=== PATIENT | male | born 1970 | race African-American/Black ===

== ENCOUNTER 2017-05-26 07:50 | Inpatient (IN) ==
[2017-05-26] MEDS ORDERED: FUROSEMIDE 40 MG/4 ML VIAL IV STA (08:20)
--- NOTE | 2017-05-26 08:24 | Emergency Department Note ---
Arrival - Arrival Chief Complaint: Extremity Problem Stated Complaint: both legs aching/sores ED Nursing Triage Note: pt c/o pain and swelling to BLE x4 days. pt reports weeping to parts of lower legs x2 days. Mode of Arrival: Ambulatory Limitations: No Limitations Source: Patient, RN Notes Reviewed Time Seen by Provider: 05/26/17 08:19 - History of Present Illness HPI Narrative: Patient is a 46-year-old white male with a known history of hypertension who is been out of his medications for 2 weeks. The patient complains of lower extremity edema for 2 weeks. For the last week he has had a draining wound from his left pretibial area. He does have some exertional shortness of breath and also has some orthopnea. Has a known history of congestive heart failure. He has been followed in the past by Dr. Alex. Patient denies any chest pain. There is no history of chills or fever. Onset (ago): week(s) (2) Consistency: constant Severity: moderate Quality: other Allergies/Adverse Reactions: Allergies Allergy/AdvReac Type Severity Reaction Status Date / Time No Known Allergies Allergy Verified 05/26/17 08:06 Home Medications: Home Medications Medication Instructions Recorded Confirmed Type Lisinopril [Prinivil] 20 mg PO QAM 03/07/17 03/07/17 History Potassium Chloride Cap/Tab [K Dur] 10 meq PO DAILY #14 tablet 03/07/17 Rx amLODIPine [Norvasc] 10 mg PO QAM 03/07/17 03/07/17 History Glimepiride [Amaryl] 2 mg PO DAILY W/BREAKFAST #30 03/28/17 Rx tablet Spironolactone 12.5 mg PO QAM #30 tablet 03/28/17 Rx Furosemide Tab [Lasix Tab] 40 mg PO BID DIURETIC #60 tablet 05/20/17 Rx Review of System - Review of System 12 point system: reviewed and no additional remarkable complaints except as stated - Review of System Constitutional: Absent: chills, fever Respiratory: Absent: cough, respiratory distress, wheezing Cardiovascular: Present: dyspnea on exertion, orthopnea, edema. Absent: chest pain, palpitations, syncope Gastrointestinal: Absent: abdominal pain, nausea, vomiting Skin: Present: rash Medical,Surgical,& Family Hx - Medical History Cardio: History of: CHF, CAD, Hypertension Endocrine: History of: Diabetes Mellitus (IDDM), Diabetes Mellitus (NIDDM) Rheumatology: History of;: Rheumatoid Arthritis Respiratory: History of: Obstructive Sleep Apnea No history of: Asthma, Bronchitis, COPD, Intubation, Pulmonary Embolism, Pulmonary Hypertension, Pneumonia, Lung Cancer Gastrointestinal: History of: GERD No history of: Bowel Obstruction, Clostridium Difficile, Crohn's Disease, Diverticulitis/ Diverticulosis, Esophageal Varices, Gastrointestinal Bleed, Hemorrhoids, Hematochezia, Hepatitis, Liver Problems, Pancreatitis, Polyps, Ulcerative Colitis, Gastrointestinal Cancer Musculoskeletal: History of: Musculoskeletal Problems (osteoarthritis) Hematology: No history of: Blood Transfusion Reaction Other: History of: Miscellaneous Medical Problems (morbid obesity) No history of: Anesthesia Reactions, Anaphylaxis, Cancer, Eczema, HIV - Surgical History Cardiac Surgeries: Patient Denies: Cardiac Catheterization, Cardiac Surgery, Vascular Access Devices HEENT Surgeries: Patient denies: Tonsilectomy & Adenoidectomy Abdominal Surgeries: Surgical HX of: Abdominal Surgery, Appendectomy, Cholecystectomy, Hernia Repair Patient denies: Colonoscopy, Gastric Bypass Surgery, EGD, Splenectomy - Family History Family History: Reports;: Family Diabetes (MOTHER), Family Hypertension (MOTHER) - Social History Smoking Status: Never smoker Frequency of Alcohol Use: None Type of Drug Use: None Exam Vital Signs: Vital Signs Temperature 98.9 F 05/26/17 08:10 Pulse Rate 88 05/26/17 09:14 Respiratory Rate 20 05/26/17 09:14 Blood Pressure 218/133 05/26/17 09:14 O2 Sat by Pulse Oximetry 99 05/26/17 09:14 GENERAL: This is a well-nourished well-developed morbidly obese black male in no apparent distress. VITAL SIGNS: Reviewed HEENT: Head is atraumatic and normocephalic. Pupils are equal round react to light. Extraocular movements are intact. Oropharynx is benign with moist mucous membranes. NECK: Neck is soft and supple without tenderness. There are no masses. There is no lymphadenopathy. LUNGS: Lungs are clear to auscultation. Chest rises symmetrically. There is no chest wall tenderness. CV: Heart is regular rate and rhythm without murmurs rubs or gallops. ABDOMEN: Abdomen is soft, nontender to palpation. There are no abdominal abnormal masses palpated. There is no organomegaly. Bowel sounds are present and active. SKIN: Skin is warm and dry. No rash. EXTREMITIES: Patient has full range of motion without tenderness. There is 3+ pitting pedal edema with hyperpigmentation of the pretibial areas bilaterally. Patient has serous drainage from the pretibial area on the left. Patient has an absent fourth toe of the left foot. NEUROLOGIC: Awake alert and oriented 4. Cranial nerves II through XII are grossly intact. Motor is 5 over 5 in all extremities bilaterally. Course - Consultations Consultation #1: Discussed with Dr. Nino. Time: 10:12 Consultation #2: Discussed with hospitalist. Patient will be admitted to their service. Results - Labs CBC & BMP: 05/26/17 08:24 05/26/17 08:24 Lab Results: I have reviewed the patients labs Labs: Laboratory Tests 02/21/15 05/26/17 09:43 08:24 Troponin I 0.186 H Urine Opiates Screen Negative Ur Barbiturates Screen Negative Ur Phencyclidine Scrn Negative U Amphetamine/Methamph Negative U Benzodiazepines Scrn Negative U Cocaine Metab Screen Positive H U Cannabinoids Screen Negative - EKG EKG results: interpreted by ERMD - Impressions EKG: Normal sinus rhythm with rate of 80, left axis deviation, nonspecific ST-T wave changes. - Diagnostic Findings Procedure: Chest x-ray: image reviewed by me (Increased pulmonary markings bilaterally, cardiomegaly) Disposition Clinical Impression: Congestive heart failure, Lower extremity edema with skin breakdow, Diabetes mellitus, Essential hypertension, Noncompliance with medication regimen, Renal failure, Venous stasis disease, Cocaine abuse, Cardiomyopathy Case discussed with: patient Disposition: Still a Patient Condition: Stable
[2017-05-26] MEDS ORDERED: FUROSEMIDE 100 MG/10 ML VIAL ONE (08:36)
--- NOTE | 2017-05-26 08:44 | XRay Report ---
History: Dyspnea Date: 05/26/2017 Study: Chest x-ray PA and lateral Comparison exam: May 20, 2017 portable chest x-ray There is mild cardiomegaly. The pulmonary vasculature is slightly prominent. There is some minor hazy edema in the lower lungs. There is trace bilateral pleural effusion. Osseous structures are unchanged. Impression: CHF with some mild bilateral pulmonary edema and trace bilateral pleural effusion PROCEDURE INTERPRETED AT [facility] DEPARTMENT OF RADIOLOGY Final Report Signed by: Dr. Kiah Ramirez
[2017-05-26 08:56] LABS: Basophils % 0.3 % (0.0-0.8); Eosinophils # 0.1 10*3/uL (0.0-0.87); Eosinophils % 0.9 % (0.00-10.9); Hemoglobin 14.8 GM/DL (14.0-18.0); Immature Granulocytes % 0.5 %; Immature Granulocytes Absolute 0.04 #; Lymphocytes # 1.4 10*3/uL (1.4-4.0); Lymphocytes % 18.8 % (21.2-54.2); Mean Corpuscular HGB Conc 31.5 GM/DL (32-36); Mean Corpuscular Hemoglobin 22 PG (27-34); Mean Corpuscular Volume 68.7 FL (87-102); Monocytes # 0.5 10*3/uL (0.11-0.8); Monocytes % 6.3 % (1.7-12.7); Neutrophils # 5.6 10*3/uL (1.4-7.4); Neutrophils % 73.2 % (38.7-73.9); Platelet Count 192 T/CUMM (130-400); Red Blood Count 6.84 MC/CUMM (3.8-5.5); Red Cell Distribution Width 18.7 % (9.3-17.3); White Blood Count 7.7 T/CUMM (4-12)
[2017-05-26 09:08] LABS: Apearance,Urine CLEAR (Clear); Bilirubin,Urine Negative (Negative); Blood, Urine Small mg/dL (Negative); Glucose,Urine (UA) >=500 mg/dL (Negative); Ketones,Urine Negative (Negative); Mucus,Urine Occasional /LPF (Occasional); Nitrite,Urine Negative (Negative); Protein,Urine >=500 MG/DL; RBC,Urine 1 /HPF (0-4); Urine Color Straw (Yellow); Urine Specific Gravity 1.017 (1.001-1.035); Urine Urobilinogen < 2.0 EU/DL (0.2-1.0)
[2017-05-26 09:19] LABS: Barbiturates Screen,Urine Negative (Negative); Benzodiazepines Screen,Urine Negative (Negative); Cannabinoid Screen,Urine Negative (Negative); Opiate Screen,Urine Negative (Negative); Phencyclidine Screen,Urine Negative (Negative)
[2017-05-26 09:26] LABS: Alanine Aminotransferase 29 U/L (16-61); Albumin 2.9 G/DL (3.4-5.0); Alkaline Phosphatase 109 U/L (45-117); Aspartate Amino Transferase 26 U/L (0-37); Bilirubin,Total < 0.39 MG/DL (0.2-1.0); Blood Urea Nitrogen 25 MG/DL (7-18); Calcium 8.9 MG/DL (8.5-10.1); Glucose 407 MG/DL (74-106); Osmolality,Calculated 293.8 MOS/KG (273-304); Potassium 4.8 MMOL/L (3.5-5.1); Sodium 137 MMOL/L (136-145); Total Protein 6.9 G/DL (6.4-8.3)
--- NOTE | 2017-05-26 09:36 | EKG Report ---
Stationary ECG Study [facility] ER Test Date: 05/26/2017 9:32:18 AM Pat Name: NELSON MONTANO Department: Room: Gender: M Physician Office Secretary: : 1970 Requested by: Bakari Cadet Order Number: [id number] Reading MD: PATEL CALDWELL Intervals [place] Rate: 80 P: 50 CO: 161 QRS: -36 QRSD: 103 T: 103 QT: 398 QTc: 434 Interpretive Statements SINUS RHYTHM at 80 bpm LEFT AXIS DEVIATION PATTERN CONSISTENT WITH PULMONARY DISEASE NONSPECIFIC T-WAVE ABNORMALITY Electronically Signed On 05-29-17 08:50:47 CDT by PATEL CALDWELL [email or web address]
[2017-05-26] MEDS: hydrALAZINE 20 MG/1 ML VIAL IV STA ×2 (10:12→10:55)
[2017-05-26 10:40] LABS: Hypochromasia 2+; Target Cells Slight
[2017-05-26] MEDS ORDERED: hydrALAZINE 20 MG/1 ML VIAL ONE (10:56)
--- NOTE | 2017-05-26 11:11 | Cardiology Consult Note ---
Assessment and Plan (1) Acute on chronic systolic heart failure Status: Chronic Assessment and plan: 1. 46-year-old morbidly obese black male with uncontrolled diabetes as well as long history of uncontrolled hypertension it was probable hypertensive cardiomyopathy since at least early 2014 admitted several times the hospital service was to Dr. Alex with heart failure and hypertension. He has been positive for cocaine on numerous occasions. He has been out of his medications for over a week and comes in with severe hypertension and 2 weeks of left and right heart failure symptoms (orthopnea and significant increased lower extremity edema) 2. He appears to be on good medications he simply needs to take them. Aggressive IV diuresis for a short time will be helpful 3. Would add low-dose Coreg 3.125 minutes twice daily for blood pressure control and for hypertensive cardiomyopathy treatment 4. I discussed that he is unlikely to live to be 48 if he does not discontinue all cocaine use. He denies using any for the last month although he is positive today. 5. We discussed his absolute need to take medicines daily without missing. We also discussed his need for primary care follow-up. He says he plans to [facility] when he [facility] a chance. 6. We discussed his need for significant weight loss. He drinks fair amount of soda, will needs 2 meals a day. We discussed need to avoid simple carbohydrates at least 3 times per day. 7. Severely reduced ejection fraction early 2014 was noted. Heart catheterization was not considered previously due to his severe noncompliance. Current Visit: No (2) Cocaine abuse Status: Chronic Current Visit: No (3) Cardiomyopathy Problem details: Etiology unknown, patient has not had cardiac catheterization. This is suspected to be related to uncontrolled hypertension, drug use and medication noncompliance. Status: Chronic Current Visit: No (4) Edema Status: Acute Current Visit: No (5) Morbid obesity Status: Acute Current Visit: No (6) Renal failure Status: Acute Current Visit: Yes History of Present Illness - Consult Narrative History of present illness: Mr. Padgett is a 46 year old male with history of hypertensive cardiac myopathy since at least early 2014. He has been admitted several times the hospital service and once Dr. Alex for heart failure and hypertension. Heart cath was not considered due to his noncompliance which has been severe. He has been reported to be on cocaine since at least early 2014 and reports she has been off now for a month although he is positive on test today. He ran out of medication at least a week ago and has 2 weeks of significant increased lower extreme edema and orthopnea. Is not having chest discomfort palpitations presyncope or syncope. CC: - Home Medications and Allergies Home Medications: Home Medications Medication Instructions Recorded Confirmed Type Lisinopril [Prinivil] 20 mg PO QAM 03/07/17 03/07/17 History Potassium Chloride Cap/Tab [K Dur] 10 meq PO DAILY #14 tablet 03/07/17 Rx amLODIPine [Norvasc] 10 mg PO QAM 03/07/17 03/07/17 History Glimepiride [Amaryl] 2 mg PO DAILY W/BREAKFAST #30 03/28/17 Rx tablet Spironolactone 12.5 mg PO QAM #30 tablet 03/28/17 Rx Furosemide Tab [Lasix Tab] 40 mg PO BID DIURETIC #60 tablet 05/20/17 Rx Allergies/Adverse Reactions: Allergies Allergy/AdvReac Type Severity Reaction Status Date / Time No Known Allergies Allergy Verified 05/26/17 08:06 Medical,Surgical,& Family Hx - Medical History Cardio: History of: CHF, CAD, Hypertension Endocrine: History of: Diabetes Mellitus (IDDM), Diabetes Mellitus (NIDDM) Rheumatology: History of;: Rheumatoid Arthritis Respiratory: History of: Obstructive Sleep Apnea No history of: Asthma, Bronchitis, COPD, Intubation, Pulmonary Embolism, Pulmonary Hypertension, Pneumonia, Lung Cancer Gastrointestinal: History of: GERD No history of: Bowel Obstruction, Clostridium Difficile, Crohn's Disease, Diverticulitis/ Diverticulosis, Esophageal Varices, Gastrointestinal Bleed, Hemorrhoids, Hematochezia, Hepatitis, Liver Problems, Pancreatitis, Polyps, Ulcerative Colitis, Gastrointestinal Cancer Musculoskeletal: History of: Musculoskeletal Problems (osteoarthritis) Hematology: No history of: Blood Transfusion Reaction Other: History of: Miscellaneous Medical Problems (morbid obesity) No history of: Anesthesia Reactions, Anaphylaxis, Cancer, Eczema, HIV - Surgical History Cardiac Surgeries: Patient Denies: Cardiac Catheterization, Cardiac Surgery, Vascular Access Devices HEENT Surgeries: Patient denies: Tonsilectomy & Adenoidectomy Abdominal Surgeries: Surgical HX of: Abdominal Surgery, Appendectomy, Cholecystectomy, Hernia Repair Patient denies: Colonoscopy, Gastric Bypass Surgery, EGD, Splenectomy - Family History Family History: Reports;: Family Diabetes (MOTHER), Family Hypertension (MOTHER) - Social History Smoking Status: Never smoker Frequency of Alcohol Use: None Type of Drug Use: None Physical Examination Vital Signs Temp Pulse Resp BP Pulse Ox 98.9 F 91 H 20 194/110 97 05/26/17 08:03 05/26/17 08:03 05/26/17 08:03 05/26/17 08:03 05/26/17 08:03 General: Present: Appears Well, No Apparent Distress Cardiac: Present: Reg Rate and Rhythm. Absent: Systolic Murmur, Diastolic Murmur Lungs: Present: No Wheeze, Rales, Rhonchi, Other (Distant heart sounds probably due to body habitus) Abdomen: Present: Soft, Non-Tender Extremities: Present: +3 Edema, Other (1 missing small toe.) Result/EKG - Labs CBC & BMP: 05/26/17 08:24 05/26/17 08:24 Labs: Laboratory Results - last 24 hr 05/26/17 05/26/17 05/26/17 08:24 08:24 08:24 WBC 7.7 RBC 6.84 H Hgb 14.8 Hct 47.0 MCV 68.7 L MCH 22 L MCHC 31.5 L RDW 18.7 H Plt Count 192 Neut % (Auto) 73.2 Lymph % (Auto) 18.8 L [place] % (Auto) 6.3 Eos % (Auto) 0.9 Baso % (Auto) 0.3 Neut # (Auto) 5.6 Lymph # (Auto) 1.4 [place] # (Auto) 0.5 Eos # (Auto) 0.1 Baso # (Auto) 0.0 Immature Gran % 0.5 Nucleated RBC % 0.0 Immature Gran # 0.04 Nucleated RBCs # 0.00 Sodium 137 Potassium 4.8 Chloride 105 Carbon Dioxide 26 Anion Gap 10.8 BUN 25 H Creatinine 1.60 H GFR Calculation 96 BUN/Creatinine Ratio 15.00 Glucose 407 H Calculated Osmolality 293.8 Calcium 8.9 Total Bilirubin < 0.39 AST 26 ALT 29 Alkaline Phosphatase 109 Total Protein 6.9 Albumin 2.9 L Globulin 4.0 H Albumin/Globulin Ratio 0.7 L Urine Color Straw Urine Appearance Clear Urine pH 6.0 Ur Specific [place] 1.017 Urine Protein >=500 Urine Glucose (UA) >=500 Urine Ketones Negative Urine Blood Small Urine Nitrate Negative Urine Bilirubin Negative Urine Urobilinogen < 2.0 H Urine Leukocytes Negative Urine RBC 1 Urine Mucus Occasional Ur Culture Indicated? Not indicated Urine Opiates Screen Ur Barbiturates Screen Ur Phencyclidine Scrn U Amphetamine/Methamph U Benzodiazepines Scrn U Cocaine Metab Screen U Cannabinoids Screen 05/26/17 08:24 WBC RBC Hgb Hct MCV MCH MCHC RDW Plt Count Neut % (Auto) Lymph % (Auto) [place] % (Auto) Eos % (Auto) Baso % (Auto) Neut # (Auto) Lymph # (Auto) [place] # (Auto) Eos # (Auto) Baso # (Auto) Immature Gran % Nucleated RBC % Immature Gran # Nucleated RBCs # Sodium Potassium Chloride Carbon Dioxide Anion Gap BUN Creatinine GFR Calculation BUN/Creatinine Ratio Glucose Calculated Osmolality Calcium Total Bilirubin AST ALT Alkaline Phosphatase Total Protein Albumin Globulin Albumin/Globulin Ratio Urine Color Urine Appearance Urine pH Ur Specific [place] Urine Protein Urine Glucose (UA) Urine Ketones Urine Blood Urine Nitrate Urine Bilirubin Urine Urobilinogen Urine Leukocytes Urine RBC Urine Mucus Ur Culture Indicated? Urine Opiates Screen Negative Ur Barbiturates Screen Negative Ur Phencyclidine Scrn Negative U Amphetamine/Methamph Negative U Benzodiazepines Scrn Negative U Cocaine Metab Screen Positive H U Cannabinoids Screen Negative
--- NOTE | 2017-05-26 11:17 | Hospitalist History & Physical ---
Assessment and Plan - Time spent with patient Time spent with patient: Less than 30 minutes (1) CHF (congestive heart failure) Status: Acute Assessment and plan: Chest x-ray shows evidence of CHF with some mild bilateral pulmonary edema and trace bilateral pleural effusion. BNP is 134. Will continue IV Lasix. Obtain troponins q8 3, CBC and BMP in the morning. CIERRA sandiejuan Current Visit: No (2) Lower extremity edema Status: Acute Assessment and plan: IV Lasix. CIERRA hosjuan. Current Visit: No (3) Diabetes mellitus Status: Acute Assessment and plan: Serum glucose 406. Sliding scale insulin per protocol. Accu-Cheks ACHS. Diabetic consistent diet. Current Visit: Yes (4) Essential hypertension Status: Acute Assessment and plan: Patient was given IV hydralazine in the ED and responded appropriately. Will restart home medications. Current Visit: Yes (5) Noncompliance with medication regimen Status: Acute Assessment and plan: Patient admits to medical noncompliance stating that he primarily uses the ED as his PCP. We will consult social work/case management to assist with prescription assistance planning Current Visit: Yes (6) Renal failure Status: Acute Current Visit: Yes (7) Cocaine abuse Status: Acute Current Visit: Yes History of Present Illness Chief complaint: CHF exacerbation History of present illness: Mr. Padgett is a 46 year old -[place] male with a past medical history significant for medical noncompliance, congestive heart failure, hypertension, diabetes mellitus, obstructive sleep apnea and cocaine abuse who presents to the ED today with complaints of shortness of breath and lower extremity edema 2 weeks. The patient was recently seen here in the emergency room 2 weeks ago and approximately 1 month ago where he was treated for similar problems and discharge from the ED with prescriptions for antihypertensives. Patient states that he has not been able to refill his medications due to transportation issues. He also states that he does not have a primary care doctor and no medical insurance. On admission, the patient is sitting on the side of the bed and in no acute distress. He complains only of not having any of his medications. He notes that this SOB has progressively worsened with exertion, however he is satting 100% on 2L per NC. He does confirm pitting edema in his lower extremities bilaterally with a draining wound from his left leg, abdominal distention, headache and blurry vision. He denies cough, chest pain, palpitations, pain with inspiration, N/V, change in appetite. Lab work on admission is significant for: WBC 7.7, Hgb 14.8, Hct 47.0, MCV 68.7, sodium 135 , potassium 4.8, chloride 105, BUN 25, creatinine 1.60, glucose 407, BNP 134. Urinalysis is unremarkable. Toxicology is positive for cocaine. After discussion with Dr. Figueredo, ER physician, and Dr. Tony, admitting physician, patient will be admitted to the hospital medicine service for further evaluation and treatment. He is a full code. Home meds have been reviewed and reconciled. Home Medications Medication Instructions Recorded Confirmed Type amLODIPine [Norvasc] 10 mg PO QAM 03/07/17 05/26/17 History Glimepiride [Amaryl] 2 mg PO DAILY W/BREAKFAST #30 03/28/17 05/26/17 Rx tablet Spironolactone 12.5 mg PO QAM #30 tablet 03/28/17 05/26/17 Rx Furosemide Tab [Lasix Tab] 40 mg PO BID DIURETIC #60 tablet 05/20/17 05/26/17 Rx Allergies Allergy/AdvReac Type Severity Reaction Status Date / Time No Known Allergies Allergy Verified 05/26/17 08:06 Medical,Surgical,& Family Hx - Medical History Cardio: History of: CHF, CAD, Hypertension Endocrine: History of: Diabetes Mellitus (IDDM), Diabetes Mellitus (NIDDM) Rheumatology: History of;: Rheumatoid Arthritis Respiratory: History of: Obstructive Sleep Apnea No history of: Asthma, Bronchitis, COPD, Intubation, Pulmonary Embolism, Pulmonary Hypertension, Pneumonia, Lung Cancer Gastrointestinal: History of: GERD No history of: Bowel Obstruction, Clostridium Difficile, Crohn's Disease, Diverticulitis/ Diverticulosis, Esophageal Varices, Gastrointestinal Bleed, Hemorrhoids, Hematochezia, Hepatitis, Liver Problems, Pancreatitis, Polyps, Ulcerative Colitis, Gastrointestinal Cancer Musculoskeletal: History of: Musculoskeletal Problems (osteoarthritis) Hematology: No history of: Blood Transfusion Reaction Other: History of: Miscellaneous Medical Problems (morbid obesity) No history of: Anesthesia Reactions, Anaphylaxis, Cancer, Eczema, HIV - Surgical History Cardiac Surgeries: Patient Denies: Cardiac Catheterization, Cardiac Surgery, Vascular Access Devices HEENT Surgeries: Patient denies: Tonsilectomy & Adenoidectomy Abdominal Surgeries: Surgical HX of: Abdominal Surgery, Appendectomy, Cholecystectomy, Hernia Repair Patient denies: Colonoscopy, Gastric Bypass Surgery, EGD, Splenectomy - Family History Family History: Reports;: Family Diabetes (MOTHER), Family Hypertension (MOTHER) - Social History Smoking Status: Never smoker Frequency of Alcohol Use: None Type of Drug Use: None Marital Status: Single Lives With:: Parent Functional capacity: independent ambulation 12 point system: reviewed and no additional remarkable complaints except as stated Exam - Constitutional Vitals: Period Temp Pulse Resp BP Sys/Snyder Pulse Ox Last 24 Hr 98.9 F-98.9 F 82-110 20-20 167-218/90-133 97-99 Exam: General appearance: Morbidly obese, no acute distress - Head Head exam: Present: normocephalic, atraumatic - Eye Eye exam: Present: EOMI. Absent: conjunctival injection, nystagmus Pupils: Present: ESTELA, normal accommodation - ENT ENT exam: Present: normal exam, normal external ear exam - Neck Neck exam: Present: normal inspection. Absent: lymphadenopathy, tenderness, thyromegaly - Respiratory Respiratory exam: Present: decreased breath sounds bilaterally. - Cardiovascular Cardiovascular exam: Present: regular rate and rhythm. Absent: carotid bruit, gallop, rubs - GI/Abdominal GI/Abdominal exam: Present: normal bowel sounds. Absent: ascites, distended, mass - Extremities Exam Extremities exam: Present: 2+ pitting edema bilaterally, left pretibial draining wound - Back Exam Back exam: Absent: CVA tenderness (L), CVA tenderness (R) - Neurological Exam Neurological exam: Present: alert, oriented X3, CN II-XII intact - Psychiatric Psychiatric exam: Present: normal affect, normal mood - Skin Skin exam: Present: normal color, warm, dry Results - Labs CBC & BMP: 05/26/17 08:24 05/26/17 08:24 Lab Results: I have reviewed the past 24 hour labs - Diagnostic Findings Procedure: Chest x-ray: image reviewed by me, report reviewed by me
[2017-05-26] MEDS ORDERED: DEXTROSE 50% 25 GM/50 ML VIAL IV PRN (14:21)
[2017-05-26] MEDS ORDERED: MAGNESIUM SULF RIDER 4 GM in PREMIX 1 EACH IV PRN (14:21)
[2017-05-26] MEDS ORDERED: POTASSIUM CHLORIDE 20 MEQ TABLET PO PRN (14:21)
[2017-05-26] MEDS ORDERED: MAGNESIUM SULF RIDER 2 GM in PREMIX 1 EACH IV PRN (14:21)
[2017-05-26] MEDS ORDERED: GLUCAGON 1 MG VIAL IM PRN (14:21)
[2017-05-26] MEDS: PANTOPRAZOLE 40 MG TABLET PO SCH (15:56)
[2017-05-26] MEDS: FUROSEMIDE 40 MG/4 ML VIAL IV SCH (16:36)
[2017-05-26] MEDS: INSULIN LISPRO 100 UNIT/ML SUBCUT SCH ×2 (16:37→20:34)
[2017-05-26] MEDS: CYCLOBENZAPRINE 10 MG TABLET PO PRN (20:00)
--- NOTE | 2017-05-27 07:39 | XRay Report ---
History short of breath Comparison 05/26/2017 The heart and vessels are mildly enlarged There remain mild diffuse bilateral pulmonary opacities minimally improved in the interval. No more focal consolidation seen. Impression: Minimal improvement with continued mild diffuse pulmonary edema PROCEDURE INTERPRETED AT [facility] DEPARTMENT OF RADIOLOGY Final Report Signed by: Dr. Ignacia Can
[2017-05-27 07:46] LABS: Basophils % 0.2 % (0.0-0.8); Eosinophils # 0.1 10*3/uL (0.0-0.87); Hematocrit 46.1 VOL% (42.0-52.0); Hemoglobin 14.2 GM/DL (14.0-18.0); Immature Granulocytes % 0.2 %; Immature Granulocytes Absolute 0.02 #; Lymphocytes # 1.4 10*3/uL (1.4-4.0); Lymphocytes % 16.9 % (21.2-54.2); Mean Corpuscular HGB Conc 30.8 GM/DL (32-36); Mean Corpuscular Hemoglobin 21 PG (27-34); Monocytes # 0.8 10*3/uL (0.11-0.8); Monocytes % 9.5 % (1.7-12.7); Neutrophils % 72.2 % (38.7-73.9); Platelet Count 185 T/CUMM (130-400); Red Blood Count 6.78 MC/CUMM (3.8-5.5); Red Cell Distribution Width 18.6 % (9.3-17.3); White Blood Count 8.4 T/CUMM (4-12)
[2017-05-27 08:04] LABS: Hypochromasia 2+; Microcytosis 1+; Ovalocytes Slight
[2017-05-27 08:05] LABS: Platelet Estimate Adequate
[2017-05-27 08:21] LABS: Calcium 9.3 MG/DL (8.5-10.1); Osmolality,Calculated 286.7 MOS/KG (273-304); Potassium 4.2 MMOL/L (3.5-5.1)
--- NOTE | 2017-05-27 08:29 | Hospitalist Progress Note ---
Assessment and Plan (1) Acute on chronic systolic heart failure Status: Chronic Assessment and plan: Status: Acute Assessment and plan: Chest x-ray shows evidence of CHF with some mild bilateral pulmonary edema and trace bilateral pleural effusion. BNP is 134. Will continue IV Lasix. card consulted will follow their recs , also will get ECHO Current Visit: No (2) Lower extremity edema Status: Acute Assessment and plan: IV Lasix. CIERRA hoses. Current Visit: No (3) Diabetes mellitus Status: Acute Assessment and plan: Sliding scale insulin per protocol. Accu-Cheks ACHS. Diabetic consistent diet. Current Visit: Yes (4) Essential hypertension Status: Acute Assessment and plan: Will restart home medications. add coreg as per CARD Current Visit: Yes (5) Noncompliance with medication regimen Status: Acute Assessment and plan: Patient admits to medical noncompliance stating that he primarily uses the ED as his PCP. We will consult social work/case management to assist with prescription assistance planning Current Visit: Yes (6) Renal failure Status: Acute Current Visit: Yes (7) Cocaine abuse Status: Acute Current Visit: Yes Current Visit: No Hospitalist: Subjective Interval history: feeling better than yesterday . still mild sob Exam - Constitutional Vitals: Period Temp Pulse Resp BP Sys/Snyder Pulse Ox Last 24 Hr 96.8 F-98.3 F 81-98 18-20 121-218/59-133 92-100 heent, pearle neck, supple. chest bibasilar rales [facility], s1 s2. abd, soft, bs+ measurement psychologist, alert orientedx3 afocal lower extrmity, 2+ pedal edema with some skin tears Results - Labs CBC & BMP: 05/27/17 07:13 05/27/17 07:13
[2017-05-27] MEDS: GLIMEPIRIDE 2 MG TABLET PO SCH (08:45)
[2017-05-27] MEDS: INSULIN LISPRO 100 UNIT/ML SUBCUT SCH ×4 (08:46→20:33)
[2017-05-27] MEDS: PANTOPRAZOLE 40 MG TABLET PO SCH (08:46)
[2017-05-27] MEDS: FUROSEMIDE 40 MG/4 ML VIAL IV SCH ×2 (08:46→16:50)
[2017-05-27] MEDS: MUPIROCIN 2% OINT 22 GM TUBE TOP SCH ×2 (08:46→20:33)
[2017-05-27] MEDS ORDERED: LOSARTAN 50 MG TABLET PO SCH (09:00)
[2017-05-27] MEDS ORDERED: amLODIPine 10 MG TABLET PO SCH (09:00)
[2017-05-27] MEDS ORDERED: SKIN HEALING OINT (AQUAPHOR) 50 GM TUBE TOP PRN (10:37)
--- NOTE | 2017-05-27 13:09 | ECHO Report ---
Walter Padgett Exam Date: 05/27/2017 07:18 Referring Physician: Technologist: Annie Hartman RDCS Age: 46 Ht (in): 71 Wt (lb): 409 Gender: M Exam Location: [facility] Echo Indications: Acute on chronic systolic (congestive) heart failure, Edema, unspecified, IDDM, Essential (primary) hypertension, Cocaine abuse, BETY, Shortness of breath, Cardiomyopathy, unspecified, Morbid (severe) obesity due to excess calories BP: 121 / 76 HR: 90 Rhythm: Sinus Technical Quality: Very technically difficult study IMPRESSIONS Very technically difficult study due to body habitus as the patient weighs greater than 400 pounds. Endocardial definition is poor so it is difficult to assess left ventricular function but it is estimated at approximately 40%. Moderate concentric left ventricular hypertrophy with moderate diastolic dysfunction. Bilateral atrial enlargement. Trace to mild tricuspid valve regurgitation. Trace to mild mitral valve regurgitation. MEASUREMENTS (Male / Female) Normal Values 2D ECHO LV Diastolic Diameter PLAX 4.9 cm 4.2 - 5.9 / 3.9 - 5.3 cm LV Systolic Diameter PLAX 4.0 cm LV Fractional Shortening PLAX 18.1 % IVS Diastolic Thickness 1.8 cm 0.6 - 1.0 / 0.6 - 0.9 cm LVPW Diastolic Thickness 1.8 cm 0.6 - 1.0 / 0.6 - 0.9 cm RV Internal Dim ED PLAX 4.2 cm Aortic Root Diameter 3.3 cm LA Systolic Diameter LX 4.8 cm 3.0 - 4.0 / 2.7 - 3.8 cm DOPPLER TR Peak Velocity 307.0 cm/s TR Peak Gradient 37.7 mmHg FINDINGS Left Ventricle Normal left ventricular cavity size. Moderate concentric left ventricular hypertrophy with moderate diastolic dysfunction. Endocardial definition is poor so it is difficult to assess left ventricular function but it estimated is at 40%. Right Ventricle The right ventricle is normal in size and function. Right Atrium Moderately increased right atrial size. Left Atrium Moderately increased left atrial size. Mitral Valve Grossly normal mitral valve. Trace to mild mitral valve regurgitation. Aortic Valve Grossly normal aortic valve without significant sclerosis or stenosis. There is no aortic regurgitation. Tricuspid Valve Grossly normal tricuspid valve. Trace to mild tricuspid valve regurgitation. Tricuspid regurgitation velocities suggest a PAP of 48 mmHg. Pulmonic Valve Grossly normal pulmonic valve. Trace pulmonary valve regurgitation. Pericardium Normal pericardium without effusion. Aorta Normal ascending aorta dimension. Dontrell Tobin (Electronically Signed) Final Date: 27 May 2017 13:08
--- NOTE | 2017-05-27 15:32 | Cardiology Progress Note ---
I, Sola Melgar RN, am scribing for, and in the presence of, Dontrell Tobin MD 15:32. Assessment and Plan - Time spent with patient Time spent with patient: Greater than 30 minutes (Due to assessment, planning, documentation, medication review) (1) Acute on chronic systolic heart failure Status: Chronic Assessment and plan: Continue diuresis and optimization of medical management. Current Visit: No (2) Cardiomyopathy Status: Chronic Assessment and plan: On his most recent echocardiogram, his ejection fraction is estimated to be around 40%. However, given the patient's morbid obesity, the images are limited. At this time I would continue to try to optimize medical management. I am going to make some adjustments in his medications. Current Visit: Yes (3) Cocaine abuse Status: Chronic Assessment and plan: Numerous urine drug screens positive for cocaine in the past, and he is positive for cocaine this admission. Current Visit: Yes (4) Diabetes mellitus Status: Chronic Assessment and plan: History of uncontrolled diabetes. Glucose levels ranging 200-300. Defer to hospital medicine. Current Visit: Yes (5) Essential hypertension Status: Chronic Assessment and plan: History of uncontrolled hypertension, but he has also been medically noncompliant. Significant hypertension in the ED yesterday, BP 218/133. I am going to make some more adjustments in his medical therapy. Current Visit: Yes (6) Noncompliance with medication regimen Status: Chronic Assessment and plan: Reinforce absolute necessity of compliance with medications. In the past, he has been referred to [facility] for medication refills, but upon current admission, he reports he experienced transportation issues and was unable to refill meds. Current Visit: Yes (7) Morbid obesity Status: Chronic Assessment and plan: Caloric intake restriction and dietary counseling. Current Visit: No Cardiology - PN: Subj Interval history: PRIMARY BAKERY ASSISTANT: SUMMARY: Mr. Padgett is a 46-year-old black with past medical history of uncontrolled diabetes hypertension, obstructive sleep apnea, and GERD. He has a known cardiomyopathy, felt to be hypertensive, and he has required numerous hospital admissions for acute on chronic systolic congestive heart failure. Most recent echocardiogram in January 2017 with severely reduced EF 15-20%. Numerous urine drug screens positive for cocaine in the past, and he has received counseling for this. Patient has also been medically noncompliant in the past, and he has missed several follow-up appointments at [facility]. Patient presented to [facility] ED on the morning of May 26 complaining of shortness of breath and an increase in lower extremity edema. He was also orthopneic. Reported that he had run out of his medications a little over 1 week prior to presentation, and reported he has not been able to refill them due to transportation issues. Extremely hypertensive and emergency room with BP 218/133. Admitted to [facility] floor per hospital medicine, and cardiology was asked to see for evaluation of heart failure. Since admission to hospital, he has been started on aggressive diuresis, antihypertensives resumed. May: Mr. Padgett is resting quietly in bed this afternoon. He is in no acute distress. He rested well overnight, and he reports his shortness of breath is much better today. He has not been ambulating much, and increasing activity has been discussed. Patient reports frequent urinary output since initiation of Lasix yesterday. Bilateral lower extremity edema has shown some improvement today, but extremities distillery worker general to touch. Denies chest pain. Systolic BP 150-175 mmHg range. Pulse is 80s and regular by exam. Labs reviewed. Cell counts unremarkable. Electrolytes are within acceptable range. Renal function stable creatinine 1.5. Current Medications Amlodipine Besylate (Norvasc) 10 mg PO QAM [facility] Last Admin: 05/27/17 08:45 Dose: 10 mg Cyclobenzaprine HCl (Flexeril) 10 mg PO TID PRN PRN Reason: Muscle Spasm Last Admin: 05/26/17 20:00 Dose: 10 mg Dextrose/Water (D50) 25 gm IV PRN PRN PRN Reason: Hypoglycemia with IV access Furosemide (Lasix Inj) 80 mg IV BID DIURETIC [facility] Last Admin: 05/27/17 08:46 Dose: 80 mg Glimepiride (Amaryl) 2 mg PO DAILY W/BREAKFAST [facility] Last Admin: 05/27/17 08:45 Dose: 2 mg Glucagon () 1 mg IM PRN PRN PRN Reason: Hypoglycemia w/o IV access Magnesium Sulfate 2 gm/ Premix 50 mls @ 25 mls/hr IV .PER PROTOCOL PRN; Protocol PRN Reason: Per Protocol Magnesium Sulfate 4 gm/ Premix 100 mls @ 25 mls/hr IV .PER PROTOCOL PRN; Protocol PRN Reason: Per Protocol Insulin Human Lispro (Humalog) 0 unit SUBCUT ACHS [facility] PRN Reason: Protocol Last Admin: 05/27/17 11:19 Dose: 10 unit Losartan Potassium (Cozaar) 50 mg PO DAILY [facility] Last Admin: 05/27/17 08:46 Dose: 50 mg Mupirocin (Bactroban Oint) 1 applic TOP BID [facility] Last Admin: 05/27/17 08:46 Dose: 1 applic Pantoprazole Sodium (Protonix Tab) 40 mg PO DAILY [facility] Last Admin: 05/27/17 08:46 Dose: 40 mg Petrolatum (Aquaphor) 1 applic TOP PRN PRN PRN Reason: Dry Skin Potassium Chloride (K Dur) 20 meq PO .PER PROTOCOL PRN; Protocol PRN Reason: Per Protocol Exam (Progress Note) - Constitutional Vitals: Period Temp Pulse Resp BP Sys/Snyder Pulse Ox Last 24 Hr 96.8 F-98.3 F 81-98 16-20 121-178/59-99 92-100 General appearance: no acute distress, morbidly obese - Head Head exam: Present: normal inspection. Absent: abrasion, hematoma, laceration - Eye Eye exam: Absent: nystagmus, periorbital swelling Pupils: Present: ESTELA. Absent: dilated, fixed - ENT ENT exam: Present: normal external ear exam - Neck Neck exam: Present: normal inspection. Absent: tenderness - Respiratory Respiratory exam: Present: rales (Bibasilarly). Absent: accessory muscle use, wheezes - Cardiovascular Cardiovascular exam: Present: regular rate and rhythm. Absent: bradycardia, diastolic murmur, irregular rhythm, systolic murmur - GI/Abdominal GI/Abdominal exam: Present: other (Hypoactive bowel sounds; obese abdomen). Absent: firm, tenderness - Extremities Exam Extremities exam: Present: edema (2+ pitting edema bilateral lower extremities) . Absent: calf tenderness - Neurological Exam Neurological exam: Present: alert, oriented X3 - Psychiatric Psychiatric exam: Present: normal affect, normal mood. Absent: agitated, anxious, depressed - Skin Skin exam: Present: warm, dry, other (Left garcia with skin tear and drainage). Absent: cyanosis, diaphoretic, rash Result/EKG - Labs CBC & BMP: 05/27/17 07:13 05/27/17 07:13 Lab Results: I have reviewed the past 24 hour labs Labs: Laboratory Results - last 24 hr 05/26/17 05/26/17 05/26/17 11:09 11:09 15:17 WBC RBC Hgb Hct MCV MCH MCHC RDW Plt Count Neut % (Auto) Lymph % (Auto) Bonner % (Auto) Eos % (Auto) Baso % (Auto) Neut # (Auto) Lymph # (Auto) Bonner # (Auto) Eos # (Auto) Baso # (Auto) Immature Gran % Nucleated RBC % Immature Gran # Nucleated RBCs # Platelet Estimate Hypochromasia Microcytosis Ovalocytes Morphology Comment Sodium Potassium Chloride Carbon Dioxide Anion Gap BUN Creatinine GFR Calculation BUN/Creatinine Ratio Glucose POC Glucose Hemoglobin A1c 11.6 H Calculated Osmolality Calcium Troponin I 0.043 B-Natriuretic Peptide 134 H 05/26/17 05/26/17 05/26/17 19:16 19:47 22:05 WBC RBC Hgb Hct MCV MCH MCHC RDW Plt Count Neut % (Auto) Lymph % (Auto) Bonner % (Auto) Eos % (Auto) Baso % (Auto) Neut # (Auto) Lymph # (Auto) Bonner # (Auto) Eos # (Auto) Baso # (Auto) Immature Gran % Nucleated RBC % Immature Gran # Nucleated RBCs # Platelet Estimate Hypochromasia Microcytosis Ovalocytes Morphology Comment Sodium Potassium Chloride Carbon Dioxide Anion Gap BUN Creatinine GFR Calculation BUN/Creatinine Ratio Glucose POC Glucose 194 H Hemoglobin A1c Calculated Osmolality Calcium Troponin I 0.043 0.056 H D B-Natriuretic Peptide 05/27/17 05/27/17 05/27/17 07:13 07:13 07:35 WBC 8.4 RBC 6.78 H Hgb 14.2 Hct 46.1 MCV 68.0 L MCH 21 L MCHC 30.8 L RDW 18.6 H Plt Count 185 Neut % (Auto) 72.2 Lymph % (Auto) 16.9 L Bonner % (Auto) 9.5 Eos % (Auto) 1.0 Baso % (Auto) 0.2 Neut # (Auto) 6.0 Lymph # (Auto) 1.4 Bonner # (Auto) 0.8 Eos # (Auto) 0.1 Baso # (Auto) 0.0 Immature Gran % 0.2 Nucleated RBC % 0.0 Immature Gran # 0.02 Nucleated RBCs # 0.00 Platelet Estimate Adequate Hypochromasia 2+ Microcytosis 1+ Ovalocytes Slight Morphology Comment Sodium 138 Potassium 4.2 Chloride 102 Carbon Dioxide 29 Anion Gap 11.2 BUN 22 H Creatinine 1.50 H GFR Calculation 103 BUN/Creatinine Ratio 14.00 Glucose 258 H POC Glucose 278 H Hemoglobin A1c Calculated Osmolality 286.7 Calcium 9.3 Troponin I B-Natriuretic Peptide 05/27/17 11:14 WBC RBC Hgb Hct MCV MCH MCHC RDW Plt Count Neut % (Auto) Lymph % (Auto) Bonner % (Auto) Eos % (Auto) Baso % (Auto) Neut # (Auto) Lymph # (Auto) Bonner # (Auto) Eos # (Auto) Baso # (Auto) Immature Gran % Nucleated RBC % Immature Gran # Nucleated RBCs # Platelet Estimate Hypochromasia Microcytosis Ovalocytes Morphology Comment Sodium Potassium Chloride Carbon Dioxide Anion Gap BUN Creatinine GFR Calculation BUN/Creatinine Ratio Glucose POC Glucose 285 H Hemoglobin A1c Calculated Osmolality Calcium Troponin I B-Natriuretic Peptide - Diagnostic Findings Procedure: Chest x-ray: image reviewed by me, report reviewed by me - EKG EKG results: interpreted by me, no acute changes EKG shows: sinus rhythm IMahad Michael, MD, personally performed the services described in this documentation, ascribed by Soal Melgar RN in my presence, and it is both accurate and complete 532 .
[2017-05-27] MEDS: CARVEDILOL 12.5 MG TABLET PO SCH (20:32)
[2017-05-28 05:24] LABS: Basophils % 0.2 % (0.0-0.8); Eosinophils # 0.1 10*3/uL (0.0-0.87); Eosinophils % 1.2 % (0.00-10.9); Hematocrit 44.7 VOL% (42.0-52.0); Immature Granulocytes % 0.4 %; Immature Granulocytes Absolute 0.03 #; Mean Corpuscular HGB Conc 31.3 GM/DL (32-36); Mean Corpuscular Hemoglobin 21 PG (27-34); Mean Corpuscular Volume 67.8 FL (87-102); Monocytes # 0.8 10*3/uL (0.11-0.8); Monocytes % 9.3 % (1.7-12.7); Neutrophils # 5.3 10*3/uL (1.4-7.4); Neutrophils % 64.9 % (38.7-73.9); Platelet Count 181 T/CUMM (130-400); Red Blood Count 6.59 MC/CUMM (3.8-5.5); Red Cell Distribution Width 18.3 % (9.3-17.3); White Blood Count 8.1 T/CUMM (4-12)
[2017-05-28 05:44] LABS: Hypochromasia Slight; Microcytosis Slight; Platelet Estimate Normal
[2017-05-28 05:49] LABS: Calcium 8.7 MG/DL (8.5-10.1); Potassium 4.1 MMOL/L (3.5-5.1)
[2017-05-28] MEDS: PANTOPRAZOLE 40 MG TABLET PO SCH (09:09)
[2017-05-28] MEDS: LOSARTAN 50 MG TABLET PO SCH (09:10)
[2017-05-28] MEDS: GLIMEPIRIDE 2 MG TABLET PO SCH (09:10)
[2017-05-28] MEDS: FUROSEMIDE 40 MG/4 ML VIAL IV SCH (09:12)
[2017-05-28] MEDS: INSULIN LISPRO 100 UNIT/ML SUBCUT SCH ×4 (09:14→22:08)
[2017-05-28] MEDS: MUPIROCIN 2% OINT 22 GM TUBE TOP SCH ×2 (09:15→20:57)
[2017-05-28] MEDS: CARVEDILOL 12.5 MG TABLET PO SCH ×2 (09:19→20:56)
[2017-05-28] MEDS: CYCLOBENZAPRINE 10 MG TABLET PO PRN (09:48)
--- NOTE | 2017-05-28 13:46 | Cardiology Progress Note ---
I, Sola Melgar RN, am scribing for, and in the presence of, Dontrell Tobin MD 13:42. Assessment and Plan - Time spent with patient Time spent with patient: Greater than 30 minutes (1) Acute on chronic systolic heart failure Status: Chronic Assessment and plan: Continue current management. Status is much improved since admission. I discussed compliance with the patient again today. I am going to drop off of his case at this time. I would continue his current medications as an outpatient, but convert him to oral diuretic. He can follow-up with his primary provider and Dr. Alex, his primary architect in training on a routine basis after discharge. Please call if I can be of further assistance. Current Visit: No (2) Cardiomyopathy Status: Chronic Assessment and plan: Echocardiogram yesterday with EF estimated around 40%. This was a technically difficult study as patient has severe morbid obesity. At this time, I feel the best approach is to continue to medical management and improve his lifestyle. Current Visit: Yes (3) Cocaine abuse Status: Chronic Assessment and plan: Numerous urine drug screens positive for cocaine in the past, and he is positive for cocaine this admission. Current Visit: Yes (4) Diabetes mellitus Status: Chronic Assessment and plan: History of uncontrolled diabetes. Glucose levels greater than 300 today. Defer to hospital medicine. Current Visit: Yes (5) Essential hypertension Status: Chronic Assessment and plan: This is dramatically better after medication adjustments. Current Visit: Yes (6) Noncompliance with medication regimen Status: Chronic Assessment and plan: Reinforce absolute necessity of compliance with medications. In the past, he has been referred to [facility] for medication refills, but upon current admission, he reports he experienced transportation issues and was unable to refill meds. Current Visit: Yes (7) Morbid obesity Status: Chronic Assessment and plan: Caloric intake restriction and dietary counseling. Current Visit: No Cardiology - PN: Subj Interval history: PRIMARY CERTIFIED PUBLIC ACCOUNTANT: DR. ALEX SUMMARY: Mr. Padgett is a 46-year-old black with past medical history of uncontrolled diabetes hypertension, obstructive sleep apnea, and GERD. He has a known cardiomyopathy, felt to be hypertensive, and he has required numerous hospital admissions for acute on chronic systolic congestive heart failure. Most recent echocardiogram this admission shows ejection fraction estimated at around 40%. Numerous urine drug screens positive for cocaine in the past, and he has received counseling for this. Patient has also been medically noncompliant in the past, and he has missed several follow-up appointments at [facility] clinic. Patient presented to [facility] ED on the morning of May 26 complaining of shortness of breath and an increase in lower extremity edema. He was also orthopneic. Reported that he had run out of his medications a little over 1 week prior to presentation, and reported he has not been able to refill them due to transportation issues. Extremely hypertensive and emergency room with BP 218/133. Admitted to [facility] floor per hospital medicine, and cardiology was asked to see for evaluation of heart failure. Since admission to hospital, he has been started on aggressive diuresis, antihypertensives resumed. May: Patient is awake and alert, and he is in no acute respiratory distress. Excellent appetite this morning. No chest pain shortness of breath. Reports he is not having dyspnea on exertion with ambulation. No orthopnea, and he is basically lying flat in bed upon arrival to room this morning. Bilateral lower extremity edema continues to improve. Blood pressure is improved today with systolic ranging 130-150. Creatinine with slight increased to 1.8 (1.5 previously). Electrolytes within acceptable range. Glucose level greater than 300. Overall, he appears to be much improved. Current Medications Carvedilol (Coreg) 12.5 mg PO BID [facility] Last Admin: 05/27/17 20:32 Dose: 12.5 mg Cyclobenzaprine HCl (Flexeril) 10 mg PO TID PRN PRN Reason: Muscle Spasm Last Admin: 05/26/17 20:00 Dose: 10 mg Dextrose/Water (D50) 25 gm IV PRN PRN PRN Reason: Hypoglycemia with IV access Furosemide (Lasix Inj) 80 mg IV BID DIURETIC [facility] Last Admin: 05/27/17 16:50 Dose: 80 mg Glimepiride (Amaryl) 2 mg PO DAILY W/BREAKFAST [facility] Last Admin: 05/27/17 08:45 Dose: 2 mg Glucagon () 1 mg IM PRN PRN PRN Reason: Hypoglycemia w/o IV access Magnesium Sulfate 2 gm/ Premix 50 mls @ 25 mls/hr IV .PER PROTOCOL PRN; Protocol PRN Reason: Per Protocol Magnesium Sulfate 4 gm/ Premix 100 mls @ 25 mls/hr IV .PER PROTOCOL PRN; Protocol PRN Reason: Per Protocol Insulin Human Lispro (Humalog) 0 unit SUBCUT ACHS [facility] PRN Reason: Protocol Last Admin: 05/27/17 20:33 Dose: 14 unit Losartan Potassium (Cozaar) 100 mg PO DAILY [facility] Mupirocin (Bactroban Oint) 1 applic TOP BID [facility] Last Admin: 05/27/17 20:33 Dose: 1 applic Nifedipine (Procardia Xl) 30 mg PO BEDTIME [facility] Last Admin: 05/27/17 20:32 Dose: 30 mg Pantoprazole Sodium (Protonix Tab) 40 mg PO DAILY [facility] Last Admin: 05/27/17 08:46 Dose: 40 mg Petrolatum (Aquaphor) 1 applic TOP PRN PRN PRN Reason: Dry Skin Potassium Chloride (K Dur) 20 meq PO .PER PROTOCOL PRN; Protocol PRN Reason: Per Protocol Exam (Progress Note) - Constitutional Vitals: Period Temp Pulse Resp BP Sys/Snyder Pulse Ox Last 24 Hr 97.6 F-98.3 F 79-88 18-20 132-190/68-93 96-98 Exam: General appearance: no acute distress, morbidly obese - Head Head exam: Present: normal inspection. Absent: abrasion, hematoma, laceration - Eye Eye exam: Absent: nystagmus, periorbital swelling Pupils: Present: ESTELA. Absent: dilated, fixed - ENT ENT exam: Present: normal external ear exam - Neck Neck exam: Present: normal inspection. Absent: tenderness - Respiratory Respiratory exam: Present: rales -bibasilarly (improved today). Absent: accessory muscle use, wheezes, rhonchi - Cardiovascular Cardiovascular exam: Present: regular rate and rhythm. Absent: bradycardia, diastolic murmur, irregular rhythm, systolic murmur - GI/Abdominal GI/Abdominal exam: Present: other (Hypoactive bowel sounds; obese abdomen). Absent: firm, tenderness - Extremities Exam Extremities exam: Present: edema (1-2+ pitting edema bilateral lower extremities ). Absent: calf tenderness - Neurological Exam Neurological exam: Present: alert, oriented X3 - Psychiatric Psychiatric exam: Present: normal affect, normal mood. Absent: agitated, anxious, depressed - Skin Skin exam: Present: warm, dry, other (Left garcia with skin tear and drainage). Absent: cyanosis, diaphoretic, rash Result/EKG - Labs CBC & BMP: 05/28/17 04:17 07/19/17 04:17 Lab Results: I have reviewed the past 24 hour labs Labs: Laboratory Results - last 24 hr 05/27/17 05/27/17 05/27/17 11:14 15:19 19:19 WBC RBC Hgb Hct MCV MCH MCHC RDW Plt Count Neut % (Auto) Lymph % (Auto) Sharp % (Auto) Eos % (Auto) Baso % (Auto) Neut # (Auto) Lymph # (Auto) Sharp # (Auto) Eos # (Auto) Baso # (Auto) Immature Gran % Nucleated RBC % Immature Gran # Nucleated RBCs # Platelet Estimate Hypochromasia Microcytosis Morphology Comment Sodium Potassium Chloride Carbon Dioxide Anion Gap BUN Creatinine GFR Calculation BUN/Creatinine Ratio Glucose POC Glucose 285 H 187 H 322 H Calculated Osmolality Calcium 05/27/17 05/28/17 05/28/17 22:59 04:17 04:17 WBC 8.1 RBC 6.59 H Hgb 14.0 Hct 44.7 MCV 67.8 L MCH 21 L MCHC 31.3 L RDW 18.3 H Plt Count 181 Neut % (Auto) 64.9 Lymph % (Auto) 24.0 Sharp % (Auto) 9.3 Eos % (Auto) 1.2 Baso % (Auto) 0.2 Neut # (Auto) 5.3 Lymph # (Auto) 2.0 Sharp # (Auto) 0.8 Eos # (Auto) 0.1 Baso # (Auto) 0.0 Immature Gran % 0.4 Nucleated RBC % 0.0 Immature Gran # 0.03 Nucleated RBCs # 0.00 Platelet Estimate Normal Hypochromasia Slight Microcytosis Slight Morphology Comment Sodium 136 Potassium 4.1 Chloride 99 Carbon Dioxide 28 Anion Gap 13.1 BUN 28 H Creatinine 1.80 H GFR Calculation 83 BUN/Creatinine Ratio 15.00 Glucose 299 H POC Glucose 242 H Calculated Osmolality 288.0 Calcium 8.7 05/28/17 06:57 WBC RBC Hgb Hct MCV MCH MCHC RDW Plt Count Neut % (Auto) Lymph % (Auto) Sharp % (Auto) Eos % (Auto) Baso % (Auto) Neut # (Auto) Lymph # (Auto) Sharp # (Auto) Eos # (Auto) Baso # (Auto) Immature Gran % Nucleated RBC % Immature Gran # Nucleated RBCs # Platelet Estimate Hypochromasia Microcytosis Morphology Comment Sodium Potassium Chloride Carbon Dioxide Anion Gap BUN Creatinine GFR Calculation BUN/Creatinine Ratio Glucose POC Glucose 331 H Calculated Osmolality Calcium - EKG EKG results: interpreted by me, no acute changes I, Dontrell Tobin MD, personally performed the services described in this documentation, ascribed by Sola Melgar RN in my presence, and it is both accurate and complete .
--- NOTE | 2017-05-28 16:03 | Hospitalist Progress Note ---
Assessment and Plan (1) Acute on chronic systolic heart failure Status: Chronic Assessment and plan: Change lasix to po Cardiology assisting Current Visit: No (2) Essential hypertension Status: Acute Current Visit: No (3) Diabetes mellitus Status: Acute Current Visit: No (4) Noncompliance with medication regimen Status: Chronic Current Visit: Yes (5) Renal failure Status: Acute Current Visit: Yes (6) Cocaine abuse Status: Chronic Current Visit: Yes Hospitalist: Subjective Interval history: No acute events overnight. Patient reports that he feels better, his edema is improved. Creatinine is up a little today, will change lasix to po. Start basal insulin. Hope for discharge soon. Exam - Constitutional Vitals: Period Temp Pulse Resp BP Sys/Snyder Pulse Ox Last 24 Hr 97.6 F-98.3 F 79-88 18-20 127-154/68-89 96-98 General appearance: normal weight - Head Head exam: Present: normocephalic, atraumatic - Eye Eye exam: Present: EOMI Pupils: Present: ESTELA - ENT ENT exam: Present: normal exam - Neck Neck exam: Present: normal inspection - Respiratory Respiratory exam: Present: clear to auscultation bilaterally. Absent: rhonchi, wheezes - Cardiovascular Cardiovascular exam: Present: regular rate and rhythm - GI/Abdominal GI/Abdominal exam: Present: normal bowel sounds, soft. Absent: tenderness, rebound - Extremities Exam Extremities exam: Present: normal inspection - Back Exam Back exam: Present: normal inspection - Neurological Exam Neurological exam: Present: alert, oriented X3 - Psychiatric Psychiatric exam: Present: normal affect, normal mood - Skin Skin exam: Present: warm, intact Results - Labs CBC & BMP: 05/28/17 04:17 05/28/17 04:17
[2017-05-28] MEDS: FUROSEMIDE 20 MG TABLET PO SCH (17:24)
[2017-05-28] MEDS: INSULIN GLARGINE 100 UNIT/ML SUBCUT SCH (22:07)
[2017-05-29] MEDS: CYCLOBENZAPRINE 10 MG TABLET PO PRN ×2 (05:33→20:43)
[2017-05-29 06:13] LABS: Calcium 8.6 MG/DL (8.5-10.1); Magnesium 2.4 MG/DL (1.8-2.4); Osmolality,Calculated 287.7 MOS/KG (273-304); Potassium 4.3 MMOL/L (3.5-5.1)
[2017-05-29] MEDS: INSULIN LISPRO 100 UNIT/ML SUBCUT SCH ×4 (09:31→20:45)
[2017-05-29] MEDS: GLIMEPIRIDE 2 MG TABLET PO SCH (09:32)
[2017-05-29] MEDS: FUROSEMIDE 20 MG TABLET PO SCH ×2 (09:33→16:57)
[2017-05-29] MEDS: PANTOPRAZOLE 40 MG TABLET PO SCH (09:33)
[2017-05-29] MEDS: CARVEDILOL 12.5 MG TABLET PO SCH ×2 (09:33→20:43)
[2017-05-29] MEDS: LOSARTAN 50 MG TABLET PO SCH (09:33)
--- NOTE | 2017-05-29 16:24 | Hospitalist Progress Note ---
Assessment and Plan (1) Acute systolic CHF (congestive heart failure) Status: Acute Current Visit: Yes (2) Morbid obesity Status: Acute Assessment and plan: Encouraged the patient to be active as much as she can. However it appears activity as inside shortness of breath and that this waves almost sedentary. Current Visit: Yes (3) Diabetes mellitus type 2, uncontrolled Status: Acute Assessment and plan: Needs to attend to medication and wants carbohydrate loading. His blood sugars is high. I do not have an A1c on this admission that will be checked tomorrow alongside a BMP and magnesium. Current Visit: Yes (4) Hypertension Status: Acute Assessment and plan: Be compliant with anti-hypertensive med Current Visit: Yes Hospitalist: Subjective Interval history: Patient is seen interviewed and examined chart has been reviewed. I reviewed all the notes from the consult regarding his left ventricular dysfunction on the EF is explained estimated at 40% however the transthoracic pictures were not very good given to his body habitus. Gentleman who has abused himself. He is noncompliant with medication never follows up with physician's advice and appointments and he uses cocaine in the community. Is morbidly obese hypertensive uncontrolled diabetes mellitus. I will talk with the patient at length regarding substance use disorder i.e. use of cocaine and possibly other products he seems to be agreeing with the my advice. Commitment to step from here on is lacking however. I expect him to be recidivistic. He has no primary care attachment at this point. I will see if social service can direct him to an office. Exam - Constitutional Vitals: Period Temp Pulse Resp BP Sys/Snyder Pulse Ox Last 24 Hr 97.7 F-98.8 F 80-87 19-20 118-165/64-85 94-97 General appearance: no acute distress, morbidly obese - Head Head exam: Present: normocephalic, atraumatic - Eye Eye exam: Present: EOMI Pupils: Present: ESTELA - ENT ENT exam: Present: other - Respiratory Respiratory exam: Present: clear to auscultation bilaterally - Cardiovascular Cardiovascular exam: Present: regular rate and rhythm, other (However he gets short winded from the cerumen from chair to bed) - GI/Abdominal GI/Abdominal exam: Present: normal bowel sounds, soft - Extremities Exam Extremities exam: Present: full ROM - Back Exam Back exam: Present: normal inspection - Neurological Exam Neurological exam: Present: alert, oriented X3, CN II-XII intact - Skin Skin exam: Present: warm, other (Stasis dermatitis) Results - Labs CBC & BMP: 05/28/17 04:17 05/29/17 05:04 Lab Results: I have reviewed the past 24 hour labs
[2017-05-29] MEDS: MUPIROCIN 2% OINT 22 GM TUBE TOP SCH ×2 (16:43→20:44)
[2017-05-29] MEDS: INSULIN GLARGINE 100 UNIT/ML SUBCUT SCH (20:44)
[2017-05-30] MEDS: CARVEDILOL 12.5 MG TABLET PO SCH (09:01)
[2017-05-30] MEDS: LOSARTAN 50 MG TABLET PO SCH (09:01)
[2017-05-30] MEDS: FUROSEMIDE 20 MG TABLET PO SCH (09:01)
[2017-05-30] MEDS: GLIMEPIRIDE 2 MG TABLET PO SCH (09:01)
[2017-05-30] MEDS: PANTOPRAZOLE 40 MG TABLET PO SCH (09:01)
[2017-05-30] MEDS: MUPIROCIN 2% OINT 22 GM TUBE TOP SCH (09:02)
[2017-05-30] MEDS: INSULIN LISPRO 100 UNIT/ML SUBCUT SCH ×2 (09:02→11:57)
[2017-05-30 11:39] VITALS: BP 150/85
--- NOTE | 2017-05-30 13:21 | Discharge Summary ---
<Holli Mcconnell - Last Filed: 05/30/17 16:05> Hospital Course - Hospital Course Hospital Course: Mr. Padgett is a 46-year-old [place] morbidly obese male with a past medical history of known medical noncompliance, congestive heart failure, hypertension, diabetes, BETY, and cocaine abuse who presented to the ED on 05/26 with complaints of shortness of breath and lower extremity edema persisted for 2 weeks. It was noted that the patient had been recently seen in the ED twice in the last month when he was treated for similar problems and discharged from the ED with prescription for antihypertensive agents. Pt. was noted to have bilateral pitting edema in lower extremities as well as a draining wound. Chest x-ray showed evidence of CHF with some mild bilateral pulmonary edema and trace bilateral pleural effusion. Patient was admitted to the hospital medicine service for further evaluation and treatment. Pt. was diuresed with IV lasix. Echo was obtained and left ventricular function was estimated at 40%. Cardiology was consulted to assist in care. Diuresis continued. Chest pain and shortness of breath resolved. Electrolytes remained within an acceptable range. Patient's overall condition improved. He has reached maximal benefit of inpatient stay and will be discharged. Specialty Discharge - Follow Up or Referrals Discharge Plan - Discharge Data Disposition: Disch To Home/Self Care - Discharge Medications New Carvedilol [Coreg] 12.5 mg PO BID #60 tablet Losartan [Cozaar] 100 mg PO DAILY #30 tablet Continue Glimepiride [Amaryl] 2 mg PO DAILY W/BREAKFAST #30 tablet Furosemide Tab [Lasix Tab] 40 mg PO BID DIURETIC #60 tablet Glimepiride [Amaryl] 2 mg PO DAILY W/BREAKFAST #30 tablet amLODIPine [Norvasc] 10 mg PO QAM #30 tablet Furosemide Tab [Lasix Tab] 40 mg PO BID DIURETIC #60 tablet No Action Spironolactone 12.5 mg PO QAM #30 tablet - Follow Up or Referral - Forms/Instructions Instructions: Furosemide (By mouth), Amlodipine (By mouth), Losartan (By mouth) , Glimepiride (By mouth), Carvedilol (By mouth), Heart Failure (DC), Hypertension (DC) Exam - Constitutional Vitals: Period Temp Pulse Resp BP Sys/Snyder Pulse Ox Last 24 Hr 97.6 F-99.1 F 79-86 18-20 130-150/52-93 95-99 Discharge Results Labs on day of discharge: Labs from last 24 hours 05/30/17 05/30/17 05/29/17 10:31 07:26 19:05 POC Glucose 304 H 260 H 216 H 05/29/17 15:24 POC Glucose 380 H DS: Provider Date of admission: 05/26/17 11:22 Primary care physician: Artemio Pak MD Attending physician on admission: Canelo Tony MD Consults: 05/26/17 16:14 Consult to Pastoral Services [CONS] Routine Comment: Pastoral Screen: Request Punch Out Crew Member Visit Pastoral Screen Source of Request: Patient 05/27/17 09:16 Consult to Wound Care - [place] [CONS] Routine Reason for Wound Care: Wound Care Management 05/30/17 09:42 Consult to Physical Therapy [CONS] Routine Reason for Physical Therapy: Other Consult Comment: pt needs cane, his is slipping when ambulating Discharging clinician: Holli Mcconnell NP <Karla Jean Baptiste - Last Filed: 05/30/17 16:36> Hospital Course - Time spent with patient Time with patient DS: Greater than 30 minutes (35) Diagnosis - Discharge Diagnosis (1) Acute on chronic systolic heart failure Status: Chronic (2) Essential hypertension Status: Chronic (3) Diabetes mellitus Status: Chronic (4) Noncompliance with medication regimen Status: Chronic (5) Renal failure Status: Chronic (6) Cocaine abuse Status: Chronic Discharge Plan - Discharge Data Condition at Discharge: Stable Discharge Diet: diabetic diet, heart healthy Activity: increase activity as tolerated Hygiene: no restrictions Weight Bearing at Discharge: weight bear as tolerated Contact your physician if you experience:: fever over 101, Shortness of breath Exam - Constitutional General appearance: over weight - Head Head exam: Present: normocephalic, atraumatic - Eye Eye exam: Present: EOMI Pupils: Present: ESTELA - ENT ENT exam: Present: normal exam - Neck Neck exam: Present: normal inspection - Respiratory Respiratory exam: Present: clear to auscultation bilaterally. Absent: rhonchi, wheezes - Cardiovascular Cardiovascular exam: Present: regular rate and rhythm - GI/Abdominal GI/Abdominal exam: Present: normal bowel sounds, soft. Absent: tenderness, rebound - Extremities Exam Extremities exam: Present: normal inspection - Back Exam Back exam: Present: normal inspection - Neurological Exam Neurological exam: Present: alert, oriented X3 - Psychiatric Psychiatric exam: Present: normal affect, normal mood - Skin Skin exam: Present: warm, intact
== END 2017-05-30 14:41 | disposition home or self-care (01) | DRG 292 ==
LOC: N.ED 07:50 → SUATTDRO 11:22 → N.EDINP 11:22 → N.5E 14:47
PROVIDERS: ADMIT Internal Medicine Infectious Disease; ATTEND Internal Medicine

== ENCOUNTER 2017-07-28 12:04 | Inpatient (IN) ==
--- NOTE | 2017-07-28 13:22 | EKG Report ---
Stationary ECG Study [facility] Test Date: 07/28/2017 1:19:31 PM Pat Name: NELSON MONTANO Department: Room: Gender: M [employer] Designer: MIKAYLA : 1970 Requested by: Eriberto Hardwick Order Number: [id number] Reading MD: JUVENAL FERREIRA Intervals [place] Rate: 78 P: 51 NC: 162 QRS: 42 QRSD: 104 T: 227 QT: 404 QTc: 437 Interpretive Statements SINUS RHYTHM NONSPECIFIC T-WAVE ABNORMALITY Electronically Signed On 07-31-17 18:46:34 CDT by JUVENAL FERREIRA [email or web address]
[2017-07-28 13:42] LABS: Basophils % 0.3 % (0.0-0.8); Eosinophils # 0.1 10*3/uL (0.0-0.87); Eosinophils % 0.8 % (0.00-10.9); Hematocrit 42.8 VOL% (42.0-52.0); Hemoglobin 13.2 GM/DL (14.0-18.0); Immature Granulocytes % 0.3 %; Immature Granulocytes Absolute 0.02 #; Lymphocytes # 1.6 10*3/uL (1.4-4.0); Lymphocytes % 21.6 % (21.2-54.2); Mean Corpuscular HGB Conc 30.8 GM/DL (32-36); Mean Corpuscular Hemoglobin 21 PG (27-34); Mean Corpuscular Volume 69.5 FL (87-102); Mean Platelet Volume 10.7 FL (9.6-12.0); Monocytes # 0.6 10*3/uL (0.11-0.8); Monocytes % 7.5 % (1.7-12.7); Neutrophils # 5.3 10*3/uL (1.4-7.4); Neutrophils % 69.5 % (38.7-73.9); Platelet Count 209 T/CUMM (130-400); Red Blood Count 6.16 MC/CUMM (3.8-5.5); Red Cell Distribution Width 19.1 % (9.3-17.3); White Blood Count 7.6 T/CUMM (4-12)
[2017-07-28 14:14] LABS: Alanine Aminotransferase 30 U/L (16-61); Albumin 2.6 G/DL (3.4-5.0); Alkaline Phosphatase 91 U/L (45-117); Aspartate Amino Transferase 31 U/L (0-37); Bilirubin,Total < 0.39 MG/DL (0.2-1.0); Blood Urea Nitrogen 11 MG/DL (7-18); Calcium 8.8 MG/DL (8.5-10.1); Glucose 225 MG/DL (74-106); Osmolality,Calculated 286.3 MOS/KG (273-304); Sodium 141 MMOL/L (136-145); Total Protein 6.4 G/DL (6.4-8.3); Troponin I Only 0.036 NG/ML (0.00-0.045)
--- NOTE | 2017-07-28 14:26 | XRay Report ---
XR chest 1V portable Indication: Epigastric pain, dyspnea Comparison: Chest x-ray July 08, 2017 Technique: Frontal views of the chest Findings: Mild cardiomegaly. There is a nonspecific reticular pattern throughout the bilateral lungs suspicious for interstitial pulmonary edema, interstitial pneumonia, or other interstitial lung disease. Visualized osseous and surrounding soft tissue structures appear grossly unchanged. IMPRESSION: As above. PROCEDURE INTERPRETED AT [facility] DEPARTMENT OF RADIOLOGY Final Report Signed by: Dr Sammy Mckeon
[2017-07-28 14:45] LABS: Apearance,Urine CLEAR (Clear); Bilirubin,Urine Negative (Negative); Blood, Urine Small mg/dL (Negative); Glucose,Urine (UA) 150 mg/dL (Negative); Ketones,Urine Negative (Negative); Mucus,Urine Occasional /LPF (Occasional); Nitrite,Urine Negative (Negative); Protein,Urine >=500 MG/DL; RBC,Urine 2 /HPF (0-4); Squamous Epithelial Cell,Urine Occasional /HPF (0-10); Urine Color Straw (Yellow); Urine Specific Gravity 1.025 (1.001-1.035); Urine Urobilinogen < 2.0 EU/DL (0.2-1.0); WBC,Urine 1 /HPF (0-6)
--- NOTE | 2017-07-28 15:23 | CT Report ---
CT aortogram of the chest. Indication: CT angiogram of the chest. Indication: Chest pain, back pain, and shortness of breath. Axial images were obtained with sagittal and coronal 2-D reconstructions. 3-D reconstructions were also performed of the entire lung osman and aorta. 100 cc Omni 350. The thoracic aorta is of normal caliber. There is a small amount of calcific plaque present within the aortic knob. There is no evidence of aortic dissection. There is no mediastinal hematoma. There is coronary artery calcification. The heart is mildly enlarged. There is no evidence of pulmonary thromboembolism. There is no pleural effusion. There is no adenopathy. The thyroid gland is normal in size. Within the lung osman there are groundglass infiltrates bilaterally, which are nonspecific. These are more prominent in the lower lobes. Degenerative changes of the spinal column. Impression: 1. No evidence of pulmonary thromboembolism. No evidence of aortic aneurysm or dissection. 2. Groundglass infiltrates within the lung osman, worse in the bases, not specific. The CT exam was performed using one or more of the following dose reduction techniques: Automated exposure control, adjustment of the mA and/or kV according to patient size, or use of iterative reconstruction technique. PROCEDURE INTERPRETED AT [facility] DEPARTMENT OF RADIOLOGY Final Report Signed by: Dr. Heavenly Can
--- NOTE | 2017-07-28 15:27 | Emergency Department Note ---
Arrival - Arrival Chief Complaint: Abdominal / Flank Pain Stated Complaint: sob ED Nursing Triage Note: pt ambulatory to triage with c/o having abd pain with n/ v/d. pt states onset last night. Mode of Arrival: Wheelchair Source: Patient Time Seen by Provider: 07/28/17 12:59 - History of Present Illness HPI Narrative: 46 y/o obese male presents to the ER complaining of dyspnea, epigastric pain, and chest pain that radiates to his back. Symptoms started last night and have been constant. Also, complaining of orthopnea, nausea, vomiting, and lower ext swelling. Denies diaphoresis. States he has a history of CHF but has not seen Dr. Alex in a year or two. He is also currently out of his blood pressure medication. Past medical history significant for CHF, CAD, HTN, IDDM, Sleep apnea, GERD, appendectomy, cholecystectomy and RA. Onset (ago): day(s) (1) Consistency: constant Severity: mild Quality: aching Allergies/Adverse Reactions: Allergies Allergy/AdvReac Type Severity Reaction Status Date / Time No Known Allergies Allergy Verified 07/28/17 12:09 Home Medications: Home Medications Medication Instructions Recorded Confirmed Type Carvedilol [Coreg] 12.5 mg PO BID #60 tablet 05/30/17 07/28/17 Rx Furosemide Tab [Lasix Tab] 40 mg PO BID DIURETIC #60 tablet 05/30/17 07/28/17 Rx Glimepiride [Amaryl] 2 mg PO DAILY W/BREAKFAST #30 05/30/17 07/28/17 Rx tablet Losartan [Cozaar] 100 mg PO DAILY #30 tablet 05/30/17 07/28/17 Rx amLODIPine [Norvasc] 10 mg PO QAM #30 tablet 05/30/17 07/28/17 Rx Review of System - Review of System 12 point system: reviewed and no additional remarkable complaints except as stated - Review of System Cardiovascular: Present: chest pain, dyspnea on exertion, orthopnea, edema Gastrointestinal: Present: abdominal pain (epigastric ), nausea, vomiting Musculoskeletal: Present: back pain Medical,Surgical,& Family Hx - Medical History Cardio: History of: CHF, CAD, Hypertension Endocrine: History of: Diabetes Mellitus (IDDM), Diabetes Mellitus (NIDDM) Rheumatology: History of;: Rheumatoid Arthritis Respiratory: History of: Obstructive Sleep Apnea No history of: Asthma, Bronchitis, COPD, Intubation, Pulmonary Embolism, Pulmonary Hypertension, Pneumonia, Lung Cancer Gastrointestinal: History of: GERD No history of: Bowel Obstruction, Clostridium Difficile, Crohn's Disease, Diverticulitis/ Diverticulosis, Esophageal Varices, Gastrointestinal Bleed, Hemorrhoids, Hematochezia, Hepatitis, Liver Problems, Pancreatitis, Polyps, Ulcerative Colitis, Gastrointestinal Cancer Musculoskeletal: History of: Amputation (toe on left foot), Musculoskeletal Problems (osteoarthritis) Hematology: No history of: Blood Transfusion Reaction Other: History of: Miscellaneous Medical Problems (morbid obesity) No history of: Anesthesia Reactions, Anaphylaxis, Cancer, Eczema, HIV - Surgical History Cardiac Surgeries: Patient Denies: Cardiac Catheterization, Cardiac Surgery, Vascular Access Devices HEENT Surgeries: Patient denies: Tonsilectomy & Adenoidectomy Abdominal Surgeries: Surgical HX of: Abdominal Surgery, Appendectomy, Cholecystectomy, Hernia Repair Patient denies: Colonoscopy, Gastric Bypass Surgery, EGD, Splenectomy - Family History Family History: Reports;: Family Diabetes (MOTHER), Family Hypertension (MOTHER) - Social History Smoking Status: Never smoker Frequency of Alcohol Use: None Type of Drug Use: None Exam Vital Signs: Vital Signs Temperature 97.6 F 07/29/17 08:00 Pulse Rate 71 07/29/17 08:00 Respiratory Rate 20 07/29/17 08:00 Blood Pressure 185/94 07/29/17 08:00 O2 Sat by Pulse Oximetry 99 07/29/17 08:00 - General General appearance: alert, in no apparent distress, obese - ENT ENT exam: Present: normal exam, normal oropharynx, mucous membranes moist - Chest Chest inspection: Present: normal inspection - Respiratory Respiratory exam: Present: normal lung sounds bilaterally - Cardiovascular Cardiovascular exam: Present: regular rate, normal rhythm, normal heart sounds - Abdominal Exam Abdominal exam: Present: soft, tenderness (epigastric ), normal bowel sounds - Extremities Exam Extremities exam: Present: normal inspection, full ROM, pedal edema (1+; pedal pulse strong and equal bilaterally ) - Back Exam Back exam: Present: normal inspection - Neurological Exam Neurological exam: Present: alert, oriented X3, normal gait - Psychiatric Psychiatric exam: Present: normal affect, normal mood - Skin Skin exam: Present: warm, dry Course - Consultations Consultation #1: Hospitalist Time: 16:15 (will admit patient to the Hospitalist group ) Results - Labs CBC & BMP: 07/29/17 04:25 07/29/17 04:25 Lab Results: I have reviewed the patients labs Labs: BNP: 351 CKMB: 4.1 - EKG EKG results: interpreted by BRYAN, sinus rhythm - Diagnostic Findings Procedure: Chest x-ray: image reviewed by me, report reviewed by me (Mild cardiomegaly. There is a nonspecific reticular pattern), CT - chest: image reviewed by me, report reviewed by me (1. No evidence of pulmonary thromboembolism. No evidence of aortic dissection. 2. Groundglass opacities in lung bases ) Disposition Clinical Impression: Chest pain, Hypertension, Nausea & vomiting, Elevated serum creatinine Case discussed with: patient Disposition: Still a Patient Condition: Stable
[2017-07-28] MEDS ORDERED: ASPIRIN CHEW 81 MG TABLET PO STA (15:55)
[2017-07-28] MEDS ORDERED: NITROGLYCERIN SL 0.4 MG TABLET SL PRN (15:58)
[2017-07-28] MEDS ORDERED: ASPIRIN 325 MG TABLET ONE (16:01)
[2017-07-28] MEDS ORDERED: NITROGLYCERIN SL 0.4 MG TABLET SL ONE (16:04)
[2017-07-28] MEDS ORDERED: ASPIRIN CHEW 81 MG TABLET PO ONE (16:08)
[2017-07-28] MEDS ORDERED: diphenhydrAMINE CAP 25 MG CAPSULE PO PRN (16:20)
[2017-07-28] MEDS ORDERED: ONDANSETRON 4 MG/2 ML VIAL IV PRN (16:20)
[2017-07-28] MEDS ORDERED: PROMETHAZINE 25 MG/1 ML VIAL IM PRN (16:20)
[2017-07-28] MEDS ORDERED: ACETAMINOPHEN 325 MG TABLET PO PRN ×2 (16:20)
[2017-07-28] MEDS ORDERED: NICOTINE 21 MG/24 HR PATCH TRANSDERM PRN (16:20)
[2017-07-28] MEDS ORDERED: guaiFENesin/DM ER 600-30 MG TABLET PO PRN (16:20)
[2017-07-28] MEDS ORDERED: DOCUSATE SODIUM 100 MG CAPSULE PO PRN (16:20)
[2017-07-28] MEDS ORDERED: MORPHINE 2 MG/1 ML SYRINGE IV PRN (16:20)
[2017-07-28] MEDS ORDERED: ENOXAPARIN 30 MG/0.3 ML SYRINGE SUBCUT SCH (16:30)
[2017-07-28] MEDS ORDERED: hydrALAZINE 20 MG/1 ML VIAL IV PRN (16:30)
--- NOTE | 2017-07-28 16:43 | Hospitalist History & Physical ---
Assessment and Plan - Time spent with patient Time spent with patient: Greater than 30 minutes (1) Chest pain Status: Acute Assessment and plan: 46-year-old -Citizen Of [place] male with history of diabetes, hypertension, CHF, cocaine and alcohol abuse, and history of noncompliance admitted by the hospitalist service with shortness of breath and epigastric abdominal pain. Patient has been out of his medications reportedly for over a week and he does have hypertensive urgency. Will restart his medications of carvedilol and amlodipine and order some hydralazine as needed. We will continue to monitor this. Patient's blood sugars are over 200 so we will start sliding scale insulin on him and restart his home medications once verified. Will also check hemoglobin A1c. During exam patient was unsure if he still had a gallbladder and he was tender in his right upper quadrant and epigastric region. Went ahead and ordered a gallbladder ultrasound and the shampoo technician called and stated he does not have a gallbladder so this is not the source of his abdominal pain. His liver and pancreatic enzymes were both normal. Patient does have mildly elevated CPK and troponins but these are around his normal baseline for his last few admissions. Will do serial EKG and troponins to rule out [place]. His creatinine is 1.4 which is his baseline as well. Patient does have an expiratory wheeze at the left lung base so we will start some duo nebs and add Lasix. Dr. Pak will see and examine patient and further recommendations to follow. Current Visit: Yes (2) Congestive heart failure Status: Acute Current Visit: No (3) Diabetes mellitus type 2, uncontrolled Status: Acute Current Visit: No (4) Hypertensive urgency Status: Acute Current Visit: No (5) Morbid obesity Status: Acute Current Visit: No (6) Cardiomyopathy Problem details: Etiology unknown, patient has not had cardiac catheterization. This is suspected to be related to uncontrolled hypertension, drug use and medication noncompliance. Status: Chronic Current Visit: No (7) Cocaine abuse Status: Chronic Current Visit: No (8) Noncompliance Status: Chronic Current Visit: No History of Present Illness Chief complaint: Abdominal pain and shortness of breath History of present illness: Mr. Padgett is a 46 year old obese -Citizen Of [place] male with history of noncompliance, diabetes, hypertension, cocaine and alcohol abuse, and CHF presenting to the ED with a 3 day history of worsening epigastric abdominal pain and shortness of breath. Patient states he went out to the [place] with some friends yesterday and he got extremely fatigued and short of breath. He states he has had epigastric abdominal pain that radiates around to the back that is worsened over the last few days. Patient thinks he still has his gallbladder. Patient stated at first that he has been taking his medications but then stated that he has been out for over a week. Patient does have a history of noncompliance with his medications and he does not see a regular doctor. Patient denies any cocaine abuse at this time and his urine drug screen is pending. Patient's blood pressure is elevated at 185/103, creatinine is 1.4 but this is his baseline, blood sugars in the low 200s, CK is elevated at 4.1 and troponins 0.036 but this is actually lower than his baseline. BNP is mildly elevated at 351, liver and pancreatic enzymes are normal. CTA is negative for pulmonary embolism, chest x-ray shows interstitial pulmonary edema , interstitial pneumonia or other interstitial lung disease. Patient has an echocardiogram done in May that shows an EF of 40%. Upon exam patient does not have conversational dyspnea and he is obese. He has 3+ pitting edema bilateral lower extremities with some mild skin irritation. He is noted to have poor hygiene. After discussion with Alexis Hardwick NP and Dr. Pak the admitting hospitalist, it was agreed patient be admitted for further evaluation and treatment. Patient's medicines will be reconciled once they have been verified in the system and he is a full code. Home Medications Medication Instructions Recorded Confirmed Type Spironolactone 12.5 mg PO QAM #30 tablet 03/28/17 05/26/17 Rx Carvedilol [Coreg] 12.5 mg PO BID #60 tablet 05/30/17 Rx Furosemide Tab [Lasix Tab] 40 mg PO BID DIURETIC #60 tablet 05/30/17 Rx Glimepiride [Amaryl] 2 mg PO DAILY W/BREAKFAST #30 05/30/17 Rx tablet Losartan [Cozaar] 100 mg PO DAILY #30 tablet 05/30/17 Rx amLODIPine [Norvasc] 10 mg PO QAM #30 tablet 05/30/17 Rx Azithromycin Tab [Zithromax Tab] 250 mg PO DAILY #6 tablet 07/08/17 Rx Allergies Allergy/AdvReac Type Severity Reaction Status Date / Time No Known Allergies Allergy Verified 07/28/17 12:09 Medical,Surgical,& Family Hx - Medical History Cardio: History of: CHF, CAD, Hypertension Endocrine: History of: Diabetes Mellitus (IDDM), Diabetes Mellitus (NIDDM) Rheumatology: History of;: Rheumatoid Arthritis Respiratory: History of: Obstructive Sleep Apnea No history of: Asthma, Bronchitis, COPD, Intubation, Pulmonary Embolism, Pulmonary Hypertension, Pneumonia, Lung Cancer Gastrointestinal: History of: GERD No history of: Bowel Obstruction, Clostridium Difficile, Crohn's Disease, Diverticulitis/ Diverticulosis, Esophageal Varices, Gastrointestinal Bleed, Hemorrhoids, Hematochezia, Hepatitis, Liver Problems, Pancreatitis, Polyps, Ulcerative Colitis, Gastrointestinal Cancer Musculoskeletal: History of: Amputation (toe on left foot), Musculoskeletal Problems (osteoarthritis) Hematology: No history of: Blood Transfusion Reaction Other: History of: Miscellaneous Medical Problems (morbid obesity) No history of: Anesthesia Reactions, Anaphylaxis, Cancer, Eczema, HIV - Surgical History Cardiac Surgeries: Patient Denies: Cardiac Catheterization, Cardiac Surgery, Vascular Access Devices HEENT Surgeries: Patient denies: Tonsilectomy & Adenoidectomy Abdominal Surgeries: Surgical HX of: Abdominal Surgery, Appendectomy, Cholecystectomy, Hernia Repair Patient denies: Colonoscopy, Gastric Bypass Surgery, EGD, Splenectomy - Family History Family History: Reports;: Family Diabetes (MOTHER), Family Hypertension (MOTHER) - Social History Smoking Status: Never smoker Frequency of Alcohol Use: Frequently Type of Drug Use: Cocaine Marital Status: Single Lives With:: Alone 12 point system: reviewed and no additional remarkable complaints except as stated Exam - Constitutional Vitals: Period Temp Pulse Resp BP Sys/Snyder Pulse Ox Last 24 Hr 98.4 F-98.4 F 79-89 17-18 171-188/101-108 97 Exam: Constitutional System: No distress. No tremulousness. Head: Normocephalic, atraumatic. Ears, Nose and Throat System: No evidence of Otitis or Mastoiditis. No epistaxis or discharge, poor dentition Eyes System: Pupils equal, round, and reactive. Extraocular muscles intact. Neck: Supple, without adenopathy, No jugular venous distention. No thyromegaly, neck mass, or prior surgery apparent. Respiratory System: Chest mild expiratory wheeze in the left lung base to auscultation. Cardiovascular System: Heart with regular rate and rhythm. 1/6 murmur. GI System: Abdomen soft, mildly tender in right upper quadrant and epigastric region. Normo active bowel sounds present. Musculoskeletal System: limbs with 3+ pitting pedal edema to the shins. Diminished distal pulses with Doppler. There caked on bottom of feet and ankles , poor toenail hygiene, some open wounds circumferentially on left lower leg Neurological System: No discernable sensory deficit. No aphasia Psychiatric System: Conversation is rational Results - Labs CBC & BMP: 07/28/17 13:28 07/28/17 13:28 Lab Results: I have reviewed the past 24 hour labs - EKG EKG results: sinus rhythm EKG shows: sinus rhythm - Diagnostic Findings Procedure: Chest x-ray: report reviewed by me (Nonspecific reticular pattern throughout the bilateral lungs suspicious for interstitial pulmonary edema, interstitial pneumonia or other interstitial lung disease), CT - chest: report reviewed by me (No evidence of pulmonary thromboembolism, aortic aneurysm or dissection, groundglass infiltrates within the lung osman worse in the base) Quality Measures - VTE Contraindication to Mechanical VTE Prophylaxis: Ischemic Vascular Disease
[2017-07-28] MEDS ORDERED: GLUCAGON 1 MG VIAL IM PRN (16:50)
[2017-07-28] MEDS ORDERED: DEXTROSE 50% 25 GM/50 ML SYRINGE IV PRN (16:50)
[2017-07-28 16:57] LABS: Risk Ratio 3.54; Thyroid Stimulating Hormone 2.47 uIU/ml (0.358-3.74); VLDL CHOLESTEROL 19.2 MG/DL
--- NOTE | 2017-07-28 17:05 | Ultrasound Report ---
Bilateral lower extremity venous Doppler with bee scale, Spectral Doppler and color-flow analysis performed and interpreted. Indication: Shortness of breath Scanning over both common femoral veins, superficial femoral veins, greater saphenous veins and popliteal veins demonstrates normal compressibility, color flow, and augmentation. Impression: No evidence of DVT seen in either lower extremity. The Ultrasound images were captured and stored. PROCEDURE INTERPRETED AT [facility] OF [facility] Final Report Signed by: Dr. Heavenly Can
[2017-07-28 17:16] LABS: Barbiturates Screen,Urine Negative (Negative); Benzodiazepines Screen,Urine Negative (Negative); Cannabinoid Screen,Urine Negative (Negative); Opiate Screen,Urine Negative (Negative); Phencyclidine Screen,Urine Negative (Negative)
--- NOTE | 2017-07-28 17:29 | Ultrasound Report ---
Abdomen ultrasound complete. Indication: Right upper quadrant abdominal pain. The liver is enlarged with a length of 22 cm. No focal liver lesions can be identified. The gallbladder has been removed. The common duct measures 6 mm. The pancreas is obscured by bowel gas. The IVC and aorta are obscured by bowel gas. The spleen is normal in size. The kidneys are normal in size, parenchymal echogenicity and contour without focal lesion or hydronephrosis. Impression: Enlarged liver. The Ultrasound images were captured and stored. PROCEDURE INTERPRETED AT [facility] DEPARTMENT OF RADIOLOGY Final Report Signed by: Dr. Heavenly Can
[2017-07-28] MEDS: ALBUTEROL/IPRATROPIUM 3 ML NEB RESP TX SCH ×2 (19:34→23:57)
[2017-07-28] MEDS: PANTOPRAZOLE 40 MG TABLET PO SCH (21:30)
[2017-07-28] MEDS: FUROSEMIDE 40 MG/4 ML VIAL IV SCH (21:30)
[2017-07-28] MEDS: CARVEDILOL 12.5 MG TABLET PO SCH (21:31)
[2017-07-29] LABS: Troponin I Only 0.045 NG/ML (0.00-0.045)
[2017-07-29] MEDS: INSULIN LISPRO 100 UNIT/ML SUBCUT SCH ×4 (02:52→18:35)
[2017-07-29] MEDS: ALBUTEROL/IPRATROPIUM 3 ML NEB RESP TX SCH ×6 (04:00→23:59)
[2017-07-29 05:22] LABS: Basophils % 0.2 % (0.0-0.8); Eosinophils # 0.1 10*3/uL (0.0-0.87); Eosinophils % 0.8 % (0.00-10.9); Hemoglobin 12.4 GM/DL (14.0-18.0); Immature Granulocytes % 0.4 %; Immature Granulocytes Absolute 0.04 #; Lymphocytes # 1.5 10*3/uL (1.4-4.0); Lymphocytes % 16.4 % (21.2-54.2); Mean Corpuscular HGB Conc 31.8 GM/DL (32-36); Mean Corpuscular Hemoglobin 22 PG (27-34); Mean Corpuscular Volume 68.7 FL (87-102); Monocytes # 0.7 10*3/uL (0.11-0.8); Monocytes % 7.2 % (1.7-12.7); Neutrophils # 6.8 10*3/uL (1.4-7.4); Platelet Count 186 T/CUMM (130-400); Red Blood Count 5.68 MC/CUMM (3.8-5.5); Red Cell Distribution Width 18.9 % (9.3-17.3); White Blood Count 9.1 T/CUMM (4-12)
[2017-07-29 05:45] LABS: Hypochromasia 1+; Microcytosis 1+; Ovalocytes Slight
[2017-07-29 05:46] LABS: Platelet Estimate Adequate
[2017-07-29 06:04] LABS: Alanine Aminotransferase 22 U/L (16-61); Albumin 2.3 G/DL (3.4-5.0); Alkaline Phosphatase 82 U/L (45-117); Aspartate Amino Transferase 17 U/L (0-37); Bilirubin,Total < 0.39 MG/DL (0.2-1.0); Blood Urea Nitrogen 12 MG/DL (7-18); Calcium 8.8 MG/DL (8.5-10.1); Glucose 264 MG/DL (74-106); Magnesium 2.1 MG/DL (1.8-2.4); Osmolality,Calculated 285.5 MOS/KG (273-304); Potassium 4.3 MMOL/L (3.5-5.1); Sodium 139 MMOL/L (136-145); Total Protein 5.6 G/DL (6.4-8.3)
--- NOTE | 2017-07-29 09:02 | XRay Report ---
Exam: XR chest 2V Indication: Shortness of breath Comparison study: 07/28/2017 Findings: Similar cardiomegaly. There is been slight decrease in diffuse interstitial opacities throughout the lungs suggesting resolving pulmonary edema or infiltrates. There is no focal consolidation. There is no pneumothorax or pleural effusion. Osseous structures are stable. Impression: Similar cardiomegaly with suggestion of resolving interstitial edema. PROCEDURE INTERPRETED AT [facility] DEPARTMENT OF RADIOLOGY Final Report Signed by: Curtis Vogt
[2017-07-29] MEDS: FUROSEMIDE 40 MG/4 ML VIAL IV SCH ×3 (10:38→16:36)
--- NOTE | 2017-07-29 12:25 | Cardiology Consult Note ---
Assessment and Plan - Time spent with patient Time spent with patient: Greater than 30 minutes (1) Obstructive sleep apnea Status: Chronic Assessment and plan: SEE PLAN OF CARE LISTED BELOW Current Visit: Yes (2) Chest pain Status: Acute Assessment and plan: SEE PLAN OF CARE LISTED BELOW Current Visit: No Qualifiers: Qualified Code(s): R07.9 - Chest pain, unspecified (3) Morbid obesity Status: Chronic Assessment and plan: SEE PLAN OF CARE LISTED BELOW Current Visit: No (4) Noncompliance Status: Chronic Assessment and plan: SEE PLAN OF CARE LISTED BELOW Current Visit: No (5) Cocaine abuse Status: Chronic Assessment and plan: SEE PLAN OF CARE LISTED BELOW Current Visit: No (6) Cardiomyopathy Problem details: Etiology unknown, patient has not had cardiac catheterization. This is suspected to be related to uncontrolled hypertension, drug use and medication noncompliance. Status: Chronic Assessment and plan: SEE PLAN OF CARE LISTED BELOW Current Visit: No Qualifiers: Cardiomyopathy type: unspecified Qualified Code(s): I42.9 - Cardiomyopathy , unspecified (7) Hypertensive urgency Status: Acute Assessment and plan: SEE PLAN OF CARE LISTED BELOW Current Visit: No (8) Diabetes mellitus Status: Chronic Assessment and plan: SEE PLAN OF CARE LISTED BELOW Current Visit: No (9) Acute congestive heart failure Status: Acute Assessment and plan: SEE PLAN OF CARE LISTED BELOW Current Visit: No Qualifiers: Congestive heart failure type: combined Qualified Code(s): I50.41 - Acute combined systolic (congestive) and diastolic (congestive) heart failure History of Present Illness - Data of Consult Patient: known to practice within the last 3 years Consult date: 07/29/17 Requesting Physician: Artemio Pak - Consult Narrative Reason for consult: Chest pain History of present illness: [employer]: DR. LANCE (has never followed up in clinic) Mr. Padgett, 46BM, has risk factors significant for hypertension, cocaine use, diabetes, noncompliance, morbid obesity, and sedentary lifestyle. History of cardiomyopathy, obstructive sleep apnea and GERD. Patient has never undergone cardiac catheterization due to continued noncompliance and illicit drug abuse therefore it is difficult to classify his cardiomyopathy. Last echocardiogram May 26, 2017 revealed EF 40%, moderate concentric LVH, moderate diastolic dysfunction, PAP of 48 mmHg. Approximately 1 week ago, patient began to experience worsening swelling of his lower extremities and shortness of breath. Because the breathing became intense , he was orthopneic he felt as if he should be evaluated in the emergency department. Blood pressure was noted to be 218/133 on admission. He had been out of his medications for approximately 1-2 weeks. Reported complaints of chest pain located in the epigastric area and is reproducible to light palpation. Walking does not re-create the chest discomfort. Cardiac biomarkers negative, EKG does not reveal acute TX. CT chest negative for pulmonary embolism. Chest x-ray reveals interstitial pulmonary edema, interstitial pneumonia or other interstitial lung disease. Blood pressure remains suboptimally controlled. At this time going to increase his Coreg with a "now" dose. Increasing Lasix from 40 mg IV twice daily to 80 mg IV twice daily. Encourage daily weights and strict I&O. Patient is not on MICH inhibitor at this time as in the past MICH inhibitor has worsened his renal insufficiency therefore will avoid at this time. Add PPI to home medication regimen. He does not take at home. No need to repeat echocardiogram at this time as we have a recent report on file. Again, reiterated the importance of the cessation of illicit drug abuse. Patient reports he is trying to get disability at this time and will be more compliant with follow-up in the future. Should the patient become more compliant in the future, consider cardiac catheterization. Will further discuss with Dr. Nino and await additional recommendations. IMPRESSION/PLAN: 1. ACUTE ON CHRONIC CHF -secondary to systolic dysfunction (EF 40%) and diastolic dysfunction. NYHA Class III. Restart diuretics, strict I&O and daily weights. Beta-blockade continues. Unable to incorporate MICH inhibitor at this time for fear possibly worsening renal insufficiency which occurred during last admission when we use an MICH inhibitor. Due to the patient's history of noncompliance certainly would not be a candidate for Hydralazine TID 2. CHEST PAIN -chest pain seems to be epigastric in nature and reproducible to light palpation. Will start PPI. This was not part of his home medications and will encourage him to take this at discharge as well. Certainly, chest discomfort may be related to his uncontrolled hypertension, cocaine use. Cardiac biomarkers remain negative, EKG is stable. This is not acute TX. 3. CARDIOMYOPATHY - unable to determine if this is ischemic versus nonischemic cardiomyopathy. Patient has never undergone cardiac catheterization due to his history of noncompliance. Last EF 40%. No need to repeat echocardiogram during this hospitalization. 4. HYPERTENSIVE URGENCY - better controlled yet still suboptimal. Adjusting medications for better control today 5. MORBID OBESITY - reinforced importance of weight loss 6. DIABETES - continue sliding scale insulin to ensure good control of blood glucose levels. 7. NONCOMPLIANCE - patient is continued to demonstrate noncompliance with medication use, illicit drug cessation and outpatient follow-up. Again, reinforced the importance of compliance 8. METHAMPHETAMINE USE - greater than 5 minutes was spent today discussing the merits of cessation of illicit drug use. 9. OBSTRUCTIVE SLEEP APNEA - patient has been noncompliant with follow-up regarding his obstructive sleep apnea. Patient tells me he wants to secure his disability or Medicaid benefits he will consider being retested. Will not consult sleep medicine at this time. CC: Artemio Pak MD - Home Medications and Allergies Home Medications: Home Medications Medication Instructions Recorded Confirmed Type Carvedilol [Coreg] 12.5 mg PO BID #60 tablet 05/30/17 07/28/17 Rx Furosemide Tab [Lasix Tab] 40 mg PO BID DIURETIC #60 tablet 05/30/17 07/28/17 Rx Glimepiride [Amaryl] 2 mg PO DAILY W/BREAKFAST #30 05/30/17 07/28/17 Rx tablet Losartan [Cozaar] 100 mg PO DAILY #30 tablet 05/30/17 07/28/17 Rx amLODIPine [Norvasc] 10 mg PO QAM #30 tablet 05/30/17 07/28/17 Rx Allergies/Adverse Reactions: Allergies Allergy/AdvReac Type Severity Reaction Status Date / Time No Known Allergies Allergy Verified 07/28/17 12:09 Review of systems: REVIEW OF SYSTEMS: - Constitutional Constitutional: Present: Fatigue. Absent: syncope, anorexia, night sweats - EENT Eyes: Absent: blurry vision, loss of vision, diplopia Ears: Absent: decreased hearing, ear pain, ear discharge - Cardiovascular Cardiovascular: Denies: chest pain with exertion. Acknowledges dyspnea at rest , orthopnea and dyspnea on exertion, edema. Denies palpitations. Absent: chest pain with deep breath, claudication - Respiratory Respiratory: Present: JONES, cough. Absent: wheezing, hemoptysis, change in phlegm color - Gastrointestinal Gastrointestinal: Denies: constipation. Absent: abdominal pain, hematemesis, hematochezia, melena, change in bowel habits, nausea - Genitourinary Genitourinary: Absent: difficulty urinating, dysuria, urinary hesitancy, flank pain - Musculoskeletal Musculoskeletal: Present: back pain Absent: joint swelling, muscle cramps, muscle weakness - Neurological Neurological: Present: normal gait without frequent falls. Absent: dizziness, hemiparesis - Psychiatric Psychiatric: Absent: anxiety, depression, difficulty concentrating - Endocrine Endocrine: Absent: cold intolerance, heat intolerance, polyuria, polyphagia, polydipsia - Hematologic/Lymphatic Hematologic/Lymphatic: Present: easy bruising. Absent: easy bleeding -Integumentary Integumentary: Absent: lesions, rashes, skin breakdown other than the pea-size lesions located on the left garcia Medical,Surgical,& Family Hx - Medical History Cardio: History of: CHF, Hypertension No history of: Cardiac Dysrhythmia Endocrine: History of: Diabetes Mellitus (IDDM), Diabetes Mellitus (NIDDM) Rheumatology: History of;: Rheumatoid Arthritis Respiratory: History of: Obstructive Sleep Apnea No history of: Asthma, Bronchitis, COPD, Intubation, Pulmonary Embolism, Pulmonary Hypertension, Pneumonia, Lung Cancer Gastrointestinal: History of: GERD No history of: Bowel Obstruction, Clostridium Difficile, Crohn's Disease, Diverticulitis/ Diverticulosis, Esophageal Varices, Gastrointestinal Bleed, Hemorrhoids, Hematochezia, Hepatitis, Liver Problems, Pancreatitis, Polyps, Ulcerative Colitis, Gastrointestinal Cancer Musculoskeletal: History of: Amputation (toe on left foot), Musculoskeletal Problems (osteoarthritis) Hematology: No history of: Blood Transfusion Reaction Other: History of: Miscellaneous Medical Problems (morbid obesity) No history of: Anesthesia Reactions, Anaphylaxis, Cancer, Eczema, HIV - Surgical History Cardiac Surgeries: Patient Denies: Cardiac Catheterization, Cardiac Surgery, Vascular Access Devices HEENT Surgeries: Patient denies: Tonsilectomy & Adenoidectomy Abdominal Surgeries: Surgical HX of: Abdominal Surgery, Appendectomy, Cholecystectomy, Hernia Repair Patient denies: Colonoscopy, Gastric Bypass Surgery, EGD, Splenectomy - Family History Family History: Reports;: Family Diabetes (MOTHER), Family Hypertension (MOTHER) , Family Stroke (MOTHER) - Social History Smoking Status: Never smoker Frequency of Alcohol Use: Occasionally Type of Drug Use: Methamphetamine Functional capacity: independent ambulation Physical Examination Vital Signs Temp Pulse Resp BP Pulse Ox 98.4 F 89 17 188/101 97 07/28/17 12:06 07/28/17 12:06 07/28/17 12:06 07/28/17 12:06 07/28/17 12:06 Result/EKG - Labs CBC & BMP: 07/29/17 04:25 07/29/17 04:25 Labs: Laboratory Results - last 24 hr 07/28/17 07/28/17 07/28/17 13:18 13:18 13:28 WBC 7.6 RBC 6.16 H Hgb 13.2 L Hct 42.8 MCV 69.5 L MCH 21 L MCHC 30.8 L RDW 19.1 H Plt Count 209 MPV 10.7 Neut % (Auto) 69.5 Lymph % (Auto) 21.6 Cataño % (Auto) 7.5 Eos % (Auto) 0.8 Baso % (Auto) 0.3 Neut # (Auto) 5.3 Lymph # (Auto) 1.6 Cataño # (Auto) 0.6 Eos # (Auto) 0.1 Baso # (Auto) 0.0 Immature Gran % 0.3 Nucleated RBC % 0.0 Immature Gran # 0.02 Nucleated RBCs # 0.00 Platelet Estimate Immature Plt Fraction 0.0 Hypochromasia Microcytosis Ovalocytes Morphology Comment Sodium Potassium Chloride Carbon Dioxide Anion Gap BUN Creatinine GFR Calculation BUN/Creatinine Ratio Glucose POC Glucose Hemoglobin A1c 10.3 H Calculated Osmolality Calcium Magnesium Total Bilirubin AST ALT Alkaline Phosphatase Total Creatine Kinase CK-MB (CK-2) Troponin I B-Natriuretic Peptide Total Protein Albumin Globulin Albumin/Globulin Ratio Triglycerides 96 Cholesterol 177 LDL Cholesterol 113.0 VLDL Cholesterol 19.2 HDL Cholesterol 50 Heart Disease Risk Ratio 3.54 Lipase TSH 3rd Generation 2.470 Urine Color Urine Appearance Urine pH Ur Specific Jackson Urine Protein Urine Glucose (UA) Urine Ketones Urine Blood Urine Nitrate Urine Bilirubin Urine Urobilinogen Urine Leukocytes Urine RBC Urine WBC Ur Squamous Epith Cells Urine Mucus Ur Culture Indicated? Urine Opiates Screen Ur Barbiturates Screen Ur Phencyclidine Scrn U Amphetamine/Methamph U Benzodiazepines Scrn U Cocaine Metab Screen U Cannabinoids Screen 07/28/17 07/28/17 07/28/17 13:28 13:28 13:28 WBC RBC Hgb Hct MCV MCH MCHC RDW Plt Count MPV Neut % (Auto) Lymph % (Auto) Cata[place] % (Auto) Eos % (Auto) Baso % (Auto) Neut # (Auto) Lymph # (Auto) Cata[place] # (Auto) Eos # (Auto) Baso # (Auto) Immature Gran % Nucleated RBC % Immature Gran # Nucleated RBCs # Platelet Estimate Immature Plt Fraction Hypochromasia Microcytosis Ovalocytes Morphology Comment Sodium 141 Potassium 4.0 Chloride 108 H Carbon Dioxide 26 Anion Gap 11.0 BUN 11 Creatinine 1.40 H GFR Calculation 115 BUN/Creatinine Ratio 7.00 Glucose 225 H POC Glucose Hemoglobin A1c Calculated Osmolality 286.3 Calcium 8.8 Magnesium Total Bilirubin < 0.39 AST 31 ALT 30 Alkaline Phosphatase 91 Total Creatine Kinase 290 CK-MB (CK-2) 4.1 H Troponin I 0.036 B-Natriuretic Peptide 351 H Total Protein 6.4 Albumin 2.6 L Globulin 3.8 H Albumin/Globulin Ratio 0.6 L Triglycerides Cholesterol LDL Cholesterol VLDL Cholesterol HDL Cholesterol Heart Disease Risk Ratio Lipase 156.0 TSH 3rd Generation Urine Color Urine Appearance Urine pH Ur Specific Jackson Urine Protein Urine Glucose (UA) Urine Ketones Urine Blood Urine Nitrate Urine Bilirubin Urine Urobilinogen Urine Leukocytes Urine RBC Urine WBC Ur Squamous Epith Cells Urine Mucus Ur Culture Indicated? Urine Opiates Screen Ur Barbiturates Screen Ur Phencyclidine Scrn U Amphetamine/Methamph U Benzodiazepines Scrn U Cocaine Metab Screen U Cannabinoids Screen 07/28/17 07/28/17 07/28/17 13:28 13:28 19:03 WBC RBC Hgb Hct MCV MCH MCHC RDW Plt Count MPV Neut % (Auto) Lymph % (Auto) Cata[place] % (Auto) Eos % (Auto) Baso % (Auto) Neut # (Auto) Lymph # (Auto) Cata[place] # (Auto) Eos # (Auto) Baso # (Auto) Immature Gran % Nucleated RBC % Immature Gran # Nucleated RBCs # Platelet Estimate Immature Plt Fraction Hypochromasia Microcytosis Ovalocytes Morphology Comment Sodium Potassium Chloride Carbon Dioxide Anion Gap BUN Creatinine GFR Calculation BUN/Creatinine Ratio Glucose POC Glucose 168 H Hemoglobin A1c Calculated Osmolality Calcium Magnesium Total Bilirubin AST ALT Alkaline Phosphatase Total Creatine Kinase CK-MB (CK-2) Troponin I B-Natriuretic Peptide Total Protein Albumin Globulin Albumin/Globulin Ratio Triglycerides Cholesterol LDL Cholesterol VLDL Cholesterol HDL Cholesterol Heart Disease Risk Ratio Lipase TSH 3rd Generation Urine Color Straw Urine Appearance Clear Urine pH 6.0 Ur Specific Jackson 1.025 Urine Protein >=500 Urine Glucose (UA) 150 Urine Ketones Negative Urine Blood Small Urine Nitrate Negative Urine Bilirubin Negative Urine Urobilinogen < 2.0 H Urine Leukocytes Negative Urine RBC 2 Urine WBC 1 Ur Squamous Epith Cells Occasional Urine Mucus Occasional Ur Culture Indicated? Not indicated Urine Opiates Screen Negative Ur Barbiturates Screen Negative Ur Phencyclidine Scrn Negative U Amphetamine/Methamph Negative U Benzodiazepines Scrn Negative U Cocaine Metab Screen Positive H U Cannabinoids Screen Negative 07/28/17 07/28/17 07/29/17 21:34 23:11 04:25 WBC 9.1 RBC 5.68 H Hgb 12.4 L Hct 39.0 L MCV 68.7 L MCH 22 L MCHC 31.8 L RDW 18.9 H Plt Count 186 MPV Neut % (Auto) 75.0 H Lymph % (Auto) 16.4 L Cataño % (Auto) 7.2 Eos % (Auto) 0.8 Baso % (Auto) 0.2 Neut # (Auto) 6.8 Lymph # (Auto) 1.5 Cataño # (Auto) 0.7 Eos # (Auto) 0.1 Baso # (Auto) 0.0 Immature Gran % 0.4 Nucleated RBC % 0.0 Immature Gran # 0.04 Nucleated RBCs # 0.00 Platelet Estimate Adequate Immature Plt Fraction 0.0 Hypochromasia 1+ Microcytosis 1+ Ovalocytes Slight Morphology Comment Sodium Potassium Chloride Carbon Dioxide Anion Gap BUN Creatinine GFR Calculation BUN/Creatinine Ratio Glucose POC Glucose Hemoglobin A1c Calculated Osmolality Calcium Magnesium Total Bilirubin AST ALT Alkaline Phosphatase Total Creatine Kinase 232 268 CK-MB (CK-2) 3.4 3.8 H Troponin I 0.040 0.045 B-Natriuretic Peptide Total Protein Albumin Globulin Albumin/Globulin Ratio Triglycerides Cholesterol LDL Cholesterol VLDL Cholesterol HDL Cholesterol Heart Disease Risk Ratio Lipase TSH 3rd Generation Urine Color Urine Appearance Urine pH Ur Specific Jackson Urine Protein Urine Glucose (UA) Urine Ketones Urine Blood Urine Nitrate Urine Bilirubin Urine Urobilinogen Urine Leukocytes Urine RBC Urine WBC Ur Squamous Epith Cells Urine Mucus Ur Culture Indicated? Urine Opiates Screen Ur Barbiturates Screen Ur Phencyclidine Scrn U Amphetamine/Methamph U Benzodiazepines Scrn U Cocaine Metab Screen U Cannabinoids Screen 07/29/17 07/29/17 07/29/17 04:25 04:25 08:04 WBC RBC Hgb Hct MCV MCH MCHC RDW Plt Count MPV Neut % (Auto) Lymph % (Auto) Cata[place] % (Auto) Eos % (Auto) Baso % (Auto) Neut # (Auto) Lymph # (Auto) Cata[place] # (Auto) Eos # (Auto) Baso # (Auto) Immature Gran % Nucleated RBC % Immature Gran # Nucleated RBCs # Platelet Estimate Immature Plt Fraction Hypochromasia Microcytosis Ovalocytes Morphology Comment Sodium 139 Potassium 4.3 Chloride 106 Carbon Dioxide 26 Anion Gap 11.3 BUN 12 Creatinine 1.30 GFR Calculation 123 BUN/Creatinine Ratio 9.00 Glucose 264 H POC Glucose 228 H Hemoglobin A1c Calculated Osmolality 285.5 Calcium 8.8 Magnesium 2.1 Total Bilirubin < 0.39 AST 17 ALT 22 Alkaline Phosphatase 82 Total Creatine Kinase CK-MB (CK-2) Troponin I B-Natriuretic Peptide 488 H Total Protein 5.6 L Albumin 2.3 L Globulin 3.3 Albumin/Globulin Ratio 0.6 L Triglycerides Cholesterol LDL Cholesterol VLDL Cholesterol HDL Cholesterol Heart Disease Risk Ratio Lipase TSH 3rd Generation Urine Color Urine Appearance Urine pH Ur Specific Jackson Urine Protein Urine Glucose (UA) Urine Ketones Urine Blood Urine Nitrate Urine Bilirubin Urine Urobilinogen Urine Leukocytes Urine RBC Urine WBC Ur Squamous Epith Cells Urine Mucus Ur Culture Indicated? Urine Opiates Screen Ur Barbiturates Screen Ur Phencyclidine Scrn U Amphetamine/Methamph U Benzodiazepines Scrn U Cocaine Metab Screen U Cannabinoids Screen 07/29/17 11:29 WBC RBC Hgb Hct MCV MCH MCHC RDW Plt Count MPV Neut % (Auto) Lymph % (Auto) Cata[place] % (Auto) Eos % (Auto) Baso % (Auto) Neut # (Auto) Lymph # (Auto) [place] # (Auto) Eos # (Auto) Baso # (Auto) Immature Gran % Nucleated RBC % Immature Gran # Nucleated RBCs # Platelet Estimate Immature Plt Fraction Hypochromasia Microcytosis Ovalocytes Morphology Comment Sodium Potassium Chloride Carbon Dioxide Anion Gap BUN Creatinine GFR Calculation BUN/Creatinine Ratio Glucose POC Glucose 227 H Hemoglobin A1c Calculated Osmolality Calcium Magnesium Total Bilirubin AST ALT Alkaline Phosphatase Total Creatine Kinase CK-MB (CK-2) Troponin I B-Natriuretic Peptide Total Protein Albumin Globulin Albumin/Globulin Ratio Triglycerides Cholesterol LDL Cholesterol VLDL Cholesterol HDL Cholesterol Heart Disease Risk Ratio Lipase TSH 3rd Generation Urine Color Urine Appearance Urine pH Ur Specific Jackson Urine Protein Urine Glucose (UA) Urine Ketones Urine Blood Urine Nitrate Urine Bilirubin Urine Urobilinogen Urine Leukocytes Urine RBC Urine WBC Ur Squamous Epith Cells Urine Mucus Ur Culture Indicated? Urine Opiates Screen Ur Barbiturates Screen Ur Phencyclidine Scrn U Amphetamine/Methamph U Benzodiazepines Scrn U Cocaine Metab Screen U Cannabinoids Screen Quality Measures - VTE Contraindication to Mechanical VTE Prophylaxis: Ischemic Vascular Disease
[2017-07-29] MEDS ORDERED: CARVEDILOL 6.25 MG TABLET PO ONE (12:34)
[2017-07-29] MEDS ORDERED: SKIN HEALING OINT (AQUAPHOR) 50 GM TUBE TOP PRN (12:42)
[2017-07-29] MEDS: CARVEDILOL 12.5 MG TABLET PO SCH (12:54)
[2017-07-29] MEDS: amLODIPine 5 MG TABLET PO SCH (12:57)
[2017-07-29] MEDS: PANTOPRAZOLE 40 MG TABLET PO SCH (12:57)
--- NOTE | 2017-07-29 13:03 | Hospitalist Progress Note ---
Assessment and Plan (1) Chest pain Status: Resolved Assessment and plan: The patient was admitted to the hospital with chest discomfort likely on account of cocaine abuse and hypertensive cardiomyopathy. The patient's blood pressure is improving with restarting his home regimen and applying sobriety. I anticipate the patient will be well enough to go home tomorrow. Current Visit: No Qualifiers: Qualified Code(s): R07.9 - Chest pain, unspecified (2) Cocaine abuse Status: Chronic Current Visit: No (3) Cardiomyopathy Problem details: Etiology unknown, patient has not had cardiac catheterization. This is suspected to be related to uncontrolled hypertension, drug use and medication noncompliance. Status: Chronic Current Visit: No (4) Hypertensive urgency Status: Acute Current Visit: No Hospitalist: Subjective Interval history: Mr. Snow feels better today. He has less shortness of breath. The patient does not complain of chest pain today. Exam - Constitutional Vitals: Period Temp Pulse Resp BP Sys/Snyder Pulse Ox Last 24 Hr 97.0 F-98 F 60-98 16-24 166-185/84-116 98-100 - Respiratory Respiratory exam: Present: clear to auscultation bilaterally - Cardiovascular Cardiovascular exam: Present: regular rate and rhythm - GI/Abdominal GI/Abdominal exam: Present: normal bowel sounds Results - Labs CBC & BMP: 07/29/17 04:25 07/29/17 04:25 Lab Results: I have reviewed the past 24 hour labs Quality Measures - VTE Contraindication to Mechanical VTE Prophylaxis: Ischemic Vascular Disease
[2017-07-29] MEDS ORDERED: ENOXAPARIN 40 MG/0.4 ML SYRINGE SUBCUT SCH (21:00)
[2017-07-29] MEDS: CARVEDILOL 25 MG TABLET PO SCH (21:13)
[2017-07-30] MEDS: ALBUTEROL/IPRATROPIUM 3 ML NEB RESP TX SCH ×3 (03:41→11:15)
[2017-07-30 05:02] LABS: Basophils % 0.1 % (0.0-0.8); Eosinophils # 0.1 10*3/uL (0.0-0.87); Eosinophils % 1.1 % (0.00-10.9); Hematocrit 40.8 VOL% (42.0-52.0); Hemoglobin 12.8 GM/DL (14.0-18.0); Immature Granulocytes % 0.3 %; Immature Granulocytes Absolute 0.02 #; Lymphocytes # 1.5 10*3/uL (1.4-4.0); Lymphocytes % 21.1 % (21.2-54.2); Mean Corpuscular HGB Conc 31.4 GM/DL (32-36); Mean Corpuscular Hemoglobin 22 PG (27-34); Mean Corpuscular Volume 68.7 FL (87-102); Monocytes # 0.8 10*3/uL (0.11-0.8); Monocytes % 10.6 % (1.7-12.7); Neutrophils # 4.7 10*3/uL (1.4-7.4); Neutrophils % 66.8 % (38.7-73.9); Platelet Count 196 T/CUMM (130-400); Red Blood Count 5.94 MC/CUMM (3.8-5.5); Red Cell Distribution Width 18.5 % (9.3-17.3); White Blood Count 7.1 T/CUMM (4-12)
[2017-07-30 05:24] LABS: Calcium 8.8 MG/DL (8.5-10.1); Magnesium 1.9 MG/DL (1.8-2.4); Osmolality,Calculated 287.4 MOS/KG (273-304); Potassium 3.9 MMOL/L (3.5-5.1)
[2017-07-30 05:34] LABS: Giant Platelets Few; Hypochromasia 1+; Platelet Estimate Normal
[2017-07-30 05:35] LABS: Microcytosis Slight; Ovalocytes Slight
[2017-07-30] MEDS: CARVEDILOL 25 MG TABLET PO SCH (08:58)
[2017-07-30] MEDS: INSULIN LISPRO 100 UNIT/ML SUBCUT SCH (08:58)
[2017-07-30] MEDS: amLODIPine 5 MG TABLET PO SCH (08:58)
[2017-07-30] MEDS: PANTOPRAZOLE 40 MG TABLET PO SCH (08:58)
[2017-07-30] MEDS: FUROSEMIDE 40 MG/4 ML VIAL IV SCH (08:59)
[2017-07-30] MEDS ORDERED: hydrALAZINE 25 MG TABLET PO SCH (09:56)
[2017-07-30] MEDS ORDERED: ISOSORBIDE DINITRATE 20 MG TABLET PO SCH (09:56)
--- NOTE | 2017-07-30 10:02 | Event Note ---
Mr. Padgett is improved a bit but has really reproducible epigastric tenderness just below the xiphoid process. He was admitted in May with similar presentation with hypertensive urgency BP over 200 with reproducible pain in his chest. He reports remote history of ulcer and GERD. I will hold Coreg for now until his cocaine is out of his system. Start isosorbide and hydralazine 3 times daily. He reportedly has had renal dysfunction with MICH inhibitors in the past so we will avoid that. I discussed with him at length his absolute need to stop all cocaine use to avoid dying or being severely disabled by the time he is 48 years old. He has mild cardiomyopathy as of May with EF 40% ( very difficult study) which was better than it was early 2015, when it was 15-20 %. Of note he has not kept any follow-up appointments with Dr. العراقي. I agree that he has acute on chronic systolic heart failure with class III symptoms caused by hypertension likely exacerbated by his recurrent cocaine use. Suspect BETY, but he does not want evaluation at this time. Uncontrolled diabetes is noted. Decreasing simple carbohydrates and weight loss will be very important for his future prognosis. However, in the short-term cessation of cocaine and medical compliance are the most important.
[2017-07-30 11:00] VITALS: BP 142/82
--- NOTE | 2017-07-30 11:07 | Cardiology Progress Note ---
Assessment and Plan - Time spent with patient Time spent with patient: Greater than 30 minutes Time spent discussing smoking cessation with patient: 3 to 10 minutes (1) Obstructive sleep apnea Status: Chronic Assessment and plan: SEE PLAN OF CARE LISTED BELOW Current Visit: Yes (2) Chest pain Status: Resolved Assessment and plan: SEE PLAN OF CARE LISTED BELOW Current Visit: No Qualifiers: Qualified Code(s): R07.9 - Chest pain, unspecified (3) Morbid obesity Status: Chronic Assessment and plan: SEE PLAN OF CARE LISTED BELOW Current Visit: Yes (4) Noncompliance Status: Chronic Assessment and plan: SEE PLAN OF CARE LISTED BELOW Current Visit: Yes (5) Cocaine abuse Status: Chronic Assessment and plan: SEE PLAN OF CARE LISTED BELOW Current Visit: Yes (6) Cardiomyopathy Problem details: Etiology unknown, patient has not had cardiac catheterization. This is suspected to be related to uncontrolled hypertension, drug use and medication noncompliance. Status: Chronic Assessment and plan: SEE PLAN OF CARE LISTED BELOW Current Visit: Yes Qualifiers: Cardiomyopathy type: unspecified Qualified Code(s): I42.9 - Cardiomyopathy , unspecified (7) Hypertensive urgency Status: Acute Assessment and plan: SEE PLAN OF CARE LISTED BELOW Current Visit: Yes (8) Diabetes mellitus Status: Chronic Assessment and plan: SEE PLAN OF CARE LISTED BELOW Current Visit: No (9) Acute congestive heart failure Status: Acute Assessment and plan: SEE PLAN OF CARE LISTED BELOW Current Visit: No Qualifiers: Congestive heart failure type: combined Qualified Code(s): I50.41 - Acute combined systolic (congestive) and diastolic (congestive) heart failure Cardiology - PN: Subj Interval history: MUSIC RESEARCHER: DR. LANCE (has never followed up in clinic) SUMMARY: Mr. Padgett, 46BM, has risk factors significant for hypertension, cocaine use, diabetes, noncompliance, morbid obesity, and sedentary lifestyle. History of cardiomyopathy, obstructive sleep apnea and GERD. Patient has never undergone cardiac catheterization due to continued noncompliance and illicit drug abuse therefore it is difficult to classify his cardiomyopathy. Last echocardiogram May 26, 2017 revealed EF 40% (previously 15-20%), moderate concentric LVH, moderate diastolic dysfunction, PAP of 48 mmHg. Patient admitted July 28, 2017 with shortness of breath and edema, diagnosed with acute on chronic CHF exacerbation. Blood pressure was uncontrolled on arrival as he had been out of his medications for several weeks. Patient had complaints of chest pain found to be reproducible in epigastric area. Cardiac biomarkers negative, EKG does not reveal acute NV. CT chest negative for pulmonary embolism. 2016: Patient sitting up in bedside chair. Reports he continues to improve, feels less edematous and is breathing better. Blood pressure adjustment in medications today include discontinuing Coreg until cocaine is out of his system. Isosorbide mononitrate and Hydralazine have been initiated. No significant change in his weight. Will clarify that daily weights are being obtained accurately. At this time continue with diuresing, daily monitoring of labs and vital signs. Further discuss with Dr. Nino and await additional recommendations. IMPRESSION/PLAN: 1. ACUTE ON CHRONIC CHF - secondary to systolic dysfunction (EF 40%) and diastolic dysfunction. NYHA Class III. Continue with diuresis, strict I&O and daily weights. Beta-blockade being held at this time due to his recent cocaine use. Using hydralazine and Imdur as we are unable to incorporate MICH inhibitor at this time for fear possibly worsening renal insufficiency. 2. CHEST PAIN - chest pain seems to be epigastric in nature and reproducible to light palpation, slightly improved. Continue PPI. This is not acute NV. 3. CARDIOMYOPATHY - unable to determine if this is ischemic versus nonischemic cardiomyopathy. Patient has never undergone cardiac catheterization due to his history of noncompliance. Last EF 40%. No need to repeat echocardiogram during this hospitalization. 4. HYPERTENSIVE URGENCY - better controlled yet still suboptimal. Adjusting medications for better control today 5. MORBID OBESITY - reinforced importance of weight loss 6. DIABETES - continue sliding scale insulin to ensure good control of blood glucose levels. 7. NONCOMPLIANCE - patient is continued to demonstrate noncompliance with medication use, illicit drug cessation and outpatient follow-up. Again, reinforced the importance of compliance 8. METHAMPHETAMINE USE - greater than 5 minutes was spent today discussing the merits of cessation of illicit drug use. 9. OBSTRUCTIVE SLEEP APNEA - patient has been noncompliant with follow-up regarding his obstructive sleep apnea. Patient tells me he wants to secure his disability or Medicaid benefits he will consider being retested. Will not consult sleep medicine at this time. Exam (Progress Note) - Constitutional Vitals: Period Temp Pulse Resp BP Sys/Snyder Pulse Ox Last 24 Hr 97.9 F-98.8 F 66-79 16-20 137-177/65-92 96-100 Exam: General: [Appears well with no apparent distress.] [Pleasant and cooperative. ] [Appears comfortable.] HEENT: [PERRL, poor dentition noted, normocephalic, atraumatic. Mucous membranes moist. No jaundice noted. Conjunctiva moist and clear, sclerae anicteric] Neck: Unable to assess for JVD due to habitus. No thyromegaly or lymphadenopathy noted. No carotid bruit appreciated Cardiac: [Regular rate and rhythm.] [No obvious murmur, rub or gallop.] Lungs: [Decreased sounds noted throughout without wheezing. Using oxygen intermittently. Abdomen: Soft, bowel sounds normoactive. Nontender and nondistended. No abdominal bruit or thrill noted. No masses noted. Musculoskeletal: No fluid collection. Decreased range of motion is noted. Extremities: No clubbing, cyanosis noted. [3+ edema bilateral lower extremities noted.] Upper extremity pulses 2+. Difficult to lower extremity palpate pulses through the edema. Capillary refill less than 3 seconds. Skin: No unusual lesions or rashes. No skin breakdown appreciated. Neuro: Awake, alert and oriented 3. Moves all extremities well without hemiparesis or paralysis. No essential tremor is appreciated. Result/EKG - Labs CBC & BMP: 07/30/17 04:00 07/30/17 04:00 Lab Results: I have reviewed the past 24 hour labs Labs: Laboratory Results - last 24 hr 07/29/17 07/29/17 07/29/17 11:29 16:29 20:16 WBC RBC Hgb Hct MCV MCH MCHC RDW Plt Count Neut % (Auto) Lymph % (Auto) Park % (Auto) Eos % (Auto) Baso % (Auto) Neut # (Auto) Lymph # (Auto) Park # (Auto) Eos # (Auto) Baso # (Auto) Immature Gran % Nucleated RBC % Immature Gran # Nucleated RBCs # Platelet Estimate Giant Platelets Immature Plt Fraction Hypochromasia Microcytosis Ovalocytes Sodium Potassium Chloride Carbon Dioxide Anion Gap BUN Creatinine GFR Calculation BUN/Creatinine Ratio Glucose POC Glucose 227 H 219 H 231 H Calculated Osmolality Calcium Magnesium 07/30/17 07/30/17 07/30/17 04:00 04:00 07:28 WBC 7.1 RBC 5.94 H Hgb 12.8 L Hct 40.8 L MCV 68.7 L MCH 22 L MCHC 31.4 L RDW 18.5 H Plt Count 196 Neut % (Auto) 66.8 Lymph % (Auto) 21.1 L Park % (Auto) 10.6 Eos % (Auto) 1.1 Baso % (Auto) 0.1 Neut # (Auto) 4.7 Lymph # (Auto) 1.5 Park # (Auto) 0.8 Eos # (Auto) 0.1 Baso # (Auto) 0.0 Immature Gran % 0.3 Nucleated RBC % 0.0 Immature Gran # 0.02 Nucleated RBCs # 0.00 Platelet Estimate Normal Giant Platelets Few Immature Plt Fraction 0.0 Hypochromasia 1+ Microcytosis Slight Ovalocytes Slight Sodium 140 Potassium 3.9 Chloride 102 Carbon Dioxide 30 Anion Gap 11.9 BUN 15 Creatinine 1.50 H GFR Calculation 103 BUN/Creatinine Ratio 10.00 Glucose 243 H POC Glucose 247 H Calculated Osmolality 287.4 Calcium 8.8 Magnesium 1.9 - Diagnostic Findings Procedure: Chest x-ray: report reviewed by me - EKG EKG results: interpreted by me EKG shows: sinus rhythm Quality Measures - VTE Contraindication to Mechanical VTE Prophylaxis: Ischemic Vascular Disease
--- NOTE | 2017-07-30 13:16 | Discharge Summary ---
Hospital Course - Hospital Course Hospital Course: The patient was admitted to the hospital with hypertensive emergency consistent with nonadherence to medical regimen as well as cocaine intoxication. The patient was initially admitted to telemetry monitoring and his antihypertensive regimen was restarted. The patient's blood pressure improved over the next 48 hours. The patient had cardiology evaluation and blood pressure medications were adjusted. The patient had previous renal failure while taking MICH inhibitor and therefore MICH or arm are contraindicated at the time of discharge. On the date of discharge, chest is clear and heart has regular rate and rhythm. Patient medications were reconciled upon admission, and again at the time of discharge. The patient was screened for tobacco use and found to be a occasional smoker. The patient was given 4 minutes of tobacco avoidance education. The patient's medical decsion maker is themself, and when asked, they asked to be Full code. Discharge Time was 34 minutes, including final examination, evaluation and planning, education, reconciliation of medications, writing prescriptions, coordinating care with child support case officer, and preparing discharge documentation. Diagnosis - Discharge Diagnosis (1) Cocaine abuse Status: Chronic (2) Cardiomyopathy Status: Chronic (3) Hypertensive urgency Status: Resolved Specialty Discharge - Follow Up or Referrals Discharge Plan - Discharge Data Disposition: Disch To Home/Self Care Condition at Discharge: Stable Discharge Diet: diabetic diet Activity: resume usual activities as tolerated - Discharge Medications New Furosemide Tab [Lasix Tab] 80 mg PO DAILY #60 tablet Isosorbide Dinitrate [Isordil] 20 mg PO BID #90 tablet Continue amLODIPine [Norvasc] 10 mg PO QAM #60 tablet Glimepiride [Amaryl] 2 mg PO DAILY W/BREAKFAST #60 tablet Carvedilol [Coreg] 12.5 mg PO BID #100 tablet Discontinued Losartan [Cozaar] 100 mg PO DAILY #30 tablet Furosemide Tab [Lasix Tab] 40 mg PO BID DIURETIC #60 tablet - Follow Up or Referral Follow Up: Your,PCP [Other] - Forms/Instructions Instructions: Heart Failure (DC), Cocaine Abuse (DC) Exam - Constitutional Vitals: Period Temp Pulse Resp BP Sys/Snyder Pulse Ox Last 24 Hr 97.7 F-98.8 F 66-79 16-20 137-177/65-92 96-100 Discharge Results Labs on day of discharge: Labs from last 24 hours 07/30/17 07/30/17 07/30/17 11:11 07:28 04:00 WBC RBC Hgb Hct MCV MCH MCHC RDW Plt Count Neut % (Auto) Lymph % (Auto) [place] % (Auto) Eos % (Auto) Baso % (Auto) Neut # (Auto) Lymph # (Auto) [place] # (Auto) Eos # (Auto) Baso # (Auto) Immature Gran % Nucleated RBC % Immature Gran # Nucleated RBCs # Platelet Estimate Giant Platelets Immature Plt Fraction Hypochromasia Microcytosis Ovalocytes Sodium 140 Potassium 3.9 Chloride 102 Carbon Dioxide 30 Anion Gap 11.9 BUN 15 Creatinine 1.50 H GFR Calculation 103 BUN/Creatinine Ratio 10.00 Glucose 243 H POC Glucose 198 H 247 H Calculated Osmolality 287.4 Calcium 8.8 Magnesium 1.9 07/30/17 07/29/17 07/29/17 04:00 20:16 16:29 WBC 7.1 RBC 5.94 H Hgb 12.8 L Hct 40.8 L MCV 68.7 L MCH 22 L MCHC 31.4 L RDW 18.5 H Plt Count 196 Neut % (Auto) 66.8 Lymph % (Auto) 21.1 L [place] % (Auto) 10.6 Eos % (Auto) 1.1 Baso % (Auto) 0.1 Neut # (Auto) 4.7 Lymph # (Auto) 1.5 [place] # (Auto) 0.8 Eos # (Auto) 0.1 Baso # (Auto) 0.0 Immature Gran % 0.3 Nucleated RBC % 0.0 Immature Gran # 0.02 Nucleated RBCs # 0.00 Platelet Estimate Normal Giant Platelets Few Immature Plt Fraction 0.0 Hypochromasia 1+ Microcytosis Slight Ovalocytes Slight Sodium Potassium Chloride Carbon Dioxide Anion Gap BUN Creatinine GFR Calculation BUN/Creatinine Ratio Glucose POC Glucose 231 H 219 H Calculated Osmolality Calcium Magnesium DS: Provider Date of admission: 07/28/17 15:59 Primary care physician: Artemio Pak MD Attending physician on admission: Artemio Pak MD Consults: 07/28/17 16:24 Consult to Wound Care - [place] [CONS] Routine Reason for Wound Care: Wound Care Management Consult Comment: BLE wounds 07/29/17 09:22 Consult to Physician [CONS] Routine Comment: chest pain Consulting Provider: Consult to Specialist Group: Cardiology Person Notified: Lionel Date Notified: 07/29/17 Time Notified: 09:10 Discharging clinician: Artemio Pak MD
== END 2017-07-30 14:08 | disposition home or self-care (01) | DRG 304 ==
LOC: N.ED 12:04 → N.EDINP 15:59 → N.TELEN 18:56
PROVIDERS: ADMIT Internal Medicine; ATTEND Internal Medicine

== ENCOUNTER 2017-11-06 09:40 | Inpatient (IN) ==
[2017-11-06 11:34] LABS: Basophils % 0.2 % (0.0-0.8); Eosinophils # 0.1 10*3/uL (0.0-0.87); Eosinophils % 0.7 % (0.00-10.9); Hematocrit 45.4 VOL% (42.0-52.0); Hemoglobin 13.9 GM/DL (14.0-18.0); Immature Granulocytes % 0.6 %; Immature Granulocytes Absolute 0.05 #; Lymphocytes # 1.4 10*3/uL (1.4-4.0); Lymphocytes % 16.4 % (21.2-54.2); Mean Corpuscular HGB Conc 30.6 GM/DL (32-36); Mean Corpuscular Hemoglobin 21 PG (27-34); Mean Corpuscular Volume 69.2 FL (87-102); Mean Platelet Volume 10.6 FL (9.6-12.0); Monocytes # 0.5 10*3/uL (0.11-0.8); Monocytes % 6.2 % (1.7-12.7); Neutrophils # 6.5 10*3/uL (1.4-7.4); Neutrophils % 75.9 % (38.7-73.9); Platelet Count 258 T/CUMM (130-400); Red Blood Count 6.56 MC/CUMM (3.8-5.5); Red Cell Distribution Width 18.4 % (9.3-17.3); White Blood Count 8.5 T/CUMM (4-12)
[2017-11-06 12:03] LABS: Alanine Aminotransferase 25 U/L (16-61); Albumin 2.5 G/DL (3.4-5.0); Alkaline Phosphatase 105 U/L (45-117); Aspartate Amino Transferase 14 U/L (0-37); Bilirubin,Total < 0.39 MG/DL (0.2-1.0); Blood Urea Nitrogen 34 MG/DL (7-18); Calcium 9.5 MG/DL (8.5-10.1); Glucose 322 MG/DL (74-106); Osmolality,Calculated 289.1 MOS/KG (273-304); Potassium 4.3 MMOL/L (3.5-5.1); Sodium 135 MMOL/L (136-145); Total Protein 7.8 G/DL (6.4-8.3)
[2017-11-06] MEDS ORDERED: ACETAMINOPHEN 325 MG TABLET PO PRN (13:13)
[2017-11-06] MEDS ORDERED: DEXTROSE 50% 25 GM/50 ML VIAL IV PRN (13:13)
[2017-11-06] MEDS ORDERED: GLUCAGON 1 MG VIAL IM PRN (13:13)
[2017-11-06] MEDS ORDERED: ceFAZolin 1,000 MG in SYRINGE 1 EACH IV STA (13:17)
[2017-11-06] MEDS ORDERED: cloNIDine 0.1 MG TABLET PO ONE (15:18)
[2017-11-06] MEDS: ceFAZolin 1,000 MG in SYRINGE 1 EACH IV SCH (16:42)
[2017-11-06] MEDS: INSULIN REGULAR 100 UNIT/ML SUBCUT SCH ×2 (16:42→21:58)
[2017-11-06] MEDS: ENOXAPARIN 40 MG/0.4 ML SYRINGE SUBCUT SCH (16:42)
[2017-11-06] MEDS ORDERED: hydrALAZINE 20 MG/1 ML VIAL IV ONE (18:23)
[2017-11-07] MEDS: ceFAZolin 1,000 MG in SYRINGE 1 EACH IV SCH ×4 (00:18→23:55)
[2017-11-07 05:54] LABS: Basophils % 0.3 % (0.0-0.8); Eosinophils # 0.1 10*3/uL (0.0-0.87); Hematocrit 44.4 VOL% (42.0-52.0); Hemoglobin 13.7 GM/DL (14.0-18.0); Immature Granulocytes % 0.5 %; Immature Granulocytes Absolute 0.05 #; Lymphocytes # 1.7 10*3/uL (1.4-4.0); Lymphocytes % 17.4 % (21.2-54.2); Mean Corpuscular HGB Conc 30.9 GM/DL (32-36); Mean Corpuscular Hemoglobin 21 PG (27-34); Mean Corpuscular Volume 68.3 FL (87-102); Mean Platelet Volume 11.6 FL (9.6-12.0); Monocytes # 0.7 10*3/uL (0.11-0.8); Monocytes % 7.6 % (1.7-12.7); Neutrophils # 7.1 10*3/uL (1.4-7.4); Neutrophils % 73.2 % (38.7-73.9); Platelet Count 252 T/CUMM (130-400); White Blood Count 9.7 T/CUMM (4-12)
[2017-11-07 06:15] LABS: Giant Platelets Few; Hypochromasia 1+; Microcytosis Slight; Ovalocytes Slight; Platelet Estimate Adequate
[2017-11-07] MEDS: INSULIN REGULAR 100 UNIT/ML SUBCUT SCH ×4 (08:50→21:14)
[2017-11-07] MEDS: ENOXAPARIN 40 MG/0.4 ML SYRINGE SUBCUT SCH (13:11)
[2017-11-07] MEDS ORDERED: SKIN HEALING OINT (AQUAPHOR) 50 GM TUBE TOP PRN (14:54)
[2017-11-07] MEDS: GABAPENTIN 100 MG CAPSULE PO SCH (21:13)
[2017-11-08 07:08] LABS: Calcium 8.8 MG/DL (8.5-10.1); Potassium 4.9 MMOL/L (3.5-5.1)
[2017-11-08 08:30] VITALS: BP 142/81
[2017-11-08] MEDS: INSULIN REGULAR 100 UNIT/ML SUBCUT SCH (09:14)
[2017-11-08] MEDS: GABAPENTIN 100 MG CAPSULE PO SCH (09:14)
[2017-11-08] MEDS: ceFAZolin 1,000 MG in SYRINGE 1 EACH IV SCH (09:14)
== END 2017-11-08 10:33 | disposition home or self-care (01) | DRG 603 ==
LOC: N.ED 09:40 → N.EDINP 12:48 → N.5E 16:17
PROVIDERS: ADMIT Internal Medicine Geriatric Medicine; ATTEND Internal Medicine Geriatric Medicine

== ENCOUNTER 2017-12-18 09:41 | Inpatient (IN) ==
[2017-12-18] MEDS ORDERED: FUROSEMIDE 100 MG/10 ML VIAL IV STA (10:43)
[2017-12-18] MEDS ORDERED: FUROSEMIDE 40 MG/4 ML VIAL ONE (11:09)
[2017-12-18 11:23] LABS: Basophils % 0.3 % (0.0-0.8); Eosinophils # 0.1 10*3/uL (0.0-0.87); Eosinophils % 0.6 % (0.00-10.9); Hematocrit 43.8 VOL% (42.0-52.0); Hemoglobin 13.3 GM/DL (14.0-18.0); Immature Granulocytes % 0.4 %; Immature Granulocytes Absolute 0.03 #; Lymphocytes # 1.2 10*3/uL (1.4-4.0); Lymphocytes % 15.4 % (21.2-54.2); Mean Corpuscular HGB Conc 30.4 GM/DL (32-36); Mean Corpuscular Hemoglobin 21 PG (27-34); Mean Corpuscular Volume 69.2 FL (87-102); Monocytes # 0.5 10*3/uL (0.11-0.8); Monocytes % 6.6 % (1.7-12.7); Neutrophils % 76.7 % (38.7-73.9); Platelet Count 203 T/CUMM (130-400); Red Blood Count 6.33 MC/CUMM (3.8-5.5); Red Cell Distribution Width 18.7 % (9.3-17.3); White Blood Count 7.8 T/CUMM (4-12)
[2017-12-18 11:51] LABS: Alanine Aminotransferase 18 U/L (16-61); Albumin 2.8 G/DL (3.4-5.0); Alkaline Phosphatase 89 U/L (45-117); Aspartate Amino Transferase 20 U/L (0-37); Bilirubin,Total < 0.39 MG/DL (0.2-1.0); Blood Urea Nitrogen 23 MG/DL (7-18); Glucose 291 MG/DL (74-106); Osmolality,Calculated 293.4 MOS/KG (273-304); Sodium 140 MMOL/L (136-145); Total Protein 6.8 G/DL (6.4-8.3); Troponin I Only 0.047 NG/ML (0.00-0.045)
[2017-12-18] MEDS ORDERED: ONDANSETRON 4 MG/2 ML VIAL IV PRN (13:11)
[2017-12-18] MEDS ORDERED: GLUCAGON 1 MG VIAL IM PRN ×2 (13:11→13:19)
[2017-12-18] MEDS ORDERED: ZALEPLON 5 MG CAPSULE PO PRN (13:11)
[2017-12-18] MEDS ORDERED: DEXTROSE 50% 25 GM/50 ML VIAL IV PRN ×2 (13:11→13:19)
[2017-12-18] MEDS ORDERED: BISACODYL 5 MG TABLET PO PRN (13:11)
[2017-12-18 13:51] LABS: ABG Base Excess -0.5 MMOL/L (-2.5-2.5); ABG Oxygen Saturation 96.4 % (95-100); ABG PCO2 34.6 MM HG (35-48); ABG PH 7.434 (7.35-7.45); ABG PO2 80.4 MM HG (80-95)
[2017-12-18 14:24] LABS: HIV Antigen/Antibody Result Nonreactive (Nonreactive)
[2017-12-18] MEDS ORDERED: GABAPENTIN 100 MG CAPSULE ONE (14:37)
[2017-12-18] MEDS: GABAPENTIN 100 MG CAPSULE PO SCH ×2 (14:39→22:26)
[2017-12-18 15:03] LABS: Apearance,Urine CLEAR (Clear); Bilirubin,Urine Negative (Negative); Blood, Urine Small mg/dL (Negative); Glucose,Urine (UA) 150 mg/dL (Negative); Ketones,Urine Negative (Negative); Mucus,Urine Occasional /LPF (Occasional); Nitrite,Urine Negative (Negative); Protein,Urine 100 MG/DL; RBC,Urine 1 /HPF (0-4); Urine Color Colorless (Yellow); Urine Specific Gravity 1.004 (1.001-1.035); Urine Urobilinogen < 2.0 EU/DL (0.2-1.0)
[2017-12-18] MEDS ORDERED: [UNRECOGNIZED DRUG - OTHER] TOP SCH (16:00)
[2017-12-18] MEDS ORDERED: UREA TOP SCH (16:00)
[2017-12-18] MEDS: INSULIN NPH 100 UNIT/ML SUBCUT SCH (17:34)
[2017-12-18] MEDS: INSULIN REGULAR 100 UNIT/ML SUBCUT SCH ×2 (17:35→23:37)
[2017-12-18 18:46] LABS: Total Protein 6.8 G/DL (6.4-8.3)
[2017-12-18] MEDS: LOSARTAN 25 MG TABLET PO SCH (18:49)
[2017-12-18] MEDS: AMMONIUM LACTATE 12% LOTION 240 ML BOTTLE TOP SCH ×2 (18:51→22:26)
[2017-12-18 19:38] LABS: Hepatitis A Ab IgM Result Negative (Negative); Hepatitis B Core IgM Quant 0.15 Index; Hepatitis B Core IgM Result Negative (Negative); Hepatitis B Surface Ag Quant 0.23 Index; Hepatitis B Surface Ag Result Negative (Negative); Hepatitis C Virus Ab Quant 0.15 Index; Hepatitis C Virus Ab Result Negative (Negative)
[2017-12-18] MEDS: ENOXAPARIN 40 MG/0.4 ML SYRINGE SUBCUT SCH (22:26)
[2017-12-19 08:47] LABS: Calcium 8.7 MG/DL (8.5-10.1); Osmolality,Calculated 289.4 MOS/KG (273-304)
[2017-12-19] MEDS: INSULIN REGULAR 100 UNIT/ML SUBCUT SCH ×4 (09:09→21:20)
[2017-12-19] MEDS: GABAPENTIN 100 MG CAPSULE PO SCH ×2 (09:09→21:20)
[2017-12-19] MEDS: INSULIN NPH 100 UNIT/ML SUBCUT SCH ×2 (09:09→17:04)
[2017-12-19] MEDS: LOSARTAN 25 MG TABLET PO SCH (09:10)
[2017-12-19] MEDS: AMMONIUM LACTATE 12% LOTION 240 ML BOTTLE TOP SCH ×2 (09:11→21:20)
[2017-12-19 10:07] LABS: Albumin (SPE) 3.1 G/DL (3.2-5.3); Albumin (SPE) Rel % 45.6 %; Alpha 1 (SPE) 0.3 G/DL (0.1-0.4); Alpha 1 (SPE) Rel % 3.8 %; Alpha 2 (SPE) Rel % 15.2 %; Beta (SPE) 0.9 G/DL (0.5-1.1); Beta (SPE) Rel % 13.6 %; Total Protein (Chem) 6.8 G/DL (6.4-8.3)
[2017-12-19 10:08] LABS: Gamma (SPE) 1.5 G/DL (0.7-1.7); Gamma (SPE) Rel % 21.8 %
[2017-12-19 10:10] LABS: 24 Hr Protein (Bench) 290 MG/24HR (0-149.1); Albumin (UPE) 203.6 MG/24H; Albumin (UPE) Rel % 70.2 %; Alpha 1 (UPE) 17.7 MG/24H; Alpha 1 (UPE) Rel % 6.1 %; Alpha 2 (UPE) 18.9 MG/24H; Alpha 2 (UPE) Rel % 6.5 %; Beta (UPE) 27.6 MG/24H; Beta (UPE) Rel % 9.5 %; Gamma (UPE) 22.3 MG/24H; Gamma (UPE) Rel % 7.7 %
[2017-12-19 12:06] LABS: Immuno Free Light Chain Kappa 5.43 MG/DL (0.33-1.94)
[2017-12-19 12:07] LABS: Immuno Free Light Chain Lambda 2.21 MG/DL (0.57-2.63); Immuno Free Light Chain Ratio 2.46 MG/DL (0.26-1.65)
[2017-12-19] MEDS ORDERED: LOSARTAN 25 MG TABLET PO SCH (17:03)
[2017-12-19] MEDS: ALFUZOSIN 10 MG TABLET PO SCH (19:02)
[2017-12-19] MEDS: ENOXAPARIN 40 MG/0.4 ML SYRINGE SUBCUT SCH (21:20)
[2017-12-19 22:06] LABS: Collection Time,Urine 24 HOURS; Total Protein 24 Hr Ur Result 10807 MG/24HR (0-149.1); Total Volume,Urine 2525 ML (400-2000)
[2017-12-20] MEDS: INSULIN REGULAR 100 UNIT/ML SUBCUT SCH ×4 (09:26→21:29)
[2017-12-20] MEDS: ALFUZOSIN 10 MG TABLET PO SCH (09:29)
[2017-12-20] MEDS: AMMONIUM LACTATE 12% LOTION 240 ML BOTTLE TOP SCH ×2 (09:29→20:52)
[2017-12-20] MEDS: GABAPENTIN 100 MG CAPSULE PO SCH (09:29)
[2017-12-20] MEDS: INSULIN NPH 100 UNIT/ML SUBCUT SCH ×2 (09:29→17:01)
[2017-12-20] MEDS: LOSARTAN 25 MG TABLET PO SCH (09:29)
[2017-12-20] MEDS: GABAPENTIN 300 MG CAPSULE PO SCH ×2 (17:02→20:52)
[2017-12-20 17:41] LABS: Myeloperoxidase Antibody < 0.2 U
[2017-12-20] MEDS: ENOXAPARIN 40 MG/0.4 ML SYRINGE SUBCUT SCH (20:52)
[2017-12-21 09:15] VITALS: BP 130/69
[2017-12-21] MEDS: INSULIN REGULAR 100 UNIT/ML SUBCUT SCH ×2 (09:31→12:43)
[2017-12-21] MEDS: INSULIN NPH 100 UNIT/ML SUBCUT SCH (09:31)
[2017-12-21] MEDS: GABAPENTIN 300 MG CAPSULE PO SCH (09:32)
[2017-12-21] MEDS: ALFUZOSIN 10 MG TABLET PO SCH (09:32)
[2017-12-21] MEDS: LOSARTAN 25 MG TABLET PO SCH (09:32)
[2017-12-21] MEDS: AMMONIUM LACTATE 12% LOTION 240 ML BOTTLE TOP SCH (09:32)
== END 2017-12-21 13:10 | disposition home or self-care (01) | DRG 291 ==
LOC: N.ED 09:41 → SUATTDRO 12:36 → N.EDINP 12:36 → N.TELES 15:53
PROVIDERS: ADMIT Internal Medicine Cardiovascular Disease; ATTEND Internal Medicine

== ENCOUNTER 2018-04-13 09:57 | Inpatient (IN) ==
[2018-04-13] MEDS ORDERED: ONDANSETRON 4 MG/2 ML VIAL IV STA (10:29)
[2018-04-13] MEDS ORDERED: ALBUTEROL/IPRATROPIUM 3 ML NEB RESP TX STA (10:29)
[2018-04-13] MEDS ORDERED: FUROSEMIDE 100 MG/10 ML VIAL IV STA (10:29)
[2018-04-13] MEDS ORDERED: MORPHINE 4 MG/1 ML VIAL IV STA (10:29)
[2018-04-13] MEDS ORDERED: NITROGLYCERIN 2% OINT 1 INCH/GM PACK TOP STA (10:29)
[2018-04-13 10:53] LABS: Basophils % 0.3 % (0.0-0.8); Eosinophils # 0.1 10*3/uL (0.0-0.87); Eosinophils % 0.7 % (0.00-10.9); Hematocrit 41.3 VOL% (42.0-52.0); Hemoglobin 12.6 GM/DL (14.0-18.0); Immature Granulocytes % 0.3 %; Immature Granulocytes Absolute 0.03 #; Lymphocytes # 1.3 10*3/uL (1.4-4.0); Lymphocytes % 14.8 % (21.2-54.2); Mean Corpuscular HGB Conc 30.5 GM/DL (32-36); Mean Corpuscular Hemoglobin 21 PG (27-34); Monocytes # 0.6 10*3/uL (0.11-0.8); Monocytes % 6.6 % (1.7-12.7); Neutrophils # 6.9 10*3/uL (1.4-7.4); Neutrophils % 77.3 % (38.7-73.9); Platelet Count 212 T/CUMM (130-400); Red Blood Count 6.07 MC/CUMM (3.8-5.5); Red Cell Distribution Width 21.1 % (9.3-17.3)
[2018-04-13 11:01] LABS: PT Patient Result 10.2 SECS
[2018-04-13 11:13] LABS: Alanine Aminotransferase 44 U/L (16-61); Albumin 2.4 G/DL (3.4-5.0); Alkaline Phosphatase 112 U/L (45-117); Aspartate Amino Transferase 31 U/L (0-37); Bilirubin,Total < 0.39 MG/DL (0.2-1.0); Blood Urea Nitrogen 25 MG/DL (7-18); Calcium 8.9 MG/DL (8.5-10.1); Glucose 260 MG/DL (74-106); Osmolality,Calculated 289.5 MOS/KG (273-304); Potassium 4.2 MMOL/L (3.5-5.1); Sodium 139 MMOL/L (136-145); Total Protein 7.3 G/DL (6.4-8.3)
[2018-04-13 11:28] LABS: Giant Platelets Few; Hypochromasia Slight; Platelet Estimate Adequate
[2018-04-13 11:29] LABS: Microcytosis Slight
[2018-04-13] MEDS ORDERED: DEXTROSE 50% 25 GM/50 ML VIAL IV PRN (12:33)
[2018-04-13] MEDS ORDERED: GLUCAGON 1 MG VIAL IM PRN (12:33)
[2018-04-13] MEDS ORDERED: ONDANSETRON 4 MG/2 ML VIAL IV PRN (12:33)
[2018-04-13] MEDS ORDERED: ACETAMINOPHEN 325 MG TABLET PO PRN (12:33)
[2018-04-13] MEDS: GABAPENTIN 300 MG CAPSULE PO SCH ×2 (14:40→21:19)
[2018-04-13] MEDS: LEVOFLOXACIN INJ 500 MG in PREMIX 1 EACH IV SCH (14:50)
[2018-04-13] MEDS: ENOXAPARIN 40 MG/0.4 ML SYRINGE SUBCUT SCH (14:53)
[2018-04-13 15:02] LABS: Apearance,Urine CLEAR (Clear); Bacteria,Urine Occasional /HPF (Few); Bilirubin,Urine Negative (Negative); Blood, Urine Small mg/dL (Negative); Glucose,Urine (UA) 50 mg/dL (Negative); Ketones,Urine Negative (Negative); Mucus,Urine Occasional /LPF (Occasional); Nitrite,Urine Negative (Negative); Protein,Urine 100 MG/DL; RBC,Urine 1 /HPF (0-4); Urine Color Colorless (Yellow); Urine Specific Gravity 1.004 (1.001-1.035); Urine Urobilinogen < 2.0 EU/DL (0.2-1.0); WBC,Urine <1 /HPF (0-6)
[2018-04-13 15:12] LABS: Barbiturates Screen,Urine Negative (Negative); Benzodiazepines Screen,Urine Negative (Negative); Cannabinoid Screen,Urine Negative (Negative); Opiate Screen,Urine Negative (Negative); Phencyclidine Screen,Urine Negative (Negative)
[2018-04-13] MEDS ORDERED: hydrALAZINE 20 MG/1 ML VIAL IV PRN (16:36)
[2018-04-13] MEDS: INSULIN LISPRO 100 UNIT/ML SUBCUT SCH ×2 (19:16→21:19)
[2018-04-13] MEDS: INSULIN NPH 100 UNIT/ML SUBCUT SCH (19:26)
[2018-04-13] MEDS: FUROSEMIDE 40 MG/4 ML VIAL IV SCH (19:26)
[2018-04-13] MEDS: CARVEDILOL 6.25 MG TABLET PO SCH (21:19)
[2018-04-14 06:02] LABS: Basophils % 0.3 % (0.0-0.8); Eosinophils # 0.1 10*3/uL (0.0-0.87); Hematocrit 38.6 VOL% (42.0-52.0); Hemoglobin 12.3 GM/DL (14.0-18.0); Immature Granulocytes % 0.6 %; Immature Granulocytes Absolute 0.06 #; Lymphocytes # 1.2 10*3/uL (1.4-4.0); Lymphocytes % 12.5 % (21.2-54.2); Mean Corpuscular HGB Conc 31.9 GM/DL (32-36); Mean Corpuscular Hemoglobin 21 PG (27-34); Mean Corpuscular Volume 66.9 FL (87-102); Monocytes # 0.7 10*3/uL (0.11-0.8); Monocytes % 7.5 % (1.7-12.7); Neutrophils # 7.7 10*3/uL (1.4-7.4); Neutrophils % 78.1 % (38.7-73.9); Platelet Count 209 T/CUMM (130-400); Red Blood Count 5.77 MC/CUMM (3.8-5.5); Red Cell Distribution Width 21.2 % (9.3-17.3); White Blood Count 9.9 T/CUMM (4-12)
[2018-04-14 06:08] LABS: Calcium 8.5 MG/DL (8.5-10.1); Osmolality,Calculated 289.4 MOS/KG (273-304); Potassium 4.5 MMOL/L (3.5-5.1)
[2018-04-14 06:31] LABS: Hypochromasia 1+
[2018-04-14 06:32] LABS: Microcytosis 1+; Ovalocytes Slight; Platelet Estimate Normal; Polychromasia Slight; Target Cells Few
[2018-04-14] MEDS: INSULIN NPH 100 UNIT/ML SUBCUT SCH ×2 (08:15→15:58)
[2018-04-14] MEDS: INSULIN LISPRO 100 UNIT/ML SUBCUT SCH ×4 (08:15→21:39)
[2018-04-14] MEDS: PANTOPRAZOLE 40 MG TABLET PO SCH (08:16)
[2018-04-14] MEDS: FUROSEMIDE 40 MG/4 ML VIAL IV SCH ×2 (08:16→15:53)
[2018-04-14] MEDS: CARVEDILOL 6.25 MG TABLET PO SCH ×2 (08:16→21:38)
[2018-04-14] MEDS: GABAPENTIN 300 MG CAPSULE PO SCH ×3 (08:16→21:38)
[2018-04-14] MEDS: LOSARTAN 25 MG TABLET PO SCH (08:16)
[2018-04-14] MEDS ORDERED: SKIN HEALING OINT (AQUAPHOR) 50 GM TUBE TOP PRN (13:32)
[2018-04-14] MEDS: LEVOFLOXACIN INJ 500 MG in PREMIX 1 EACH IV SCH (13:46)
[2018-04-14] MEDS: ENOXAPARIN 40 MG/0.4 ML SYRINGE SUBCUT SCH (13:47)
[2018-04-14] MEDS: ALBUTEROL/IPRATROPIUM 3 ML NEB RESP TX SCH ×2 (14:00→19:08)
[2018-04-15] MEDS: ALBUTEROL/IPRATROPIUM 3 ML NEB RESP TX SCH ×4 (00:54→19:07)
[2018-04-15 06:17] LABS: Calcium 8.5 MG/DL (8.5-10.1); Osmolality,Calculated 287.4 MOS/KG (273-304); Potassium 4.1 MMOL/L (3.5-5.1)
[2018-04-15] MEDS: GABAPENTIN 300 MG CAPSULE PO SCH ×3 (09:42→21:13)
[2018-04-15] MEDS: LOSARTAN 25 MG TABLET PO SCH (09:42)
[2018-04-15] MEDS: FUROSEMIDE 40 MG/4 ML VIAL IV SCH (09:43)
[2018-04-15] MEDS: CARVEDILOL 6.25 MG TABLET PO SCH ×2 (09:43→23:12)
[2018-04-15] MEDS: INSULIN LISPRO 100 UNIT/ML SUBCUT SCH ×4 (09:43→21:13)
[2018-04-15] MEDS: INSULIN NPH 100 UNIT/ML SUBCUT SCH ×2 (09:43→18:21)
[2018-04-15] MEDS: PANTOPRAZOLE 40 MG TABLET PO SCH (09:45)
[2018-04-15] MEDS: ENOXAPARIN 40 MG/0.4 ML SYRINGE SUBCUT SCH (13:29)
[2018-04-15] MEDS: LEVOFLOXACIN INJ 500 MG in PREMIX 1 EACH IV SCH (13:30)
[2018-04-16] MEDS: ALBUTEROL/IPRATROPIUM 3 ML NEB RESP TX SCH ×2 (00:15→07:47)
[2018-04-16 06:04] LABS: Calcium 8.6 MG/DL (8.5-10.1); Osmolality,Calculated 291.1 MOS/KG (273-304); Potassium 4.5 MMOL/L (3.5-5.1)
[2018-04-16] MEDS ORDERED: FUROSEMIDE 40 MG/4 ML VIAL IV SCH (09:00)
[2018-04-16] MEDS: INSULIN NPH 100 UNIT/ML SUBCUT SCH (10:00)
[2018-04-16] MEDS: PANTOPRAZOLE 40 MG TABLET PO SCH (10:00)
[2018-04-16] MEDS: CARVEDILOL 6.25 MG TABLET PO SCH (10:00)
[2018-04-16] MEDS: GABAPENTIN 300 MG CAPSULE PO SCH (10:00)
[2018-04-16] MEDS: LOSARTAN 25 MG TABLET PO SCH (10:00)
[2018-04-16] MEDS: INSULIN LISPRO 100 UNIT/ML SUBCUT SCH ×2 (10:01→13:04)
[2018-04-16] MEDS: ENOXAPARIN 40 MG/0.4 ML SYRINGE SUBCUT SCH (13:05)
[2018-04-16] MEDS: LEVOFLOXACIN INJ 500 MG in PREMIX 1 EACH IV SCH (13:51)
[2018-04-16 14:27] VITALS: BP 165/90
== END 2018-04-16 14:25 | disposition home health service (06) | DRG 194 ==
LOC: N.ED 09:57 → N.EDINP 11:40 → N.TELES 17:09

== ENCOUNTER 2018-05-28 02:33 | Inpatient (IN) ==
[2018-05-28] MEDS ORDERED: SODIUM CHLORIDE 0.9% 1,000 ML IV STA (03:03)
[2018-05-28] MEDS ORDERED: VANCOMYCIN INJ 1,500 MG in SODIUM CHLORIDE 0.9% 500 ML IV STA (03:04)
[2018-05-28] MEDS ORDERED: CEFEPIME 2,000 MG in SODIUM CHLORIDE 0.9% 100 ML IV STA ×2 (03:04→03:30)
[2018-05-28] MEDS ORDERED: metroNIDAZOLE INJ 500 MG in PREMIX 1 EACH IV STA (03:05)
[2018-05-28] MEDS ORDERED: SODIUM CHLORIDE 0.9% 100 ML IV ONE (03:22)
[2018-05-28] MEDS ORDERED: CEFEPIME 2,000 MG in SYRINGE 1 EACH IV STA (03:30)
[2018-05-28 03:32] LABS: Apearance,Urine CLEAR (Clear); Bilirubin,Urine Negative (Negative); Blood, Urine Small mg/dL (Negative); Glucose,Urine (UA) 150 mg/dL (Negative); Hyaline Casts,Urine 1 /LPF (0-3); Ketones,Urine Negative (Negative); Mucus,Urine Occasional /LPF (Occasional); Nitrite,Urine Negative (Negative); Protein,Urine >=500 MG/DL; RBC,Urine 2 /HPF (0-4); Squamous Epithelial Cell,Urine Occasional /HPF (0-10); Urine Color Straw (Yellow); Urine Specific Gravity 1.009 (1.001-1.035); WBC,Urine <1 /HPF (0-6)
[2018-05-28 03:38] LABS: Alanine Aminotransferase 40 U/L (16-61); Albumin 2.3 G/DL (3.4-5.0); Alkaline Phosphatase 120 U/L (45-117); Aspartate Amino Transferase 29 U/L (0-37); Bilirubin,Total < 0.39 MG/DL (0.2-1.0); Blood Urea Nitrogen 33 MG/DL (7-18); Calcium 8.2 MG/DL (8.5-10.1); Glucose 229 MG/DL (74-106); Osmolality,Calculated 288.7 MOS/KG (273-304); Potassium 4.8 MMOL/L (3.5-5.1); Sodium 138 MMOL/L (136-145); Total Protein 7.1 G/DL (6.4-8.3)
[2018-05-28 03:49] LABS: Basophils % 0.2 % (0.0-0.8); Eosinophils # 0.1 10*3/uL (0.0-0.87); Eosinophils % 0.5 % (0.00-10.9); Hematocrit 42.4 VOL% (42.0-52.0); Hemoglobin 13.2 GM/DL (14.0-18.0); Immature Granulocytes % 0.9 %; Immature Granulocytes Absolute 0.11 #; Mean Corpuscular HGB Conc 31.1 GM/DL (32-36); Mean Corpuscular Hemoglobin 22 PG (27-34); Mean Corpuscular Volume 68.9 FL (87-102); Monocytes # 1.1 10*3/uL (0.11-0.8); Monocytes % 8.6 % (1.7-12.7); Neutrophils # 9.2 10*3/uL (1.4-7.4); Neutrophils % 73.8 % (38.7-73.9); Platelet Count 229 T/CUMM (130-400); Red Blood Count 6.15 MC/CUMM (3.8-5.5); Red Cell Distribution Width 20.7 % (9.3-17.3); White Blood Count 12.4 T/CUMM (4-12)
[2018-05-28] MEDS ORDERED: MORPHINE 4 MG/1 ML VIAL IV STA (04:02)
[2018-05-28] MEDS ORDERED: ONDANSETRON 4 MG/2 ML VIAL IV STA (04:03)
[2018-05-28] MEDS ORDERED: ONDANSETRON 4 MG/2 ML VIAL ONE (04:04)
[2018-05-28 04:11] LABS: Lactic Acid 1.8 MMOL/L (0.4-2.0)
[2018-05-28 04:38] LABS: Hypochromasia 1+; Platelet Estimate Adequate
[2018-05-28 04:39] LABS: Microcytosis Slight
[2018-05-28] MEDS ORDERED: GLUCAGON 1 MG VIAL IM PRN (05:49)
[2018-05-28] MEDS ORDERED: ACETAMINOPHEN 325 MG TABLET PO PRN (05:49)
[2018-05-28] MEDS ORDERED: DEXTROSE 50% 25 GM/50 ML VIAL IV PRN (05:49)
[2018-05-28] MEDS ORDERED: ONDANSETRON 4 MG/2 ML VIAL IV PRN (05:49)
[2018-05-28] MEDS ORDERED: VANCOMYCIN INJ 1,000 MG in SODIUM CHLORIDE 0.9% 250 ML IV ONE (06:30)
[2018-05-28 06:52] LABS: Sedimentation Rate-Westergren 17 MM/HR (0-15)
[2018-05-28] MEDS: INSULIN REGULAR 100 UNIT/ML SUBCUT SCH ×4 (07:51→21:20)
[2018-05-28] MEDS: LOSARTAN 25 MG TABLET PO SCH (09:10)
[2018-05-28] MEDS: PANTOPRAZOLE 40 MG TABLET PO SCH (09:10)
[2018-05-28] MEDS: SPIRONOLACTONE 25 MG TABLET PO SCH (09:10)
[2018-05-28] MEDS: CARVEDILOL 6.25 MG TABLET PO SCH ×2 (09:10→21:19)
[2018-05-28] MEDS: PIPERACILLIN/TAZOBACTAM 3,375 MG in SODIUM CHLORIDE 0.9% 100 ML IV SCH ×2 (09:10→16:54)
[2018-05-28] MEDS: FUROSEMIDE 40 MG TABLET PO SCH (09:10)
[2018-05-28] MEDS: ENOXAPARIN 40 MG/0.4 ML SYRINGE SUBCUT SCH (09:10)
[2018-05-28] MEDS: GABAPENTIN 300 MG CAPSULE PO SCH ×3 (09:25→21:19)
[2018-05-28] MEDS ORDERED: SKIN HEALING OINT (AQUAPHOR) 50 GM TUBE TOP PRN (15:36)
[2018-05-28] MEDS: MORPHINE 4 MG/1 ML VIAL IV PRN (23:07)
[2018-05-29] MEDS: PIPERACILLIN/TAZOBACTAM 3,375 MG in SODIUM CHLORIDE 0.9% 100 ML IV SCH ×3 (00:08→17:40)
[2018-05-29 05:44] LABS: Basophils % 0.2 % (0.0-0.8); Eosinophils # 0.1 10*3/uL (0.0-0.87); Eosinophils % 1.3 % (0.00-10.9); Hematocrit 37.1 VOL% (42.0-52.0); Hemoglobin 11.5 GM/DL (14.0-18.0); Immature Granulocytes Absolute 0.09 #; Lymphocytes # 1.9 10*3/uL (1.4-4.0); Lymphocytes % 19.8 % (21.2-54.2); Mean Corpuscular Hemoglobin 21 PG (27-34); Mean Corpuscular Volume 67.9 FL (87-102); Mean Platelet Volume 10.9 FL (9.6-12.0); Monocytes # 0.9 10*3/uL (0.11-0.8); Monocytes % 9.2 % (1.7-12.7); NRBC # 0.02 10*3/uL; Neutrophils # 6.4 10*3/uL (1.4-7.4); Neutrophils % 68.5 % (38.7-73.9); Platelet Count 204 T/CUMM (130-400); Red Blood Count 5.46 MC/CUMM (3.8-5.5); Red Cell Distribution Width 20.1 % (9.3-17.3); White Blood Count 9.3 T/CUMM (4-12)
[2018-05-29] MEDS: VANCOMYCIN INJ 2,500 MG in SODIUM CHLORIDE 0.9% 500 ML IV SCH (05:45)
[2018-05-29 06:10] LABS: Hypochromasia 1+; Microcytosis 1+; Platelet Estimate Normal; Target Cells Slight
[2018-05-29 06:19] LABS: Calcium 8.2 MG/DL (8.5-10.1); Osmolality,Calculated 290.3 MOS/KG (273-304); Potassium 4.9 MMOL/L (3.5-5.1)
[2018-05-29] MEDS: MORPHINE 4 MG/1 ML VIAL IV PRN (08:39)
[2018-05-29] MEDS: LOSARTAN 25 MG TABLET PO SCH (09:01)
[2018-05-29] MEDS: INSULIN REGULAR 100 UNIT/ML SUBCUT SCH ×4 (09:01→21:29)
[2018-05-29] MEDS: PANTOPRAZOLE 40 MG TABLET PO SCH (09:01)
[2018-05-29] MEDS: ENOXAPARIN 40 MG/0.4 ML SYRINGE SUBCUT SCH (09:01)
[2018-05-29] MEDS: FUROSEMIDE 40 MG TABLET PO SCH (09:01)
[2018-05-29] MEDS: GABAPENTIN 300 MG CAPSULE PO SCH ×3 (09:01→21:29)
[2018-05-29] MEDS: CARVEDILOL 6.25 MG TABLET PO SCH ×2 (09:01→21:29)
[2018-05-29] MEDS: SPIRONOLACTONE 25 MG TABLET PO SCH (09:01)
[2018-05-29] MEDS ORDERED: HYDROmorphone 2 MG/1 ML VIAL IV ONE (15:00)
[2018-05-30] MEDS: PIPERACILLIN/TAZOBACTAM 3,375 MG in SODIUM CHLORIDE 0.9% 100 ML IV SCH ×3 (00:07→17:15)
[2018-05-30] MEDS: MORPHINE 4 MG/1 ML VIAL IV PRN (01:30)
[2018-05-30] MEDS: VANCOMYCIN INJ 2,500 MG in SODIUM CHLORIDE 0.9% 500 ML IV SCH (05:14)
[2018-05-30] MEDS: GABAPENTIN 300 MG CAPSULE PO SCH ×3 (09:19→20:39)
[2018-05-30] MEDS: CARVEDILOL 6.25 MG TABLET PO SCH ×2 (09:19→20:40)
[2018-05-30] MEDS: INSULIN REGULAR 100 UNIT/ML SUBCUT SCH ×4 (09:19→20:38)
[2018-05-30] MEDS: SPIRONOLACTONE 25 MG TABLET PO SCH (09:20)
[2018-05-30] MEDS: ENOXAPARIN 40 MG/0.4 ML SYRINGE SUBCUT SCH (09:20)
[2018-05-30] MEDS: FUROSEMIDE 40 MG TABLET PO SCH (09:20)
[2018-05-30] MEDS: PANTOPRAZOLE 40 MG TABLET PO SCH (09:20)
[2018-05-30] MEDS: LOSARTAN 25 MG TABLET PO SCH (09:20)
[2018-05-31] MEDS: PIPERACILLIN/TAZOBACTAM 3,375 MG in SODIUM CHLORIDE 0.9% 100 ML IV SCH ×3 (00:19→17:40)
[2018-05-31] MEDS: VANCOMYCIN INJ 2,500 MG in SODIUM CHLORIDE 0.9% 500 ML IV SCH (05:12)
[2018-05-31] MEDS: INSULIN REGULAR 100 UNIT/ML SUBCUT SCH ×4 (09:30→20:40)
[2018-05-31] MEDS: FUROSEMIDE 40 MG TABLET PO SCH (09:31)
[2018-05-31] MEDS: GABAPENTIN 300 MG CAPSULE PO SCH ×3 (09:31→20:39)
[2018-05-31] MEDS: LOSARTAN 25 MG TABLET PO SCH (09:31)
[2018-05-31] MEDS: CARVEDILOL 6.25 MG TABLET PO SCH ×2 (09:31→20:40)
[2018-05-31] MEDS: ENOXAPARIN 40 MG/0.4 ML SYRINGE SUBCUT SCH (09:31)
[2018-05-31] MEDS: PANTOPRAZOLE 40 MG TABLET PO SCH (09:31)
[2018-05-31] MEDS: SPIRONOLACTONE 25 MG TABLET PO SCH (09:31)
[2018-05-31] MEDS: FUROSEMIDE 40 MG/4 ML VIAL IV SCH (12:59)
[2018-06-01] MEDS: PIPERACILLIN/TAZOBACTAM 3,375 MG in SODIUM CHLORIDE 0.9% 100 ML IV SCH ×3 (00:23→16:55)
[2018-06-01] MEDS: VANCOMYCIN INJ 2,500 MG in SODIUM CHLORIDE 0.9% 500 ML IV SCH (05:15)
[2018-06-01 06:33] LABS: Basophils % 0.3 % (0.0-0.8); Eosinophils # 0.1 10*3/uL (0.0-0.87); Eosinophils % 1.4 % (0.00-10.9); Hematocrit 39.2 VOL% (42.0-52.0); Hemoglobin 12.5 GM/DL (14.0-18.0); Immature Granulocytes % 0.5 %; Immature Granulocytes Absolute 0.04 #; Lymphocytes # 1.4 10*3/uL (1.4-4.0); Lymphocytes % 18.3 % (21.2-54.2); Mean Corpuscular HGB Conc 31.9 GM/DL (32-36); Mean Corpuscular Hemoglobin 22 PG (27-34); Mean Corpuscular Volume 68.9 FL (87-102); Monocytes # 0.7 10*3/uL (0.11-0.8); Monocytes % 9.4 % (1.7-12.7); Neutrophils # 5.4 10*3/uL (1.4-7.4); Neutrophils % 70.1 % (38.7-73.9); Platelet Count 234 T/CUMM (130-400); Red Blood Count 5.69 MC/CUMM (3.8-5.5); Red Cell Distribution Width 20.1 % (9.3-17.3); White Blood Count 7.8 T/CUMM (4-12)
[2018-06-01 07:02] LABS: Anisocytosis Slight; Microcytosis 3+; Platelet Estimate Normal
[2018-06-01 07:15] LABS: Calcium 8.6 MG/DL (8.5-10.1); Osmolality,Calculated 291.4 MOS/KG (273-304)
[2018-06-01] MEDS: FUROSEMIDE 40 MG/4 ML VIAL IV SCH (09:31)
[2018-06-01] MEDS: ENOXAPARIN 40 MG/0.4 ML SYRINGE SUBCUT SCH (09:31)
[2018-06-01] MEDS: SPIRONOLACTONE 25 MG TABLET PO SCH (09:31)
[2018-06-01] MEDS: CARVEDILOL 6.25 MG TABLET PO SCH ×2 (09:32→21:15)
[2018-06-01] MEDS: INSULIN REGULAR 100 UNIT/ML SUBCUT SCH ×4 (09:32→21:15)
[2018-06-01] MEDS: GABAPENTIN 300 MG CAPSULE PO SCH ×3 (09:32→21:15)
[2018-06-01] MEDS: PANTOPRAZOLE 40 MG TABLET PO SCH (09:32)
[2018-06-01] MEDS: LOSARTAN 25 MG TABLET PO SCH (09:32)
[2018-06-02] MEDS: PIPERACILLIN/TAZOBACTAM 3,375 MG in SODIUM CHLORIDE 0.9% 100 ML IV SCH ×4 (01:39→17:01)
[2018-06-02] MEDS: INSULIN REGULAR 100 UNIT/ML SUBCUT SCH ×4 (09:11→21:08)
[2018-06-02] MEDS: ENOXAPARIN 40 MG/0.4 ML SYRINGE SUBCUT SCH (09:12)
[2018-06-02] MEDS: GABAPENTIN 300 MG CAPSULE PO SCH ×3 (09:12→20:33)
[2018-06-02] MEDS: LOSARTAN 25 MG TABLET PO SCH (09:12)
[2018-06-02] MEDS: FUROSEMIDE 40 MG/4 ML VIAL IV SCH (09:13)
[2018-06-02] MEDS: SPIRONOLACTONE 25 MG TABLET PO SCH (09:13)
[2018-06-02] MEDS: CARVEDILOL 6.25 MG TABLET PO SCH ×2 (09:13→20:33)
[2018-06-02] MEDS: VANCOMYCIN INJ 2,000 MG in SODIUM CHLORIDE 0.9% 500 ML IV SCH (09:13)
[2018-06-02] MEDS: PANTOPRAZOLE 40 MG TABLET PO SCH (09:13)
[2018-06-03] MEDS: PIPERACILLIN/TAZOBACTAM 3,375 MG in SODIUM CHLORIDE 0.9% 100 ML IV SCH ×2 (00:44→11:24)
[2018-06-03] MEDS ORDERED: glyBURIDE 2.5 MG TABLET PO SCH (08:00)
[2018-06-03] MEDS: INSULIN REGULAR 100 UNIT/ML SUBCUT SCH ×2 (09:04→12:21)
[2018-06-03] MEDS: GABAPENTIN 300 MG CAPSULE PO SCH (09:04)
[2018-06-03] MEDS: CARVEDILOL 6.25 MG TABLET PO SCH (09:04)
[2018-06-03] MEDS: LOSARTAN 25 MG TABLET PO SCH (09:05)
[2018-06-03] MEDS: PANTOPRAZOLE 40 MG TABLET PO SCH (09:05)
[2018-06-03] MEDS: VANCOMYCIN INJ 2,000 MG in SODIUM CHLORIDE 0.9% 500 ML IV SCH (09:05)
[2018-06-03] MEDS: SPIRONOLACTONE 25 MG TABLET PO SCH (09:05)
[2018-06-03] MEDS: ENOXAPARIN 40 MG/0.4 ML SYRINGE SUBCUT SCH (09:05)
[2018-06-03] MEDS: FUROSEMIDE 40 MG/4 ML VIAL IV SCH (09:05)
[2018-06-03 12:51] VITALS: BP 149/89
== END 2018-06-03 12:50 | disposition home health service (06) | DRG 501 ==
LOC: N.ED 02:33 → N.EDINP 05:46 → SUATTDRO 05:46 → N.2W 12:14 → N.5E 13:40
PROVIDERS: ADMIT Emergency Medicine; ATTEND Internal Medicine Geriatric Medicine

== ENCOUNTER 2018-09-14 08:50 | Inpatient (IN) ==
[2018-09-14 09:57] LABS: Basophils % 0.1 % (0.0-0.8); Eosinophils # 0.1 10*3/uL (0.0-0.87); Eosinophils % 0.7 % (0.00-10.9); Hematocrit 42.9 VOL% (42.0-52.0); Hemoglobin 13.1 GM/DL (14.0-18.0); Immature Granulocytes % 0.5 %; Immature Granulocytes Absolute 0.04 #; Lymphocytes # 1.2 10*3/uL (1.4-4.0); Lymphocytes % 14.1 % (21.2-54.2); Mean Corpuscular HGB Conc 30.5 GM/DL (32-36); Mean Corpuscular Hemoglobin 22 PG (27-34); Mean Corpuscular Volume 71.5 FL (87-102); Monocytes # 0.6 10*3/uL (0.11-0.8); Monocytes % 6.3 % (1.7-12.7); Neutrophils # 6.8 10*3/uL (1.4-7.4); Neutrophils % 78.3 % (38.7-73.9); Platelet Count 198 T/CUMM (130-400); Red Cell Distribution Width 19.6 % (9.3-17.3); White Blood Count 8.7 T/CUMM (4-12)
[2018-09-14 10:25] LABS: Albumin 2.5 G/DL (3.4-5.0); Bilirubin,Total 0.5 MG/DL (0.2-1.0); Calcium 9.3 MG/DL (8.5-10.1); Potassium 4.1 MMOL/L (3.5-5.1); Total Protein 7.3 G/DL (6.4-8.3)
[2018-09-14 10:50] LABS: Hypochromasia 1+; Microcytosis 1+; Platelet Estimate Adequate
[2018-09-14] MEDS ORDERED: ALBUTEROL/IPRATROPIUM 3 ML NEB RESP TX STA (11:04)
[2018-09-14] MEDS ORDERED: ASPIRIN 325 MG TABLET PO STA (11:04)
[2018-09-14] MEDS ORDERED: ONDANSETRON 4 MG/2 ML VIAL IV STA (11:04)
[2018-09-14] MEDS ORDERED: FUROSEMIDE 100 MG/10 ML VIAL IV STA (11:04)
[2018-09-14] MEDS ORDERED: MORPHINE 4 MG/1 ML VIAL IV STA (11:04)
[2018-09-14 11:21] LABS: PT Patient Result 10.5 SECS; Partial Thromboplastin Time 28.8 SECS (0-40)
[2018-09-14] MEDS ORDERED: ENOXAPARIN 120 MG/0.8 ML SYRINGE SUBCUT STA (11:31)
[2018-09-14] MEDS ORDERED: ENOXAPARIN 100 MG/ML SYRINGE SUBCUT STA (11:31)
[2018-09-14] MEDS ORDERED: LACTULOSE 20 GM/30 ML UDCUP PO PRN (11:51)
[2018-09-14] MEDS ORDERED: DEXTROSE 50% 25 GM/50 ML VIAL IV PRN (11:51)
[2018-09-14] MEDS ORDERED: ONDANSETRON 4 MG/2 ML VIAL IV PRN (11:51)
[2018-09-14] MEDS ORDERED: GLUCAGON 1 MG VIAL IM PRN (11:51)
[2018-09-14] MEDS ORDERED: INFLUENZA VIRUS VACCINE 0.5 ML SYRINGE IM ONE (13:29)
[2018-09-14] MEDS: GABAPENTIN 300 MG CAPSULE PO SCH ×2 (15:13→20:17)
[2018-09-14] MEDS: CARVEDILOL 6.25 MG TABLET PO SCH ×2 (15:13→16:56)
[2018-09-14] MEDS: LOSARTAN 25 MG TABLET PO SCH (15:13)
[2018-09-14] MEDS: INSULIN LISPRO 100 UNIT/ML SUBCUT SCH ×2 (16:55→20:18)
[2018-09-14] MEDS: ACETAMINOPHEN 325 MG TABLET PO PRN (16:56)
[2018-09-14] MEDS ORDERED: ENOXAPARIN 40 MG/0.4 ML SYRINGE SUBCUT SCH (21:00)
[2018-09-15] MEDS: FUROSEMIDE 40 MG/4 ML VIAL IV SCH ×2 (00:58→12:17)
[2018-09-15 05:22] LABS: Calcium 8.5 MG/DL (8.5-10.1); Osmolality,Calculated 289.4 MOS/KG (273-304); Potassium 4.3 MMOL/L (3.5-5.1)
[2018-09-15 06:00] LABS: Basophils % 0.3 % (0.0-0.8); Eosinophils # 0.1 10*3/uL (0.0-0.87); Hematocrit 38.5 VOL% (42.0-52.0); Immature Granulocytes % 0.4 %; Immature Granulocytes Absolute 0.03 #; Lymphocytes # 1.2 10*3/uL (1.4-4.0); Lymphocytes % 17.4 % (21.2-54.2); Mean Corpuscular HGB Conc 30.6 GM/DL (32-36); Mean Corpuscular Hemoglobin 22 PG (27-34); Mean Corpuscular Volume 70.8 FL (87-102); Monocytes # 0.7 10*3/uL (0.11-0.8); Monocytes % 9.7 % (1.7-12.7); Neutrophils % 71.2 % (38.7-73.9); Platelet Count 180 T/CUMM (130-400); Red Blood Count 5.44 MC/CUMM (3.8-5.5); Red Cell Distribution Width 19.4 % (9.3-17.3); White Blood Count 7.1 T/CUMM (4-12)
[2018-09-15 06:04] LABS: Hemoglobin 11.8 GM/DL (14.0-18.0)
[2018-09-15] MEDS ORDERED: glyBURIDE 5 MG TABLET PO SCH (08:00)
[2018-09-15] MEDS ORDERED: PANTOPRAZOLE 40 MG TABLET PO SCH (09:00)
[2018-09-15] MEDS ORDERED: ASPIRIN 325 MG TABLET PO SCH (09:00)
[2018-09-15] MEDS: LOSARTAN 25 MG TABLET PO SCH (09:46)
[2018-09-15] MEDS: GABAPENTIN 300 MG CAPSULE PO SCH (09:46)
[2018-09-15] MEDS: ACETAMINOPHEN 325 MG TABLET PO PRN (09:47)
[2018-09-15] MEDS: CARVEDILOL 6.25 MG TABLET PO SCH (09:47)
[2018-09-15] MEDS: INSULIN LISPRO 100 UNIT/ML SUBCUT SCH ×2 (09:48→12:02)
[2018-09-15 11:04] VITALS: BP 126/66
[2018-09-15] MEDS ORDERED: SKIN HEALING OINT (AQUAPHOR) 50 GM TUBE TOP SCH (12:00)
== END 2018-09-15 14:20 | disposition home or self-care (01) | DRG 194 ==
LOC: N.ED 08:50 → N.EDINP 11:52 → N.3E 12:59
PROVIDERS: ADMIT Internal Medicine; ATTEND Internal Medicine

== ENCOUNTER 2018-09-22 08:10 | Inpatient (IN) ==
[2018-09-22] MEDS ORDERED: FUROSEMIDE 40 MG/4 ML VIAL IV STA (08:53)
[2018-09-22 09:13] LABS: Basophils % 0.3 % (0.0-0.8); Eosinophils # 0.1 10*3/uL (0.0-0.87); Eosinophils % 1.1 % (0.00-10.9); Hematocrit 41.5 VOL% (42.0-52.0); Hemoglobin 12.7 GM/DL (14.0-18.0); Immature Granulocytes % 0.4 %; Immature Granulocytes Absolute 0.03 #; Lymphocytes # 1.2 10*3/uL (1.4-4.0); Lymphocytes % 16.2 % (21.2-54.2); Mean Corpuscular HGB Conc 30.6 GM/DL (32-36); Mean Corpuscular Hemoglobin 22 PG (27-34); Mean Corpuscular Volume 71.3 FL (87-102); Monocytes # 0.5 10*3/uL (0.11-0.8); Monocytes % 7.2 % (1.7-12.7); Neutrophils # 5.6 10*3/uL (1.4-7.4); Neutrophils % 74.8 % (38.7-73.9); Platelet Count 219 T/CUMM (130-400); Red Blood Count 5.82 MC/CUMM (3.8-5.5); Red Cell Distribution Width 18.5 % (9.3-17.3); White Blood Count 7.5 T/CUMM (4-12)
[2018-09-22 09:32] LABS: Albumin 2.4 G/DL (3.4-5.0); Bilirubin,Total 0.6 MG/DL (0.2-1.0); Calcium 8.6 MG/DL (8.5-10.1); Osmolality,Calculated 284.4 MOS/KG (273-304); Potassium 5.2 MMOL/L (3.5-5.1); Total Protein 7.3 G/DL (6.4-8.3)
[2018-09-22 09:34] LABS: Hypochromasia 1+; Ovalocytes Slight; Platelet Estimate Adequate
[2018-09-22 09:35] LABS: Microcytosis Slight
[2018-09-22] MEDS ORDERED: DOCUSATE SODIUM 100 MG CAPSULE PO PRN (10:17)
[2018-09-22] MEDS ORDERED: ONDANSETRON 4 MG/2 ML VIAL IV PRN (10:17)
[2018-09-22] MEDS ORDERED: INFLUENZA VIRUS VACCINE 0.5 ML SYRINGE IM ONE (11:51)
[2018-09-22 12:06] LABS: Apearance,Urine CLEAR (Clear); Bilirubin,Urine Negative (Negative); Blood, Urine Small mg/dL (Negative); Glucose,Urine (UA) 50 mg/dL (Negative); Ketones,Urine Negative (Negative); Mucus,Urine Occasional /LPF (Occasional); Nitrite,Urine Negative (Negative); Protein,Urine 100 MG/DL; RBC,Urine 1 /HPF (0-4); Squamous Epithelial Cell,Urine Occasional /HPF (0-10); Urine Color Straw (Yellow); Urine Specific Gravity 1.006 (1.001-1.035); Urine Urobilinogen < 2.0 EU/DL (0.2-1.0); WBC,Urine <1 /HPF (0-6)
[2018-09-22] MEDS: ASPIRIN EC 81 MG TABLET PO SCH (12:07)
[2018-09-22] MEDS: ENOXAPARIN 40 MG/0.4 ML SYRINGE SUBCUT SCH (12:07)
[2018-09-22 12:09] LABS: Barbiturates Screen,Urine Negative (Negative); Benzodiazepines Screen,Urine Negative (Negative); Cannabinoid Screen,Urine Negative (Negative); Opiate Screen,Urine Negative (Negative); Phencyclidine Screen,Urine Negative (Negative)
[2018-09-22] MEDS: INSULIN REGULAR 100 UNIT/ML SUBCUT SCH ×3 (12:10→21:19)
[2018-09-22 12:37] LABS: Troponin I 0.031 NG/ML (0.00-0.045)
[2018-09-22] MEDS: FUROSEMIDE 40 MG/4 ML VIAL IV SCH ×2 (14:44→21:19)
[2018-09-22] MEDS: GABAPENTIN 300 MG CAPSULE PO SCH ×2 (14:48→21:24)
[2018-09-22] MEDS: ACETAMINOPHEN 325 MG TABLET PO PRN (15:32)
[2018-09-22] MEDS: MUPIROCIN 2% OINT 22 GM TUBE TOP SCH ×2 (17:30→21:19)
[2018-09-22 19:31] LABS: Troponin I 0.029 NG/ML (0.00-0.045)
[2018-09-22] MEDS ORDERED: CARVEDILOL 6.25 MG TABLET PO SCH (21:00)
[2018-09-22] MEDS: CARVEDILOL 12.5 MG TABLET PO SCH (21:19)
[2018-09-22] MEDS: ZALEPLON 5 MG CAPSULE PO PRN (21:20)
[2018-09-23 03:21] LABS: Troponin I 0.036 NG/ML (0.00-0.045)
[2018-09-23 05:59] LABS: Basophils % 0.4 % (0.0-0.8); Eosinophils # 0.1 10*3/uL (0.0-0.87); Eosinophils % 1.1 % (0.00-10.9); Hematocrit 35.6 VOL% (42.0-52.0); Hemoglobin 10.7 GM/DL (14.0-18.0); Immature Granulocytes % 0.3 %; Immature Granulocytes Absolute 0.02 #; Lymphocytes # 1.3 10*3/uL (1.4-4.0); Lymphocytes % 16.9 % (21.2-54.2); Mean Corpuscular HGB Conc 30.1 GM/DL (32-36); Mean Corpuscular Hemoglobin 21 PG (27-34); Mean Corpuscular Volume 70.6 FL (87-102); Mean Platelet Volume 11.5 FL (9.6-12.0); Monocytes # 0.8 10*3/uL (0.11-0.8); Monocytes % 10.1 % (1.7-12.7); Neutrophils # 5.7 10*3/uL (1.4-7.4); Neutrophils % 71.2 % (38.7-73.9); Platelet Count 219 T/CUMM (130-400); Red Blood Count 5.04 MC/CUMM (3.8-5.5); Red Cell Distribution Width 16.4 % (9.3-17.3); White Blood Count 7.9 T/CUMM (4-12)
[2018-09-23 06:33] LABS: Hypochromasia 2+; Microcytosis 1+
[2018-09-23 06:34] LABS: Ovalocytes Slight; Platelet Estimate Normal; Polychromasia Slight; Target Cells Few
[2018-09-23 06:35] LABS: Calcium 8.5 MG/DL (8.5-10.1); Osmolality,Calculated 284.5 MOS/KG (273-304); Potassium 4.4 MMOL/L (3.5-5.1); Risk Ratio 2.48; VLDL CHOLESTEROL 7.4 MG/DL
[2018-09-23] MEDS: FUROSEMIDE 40 MG/4 ML VIAL IV SCH ×2 (08:45→21:40)
[2018-09-23] MEDS: LOSARTAN 25 MG TABLET PO SCH (08:45)
[2018-09-23] MEDS: GABAPENTIN 300 MG CAPSULE PO SCH ×3 (08:48→21:39)
[2018-09-23] MEDS: PANTOPRAZOLE 40 MG TABLET PO SCH (08:49)
[2018-09-23] MEDS: glyBURIDE 2.5 MG TABLET PO SCH (08:49)
[2018-09-23] MEDS: CARVEDILOL 12.5 MG TABLET PO SCH (08:49)
[2018-09-23] MEDS: ASPIRIN EC 81 MG TABLET PO SCH (08:49)
[2018-09-23] MEDS: INSULIN REGULAR 100 UNIT/ML SUBCUT SCH ×4 (09:44→22:04)
[2018-09-23] MEDS: ENOXAPARIN 40 MG/0.4 ML SYRINGE SUBCUT SCH (10:29)
[2018-09-23] MEDS: MUPIROCIN 2% OINT 22 GM TUBE TOP SCH ×2 (10:31→21:40)
[2018-09-23] MEDS: amLODIPine 5 MG TABLET PO SCH (11:37)
[2018-09-23] MEDS: ZALEPLON 5 MG CAPSULE PO PRN (21:39)
[2018-09-24] MEDS: MUPIROCIN 2% OINT 22 GM TUBE TOP SCH ×3 (05:14→21:57)
[2018-09-24 05:47] LABS: Basophils % 0.2 % (0.0-0.8); Eosinophils # 0.1 10*3/uL (0.0-0.87); Eosinophils % 1.3 % (0.00-10.9); Hematocrit 39.3 VOL% (42.0-52.0); Hemoglobin 11.8 GM/DL (14.0-18.0); Immature Granulocytes % 0.2 %; Immature Granulocytes Absolute 0.02 #; Lymphocytes # 1.7 10*3/uL (1.4-4.0); Lymphocytes % 20.9 % (21.2-54.2); Mean Corpuscular Hemoglobin 21 PG (27-34); Mean Corpuscular Volume 70.4 FL (87-102); Monocytes # 0.8 10*3/uL (0.11-0.8); Neutrophils # 5.6 10*3/uL (1.4-7.4); Neutrophils % 67.4 % (38.7-73.9); Platelet Count 203 T/CUMM (130-400); Red Blood Count 5.58 MC/CUMM (3.8-5.5); Red Cell Distribution Width 16.7 % (9.3-17.3); White Blood Count 8.3 T/CUMM (4-12)
[2018-09-24 05:51] LABS: Calcium 8.8 MG/DL (8.5-10.1); Osmolality,Calculated 283.8 MOS/KG (273-304); Potassium 4.3 MMOL/L (3.5-5.1)
[2018-09-24 06:12] LABS: Platelet Estimate Normal; Target Cells Few
[2018-09-24] MEDS: glyBURIDE 2.5 MG TABLET PO SCH (09:55)
[2018-09-24] MEDS: ASPIRIN EC 81 MG TABLET PO SCH (09:55)
[2018-09-24] MEDS: PANTOPRAZOLE 40 MG TABLET PO SCH (09:55)
[2018-09-24] MEDS: GABAPENTIN 300 MG CAPSULE PO SCH ×3 (09:56→22:03)
[2018-09-24] MEDS: INSULIN REGULAR 100 UNIT/ML SUBCUT SCH ×4 (09:56→21:58)
[2018-09-24] MEDS: amLODIPine 5 MG TABLET PO SCH (09:56)
[2018-09-24] MEDS: LOSARTAN 25 MG TABLET PO SCH (09:56)
[2018-09-24] MEDS: ENOXAPARIN 40 MG/0.4 ML SYRINGE SUBCUT SCH (09:57)
[2018-09-24] MEDS: FUROSEMIDE 40 MG/4 ML VIAL IV SCH ×2 (09:57→21:58)
[2018-09-25 03:46] LABS: Basophils % 0.3 % (0.0-0.8); Eosinophils # 0.1 10*3/uL (0.0-0.87); Eosinophils % 1.5 % (0.00-10.9); Hemoglobin 11.2 GM/DL (14.0-18.0); Immature Granulocytes % 0.3 %; Immature Granulocytes Absolute 0.02 #; Lymphocytes # 1.6 10*3/uL (1.4-4.0); Lymphocytes % 22.1 % (21.2-54.2); Mean Corpuscular HGB Conc 30.3 GM/DL (32-36); Mean Corpuscular Hemoglobin 22 PG (27-34); Mean Corpuscular Volume 71.2 FL (87-102); Monocytes # 0.9 10*3/uL (0.11-0.8); Monocytes % 12.6 % (1.7-12.7); Neutrophils # 4.7 10*3/uL (1.4-7.4); Neutrophils % 63.2 % (38.7-73.9); Platelet Count 156 T/CUMM (130-400); Red Cell Distribution Width 16.6 % (9.3-17.3); White Blood Count 7.4 T/CUMM (4-12)
[2018-09-25 04:02] LABS: Calcium 8.7 MG/DL (8.5-10.1); Osmolality,Calculated 285.5 MOS/KG (273-304); Potassium 4.6 MMOL/L (3.5-5.1)
[2018-09-25 04:16] LABS: Polychromasia Few
[2018-09-25 04:17] LABS: Platelet Estimate Adequate
[2018-09-25] MEDS: INSULIN REGULAR 100 UNIT/ML SUBCUT SCH ×4 (09:16→21:54)
[2018-09-25] MEDS: FUROSEMIDE 40 MG/4 ML VIAL IV SCH ×2 (09:18→20:59)
[2018-09-25] MEDS: glyBURIDE 2.5 MG TABLET PO SCH (09:22)
[2018-09-25] MEDS: GABAPENTIN 300 MG CAPSULE PO SCH ×3 (09:22→20:59)
[2018-09-25] MEDS: MUPIROCIN 2% OINT 22 GM TUBE TOP SCH ×2 (09:22→20:59)
[2018-09-25] MEDS: amLODIPine 5 MG TABLET PO SCH (09:22)
[2018-09-25] MEDS: PANTOPRAZOLE 40 MG TABLET PO SCH (09:22)
[2018-09-25] MEDS: ASPIRIN EC 81 MG TABLET PO SCH (09:22)
[2018-09-25] MEDS: LOSARTAN 25 MG TABLET PO SCH (09:24)
[2018-09-25] MEDS: ENOXAPARIN 40 MG/0.4 ML SYRINGE SUBCUT SCH (09:41)
[2018-09-25] MEDS: LOSARTAN 50 MG TABLET PO SCH (14:50)
[2018-09-25] MEDS: ACETAMINOPHEN 325 MG TABLET PO PRN (19:40)
[2018-09-26 03:41] LABS: Basophils % 0.3 % (0.0-0.8); Eosinophils # 0.1 10*3/uL (0.0-0.87); Eosinophils % 1.8 % (0.00-10.9); Hemoglobin 11.3 GM/DL (14.0-18.0); Immature Granulocytes % 0.3 %; Immature Granulocytes Absolute 0.02 #; Lymphocytes # 1.6 10*3/uL (1.4-4.0); Lymphocytes % 23.3 % (21.2-54.2); Mean Corpuscular HGB Conc 30.5 GM/DL (32-36); Mean Corpuscular Hemoglobin 22 PG (27-34); Mean Platelet Volume 10.7 FL (9.6-12.0); Monocytes # 0.8 10*3/uL (0.11-0.8); Monocytes % 11.2 % (1.7-12.7); Neutrophils # 4.3 10*3/uL (1.4-7.4); Neutrophils % 63.1 % (38.7-73.9); Platelet Count 227 T/CUMM (130-400); Red Blood Count 5.21 MC/CUMM (3.8-5.5); Red Cell Distribution Width 16.1 % (9.3-17.3); White Blood Count 6.8 T/CUMM (4-12)
[2018-09-26 04:08] LABS: Calcium 8.5 MG/DL (8.5-10.1); Osmolality,Calculated 286.4 MOS/KG (273-304); Potassium 4.8 MMOL/L (3.5-5.1)
[2018-09-26] MEDS: INSULIN REGULAR 100 UNIT/ML SUBCUT SCH ×4 (09:00→22:19)
[2018-09-26] MEDS: glyBURIDE 2.5 MG TABLET PO SCH (09:01)
[2018-09-26] MEDS: FUROSEMIDE 40 MG/4 ML VIAL IV SCH ×2 (09:01→22:14)
[2018-09-26] MEDS: GABAPENTIN 300 MG CAPSULE PO SCH ×3 (09:02→22:19)
[2018-09-26] MEDS: LOSARTAN 50 MG TABLET PO SCH (09:02)
[2018-09-26] MEDS: PANTOPRAZOLE 40 MG TABLET PO SCH (09:02)
[2018-09-26] MEDS: ASPIRIN EC 81 MG TABLET PO SCH (10:02)
[2018-09-26] MEDS: ENOXAPARIN 40 MG/0.4 ML SYRINGE SUBCUT SCH (11:10)
[2018-09-26] MEDS: MUPIROCIN 2% OINT 22 GM TUBE TOP SCH ×2 (14:24→22:25)
[2018-09-27 03:33] LABS: Basophils % 0.4 % (0.0-0.8); Eosinophils # 0.1 10*3/uL (0.0-0.87); Eosinophils % 1.1 % (0.00-10.9); Hematocrit 39.8 VOL% (42.0-52.0); Hemoglobin 12.2 GM/DL (14.0-18.0); Immature Granulocytes % 0.4 %; Immature Granulocytes Absolute 0.03 #; Lymphocytes # 1.7 10*3/uL (1.4-4.0); Lymphocytes % 20.6 % (21.2-54.2); Mean Corpuscular HGB Conc 30.7 GM/DL (32-36); Mean Corpuscular Hemoglobin 22 PG (27-34); Mean Corpuscular Volume 71.2 FL (87-102); Mean Platelet Volume 10.7 FL (9.6-12.0); Monocytes # 0.7 10*3/uL (0.11-0.8); Monocytes % 8.9 % (1.7-12.7); Neutrophils # 5.5 10*3/uL (1.4-7.4); Neutrophils % 68.6 % (38.7-73.9); Platelet Count 255 T/CUMM (130-400); Red Blood Count 5.59 MC/CUMM (3.8-5.5); Red Cell Distribution Width 15.9 % (9.3-17.3)
[2018-09-27 03:58] LABS: Calcium 8.7 MG/DL (8.5-10.1); Osmolality,Calculated 287.5 MOS/KG (273-304); Potassium 4.7 MMOL/L (3.5-5.1)
[2018-09-27] MEDS: INSULIN REGULAR 100 UNIT/ML SUBCUT SCH ×4 (09:34→21:18)
[2018-09-27] MEDS: ASPIRIN EC 81 MG TABLET PO SCH (09:42)
[2018-09-27] MEDS: glyBURIDE 2.5 MG TABLET PO SCH (09:42)
[2018-09-27] MEDS: PANTOPRAZOLE 40 MG TABLET PO SCH (09:43)
[2018-09-27] MEDS: MUPIROCIN 2% OINT 22 GM TUBE TOP SCH ×2 (09:43→21:18)
[2018-09-27] MEDS: LOSARTAN 50 MG TABLET PO SCH (09:43)
[2018-09-27] MEDS: FUROSEMIDE 40 MG/4 ML VIAL IV SCH ×2 (09:43→21:18)
[2018-09-27] MEDS: GABAPENTIN 300 MG CAPSULE PO SCH ×3 (09:43→21:18)
[2018-09-27] MEDS: ENOXAPARIN 40 MG/0.4 ML SYRINGE SUBCUT SCH (09:44)
[2018-09-27] MEDS: CARVEDILOL 3.125 MG TABLET PO SCH (23:15)
[2018-09-28 03:46] LABS: Basophils % 0.2 % (0.0-0.8); Eosinophils # 0.1 10*3/uL (0.0-0.87); Eosinophils % 1.6 % (0.00-10.9); Hematocrit 38.6 VOL% (42.0-52.0); Hemoglobin 11.7 GM/DL (14.0-18.0); Immature Granulocytes % 0.2 %; Immature Granulocytes Absolute 0.02 #; Lymphocytes # 1.6 10*3/uL (1.4-4.0); Lymphocytes % 20.1 % (21.2-54.2); Mean Corpuscular HGB Conc 30.3 GM/DL (32-36); Mean Corpuscular Hemoglobin 21 PG (27-34); Mean Corpuscular Volume 70.7 FL (87-102); Mean Platelet Volume 10.9 FL (9.6-12.0); Monocytes # 0.9 10*3/uL (0.11-0.8); Monocytes % 10.8 % (1.7-12.7); Neutrophils # 5.4 10*3/uL (1.4-7.4); Neutrophils % 67.1 % (38.7-73.9); Platelet Count 243 T/CUMM (130-400); Red Blood Count 5.46 MC/CUMM (3.8-5.5); Red Cell Distribution Width 16.1 % (9.3-17.3); White Blood Count 8.1 T/CUMM (4-12)
[2018-09-28 04:09] LABS: Calcium 8.6 MG/DL (8.5-10.1); Osmolality,Calculated 287.7 MOS/KG (273-304); Potassium 4.9 MMOL/L (3.5-5.1)
[2018-09-28] MEDS: GABAPENTIN 300 MG CAPSULE PO SCH (09:02)
[2018-09-28] MEDS: glyBURIDE 2.5 MG TABLET PO SCH (09:02)
[2018-09-28] MEDS: ASPIRIN EC 81 MG TABLET PO SCH (09:02)
[2018-09-28] MEDS: INSULIN REGULAR 100 UNIT/ML SUBCUT SCH ×2 (09:02→12:29)
[2018-09-28] MEDS: CARVEDILOL 3.125 MG TABLET PO SCH (09:02)
[2018-09-28] MEDS: LOSARTAN 50 MG TABLET PO SCH (09:02)
[2018-09-28] MEDS: FUROSEMIDE 40 MG/4 ML VIAL IV SCH (09:03)
[2018-09-28] MEDS: PANTOPRAZOLE 40 MG TABLET PO SCH (09:03)
[2018-09-28] MEDS: ENOXAPARIN 40 MG/0.4 ML SYRINGE SUBCUT SCH (09:03)
[2018-09-28] MEDS ORDERED: CARVEDILOL 6.25 MG TABLET PO SCH (09:40)
[2018-09-28] MEDS ORDERED: ENOXAPARIN 30 MG/0.3 ML SYRINGE SUBCUT SCH (10:00)
[2018-09-28 11:53] VITALS: BP 142/76
[2018-09-28] MEDS: MUPIROCIN 2% OINT 22 GM TUBE TOP SCH (12:02)
[2018-09-28] MEDS ORDERED: FUROSEMIDE 40 MG TABLET PO SCH (16:00)
== END 2018-09-28 13:45 | disposition home health service (06) | DRG 194 ==
LOC: N.EDINP 08:10 → N.ED 08:10 → N.2W 11:14 → N.TELES 13:35
PROVIDERS: ADMIT Internal Medicine Cardiovascular Disease; ATTEND Internal Medicine Cardiovascular Disease

== ENCOUNTER 2018-12-16 07:52 | Observation (INO) ==
[2018-12-16 08:39] LABS: Basophils % 0.3 % (0.0-0.8); Eosinophils # 0.1 10*3/uL (0.0-0.87); Eosinophils % 0.9 % (0.00-10.9); Hematocrit 43.7 VOL% (42.0-52.0); Immature Granulocytes % 0.4 %; Immature Granulocytes Absolute 0.03 #; Lymphocytes # 1.2 10*3/uL (1.4-4.0); Lymphocytes % 15.9 % (21.2-54.2); Mean Corpuscular HGB Conc 30.2 GM/DL (32-36); Mean Corpuscular Hemoglobin 21 PG (27-34); Mean Corpuscular Volume 69.9 FL (87-102); Monocytes # 0.5 10*3/uL (0.11-0.8); Neutrophils # 5.9 10*3/uL (1.4-7.4); Neutrophils % 75.5 % (38.7-73.9); Platelet Count 209 T/CUMM (130-400); Red Blood Count 6.25 MC/CUMM (3.8-5.5); Red Cell Distribution Width 19.9 % (9.3-17.3); White Blood Count 7.8 T/CUMM (4-12)
[2018-12-16 08:41] LABS: Hemoglobin 13.2 GM/DL (14.0-18.0)
[2018-12-16 09:00] LABS: Alanine Aminotransferase 27 U/L (16-61); Albumin 2.5 G/DL (3.4-5.0); Alkaline Phosphatase 130 U/L (45-117); Aspartate Amino Transferase 19 U/L (0-37); Bilirubin,Total < 0.39 MG/DL (0.2-1.0); Blood Urea Nitrogen 29 MG/DL (7-18); Calcium 8.6 MG/DL (8.5-10.1); Glucose 255 MG/DL (74-106); Osmolality,Calculated 289.7 MOS/KG (273-304); Potassium 4.2 MMOL/L (3.5-5.1); Sodium 138 MMOL/L (136-145); Total Protein 7.5 G/DL (6.4-8.3)
[2018-12-16] MEDS ORDERED: ASPIRIN 325 MG TABLET PO STA (09:45)
[2018-12-16] MEDS ORDERED: PROMETHAZINE 25 MG/1 ML VIAL IM PRN (09:58)
[2018-12-16] MEDS ORDERED: ONDANSETRON 4 MG/2 ML VIAL IV PRN (09:58)
[2018-12-16] MEDS ORDERED: ACETAMINOPHEN 325 MG TABLET PO PRN (09:58)
[2018-12-16] MEDS ORDERED: POTASSIUM CHLORIDE RIDER 10 MEQ in PREMIX 1 EACH IV PRN (10:00)
[2018-12-16] MEDS ORDERED: POTASSIUM CHLORIDE 20 MEQ TABLET PO PRN (10:00)
[2018-12-16] MEDS ORDERED: FUROSEMIDE 40 MG/4 ML VIAL IV STA (10:00)
[2018-12-16] MEDS: PANTOPRAZOLE 40 MG TABLET PO SCH (10:28)
[2018-12-16] MEDS: ENOXAPARIN 40 MG/0.4 ML SYRINGE SUBCUT SCH (10:29)
[2018-12-16] MEDS: FUROSEMIDE 40 MG/4 ML VIAL IV SCH (15:13)
[2018-12-16] MEDS: GABAPENTIN 300 MG CAPSULE PO SCH ×2 (15:13→21:37)
[2018-12-16] MEDS ORDERED: DEXTROSE 50% 25 GM/50 ML VIAL IV PRN (15:58)
[2018-12-16] MEDS ORDERED: GLUCAGON 1 MG VIAL IM PRN (15:58)
[2018-12-16] MEDS: hydrALAZINE 20 MG/1 ML VIAL IV PRN ×2 (17:48→23:32)
[2018-12-16] MEDS: INSULIN LISPRO 100 UNIT/ML SUBCUT SCH ×2 (17:48→21:38)
[2018-12-16] MEDS: CARVEDILOL 6.25 MG TABLET PO SCH (21:37)
[2018-12-17 03:14] LABS: Barbiturates Screen,Urine Negative (Negative); Benzodiazepines Screen,Urine Negative (Negative); Cannabinoid Screen,Urine Negative (Negative); Opiate Screen,Urine Negative (Negative); Phencyclidine Screen,Urine Negative (Negative)
[2018-12-17 07:32] LABS: Basophils % 0.1 % (0.0-0.8); Eosinophils # 0.1 10*3/uL (0.0-0.87); Eosinophils % 1.2 % (0.00-10.9); Hematocrit 40.6 VOL% (42.0-52.0); Hemoglobin 12.4 GM/DL (14.0-18.0); Immature Granulocytes % 0.4 %; Immature Granulocytes Absolute 0.03 #; Lymphocytes # 1.1 10*3/uL (1.4-4.0); Lymphocytes % 15.8 % (21.2-54.2); Mean Corpuscular HGB Conc 30.5 GM/DL (32-36); Mean Corpuscular Hemoglobin 21 PG (27-34); Mean Corpuscular Volume 68.6 FL (87-102); Monocytes # 0.5 10*3/uL (0.11-0.8); Monocytes % 7.8 % (1.7-12.7); Neutrophils # 5.2 10*3/uL (1.4-7.4); Neutrophils % 74.7 % (38.7-73.9); Platelet Count 197 T/CUMM (130-400); Red Blood Count 5.92 MC/CUMM (3.8-5.5); Red Cell Distribution Width 19.1 % (9.3-17.3); White Blood Count 6.9 T/CUMM (4-12)
[2018-12-17 07:50] LABS: Albumin 2.2 G/DL (3.4-5.0); Bilirubin,Total 0.5 MG/DL (0.2-1.0); Calcium 8.4 MG/DL (8.5-10.1); Osmolality,Calculated 288.5 MOS/KG (273-304); Risk Ratio 2.71; Thyroid Stimulating Hormone 3.4 uIU/ml (0.358-3.74); Total Protein 6.7 G/DL (6.4-8.3); VLDL CHOLESTEROL 9.4 MG/DL
[2018-12-17 08:00] LABS: Anisocytosis Slight; Platelet Estimate Normal; Target Cells 1+
[2018-12-17] MEDS ORDERED: glyBURIDE 2.5 MG TABLET PO SCH (08:00)
[2018-12-17] MEDS ORDERED: LOSARTAN 50 MG TABLET PO SCH (09:00)
[2018-12-17] MEDS ORDERED: ASPIRIN EC 81 MG TABLET PO SCH (09:00)
[2018-12-17] MEDS: FUROSEMIDE 40 MG/4 ML VIAL IV SCH ×2 (09:40→16:57)
[2018-12-17] MEDS: CARVEDILOL 6.25 MG TABLET PO SCH (09:41)
[2018-12-17] MEDS: GABAPENTIN 300 MG CAPSULE PO SCH ×2 (09:41→16:56)
[2018-12-17] MEDS: PANTOPRAZOLE 40 MG TABLET PO SCH (09:41)
[2018-12-17] MEDS: ENOXAPARIN 40 MG/0.4 ML SYRINGE SUBCUT SCH (09:42)
[2018-12-17] MEDS: INSULIN LISPRO 100 UNIT/ML SUBCUT SCH ×2 (11:32→16:56)
[2018-12-17 12:44] VITALS: BP 163/138
== END 2018-12-17 16:07 | disposition home health service (06) ==
LOC: N.EDINP 07:52 → N.ED 07:52 → N.EDINP 11:22 → N.5E 11:41
PROVIDERS: ADMIT Internal Medicine; ATTEND Internal Medicine

== ENCOUNTER 2019-06-17 13:59 | Observation (INO) ==
[2019-06-17] MEDS ORDERED: ONDANSETRON 4 MG/2 ML VIAL IV STA (14:16)
[2019-06-17] MEDS ORDERED: ASPIRIN 325 MG TABLET PO STA (14:16)
[2019-06-17] MEDS ORDERED: NITROGLYCERIN 2% OINT 1 INCH/GM PACK TOP STA (14:16)
[2019-06-17] MEDS ORDERED: MORPHINE 4 MG/1 ML VIAL IV STA (14:16)
[2019-06-17] MEDS ORDERED: ENOXAPARIN 100 MG/ML SYRINGE SUBCUT STA (14:16)
[2019-06-17 14:36] LABS: Basophils % 0.3 % (0.0-0.8); Eosinophils % 0.7 % (0.00-10.9); Hematocrit 37.7 VOL% (42.0-52.0); Hemoglobin 11.5 GM/DL (14.0-18.0); Immature Granulocytes % 0.3 %; Immature Granulocytes Absolute 0.02 #; Lymphocytes # 1.3 10*3/uL (1.4-4.0); Lymphocytes % 22.2 % (21.2-54.2); Mean Corpuscular HGB Conc 30.5 GM/DL (32-36); Mean Corpuscular Volume 70.1 FL (87-102); Mean Platelet Volume 10.4 FL (9.6-12.0); Monocytes % 7.2 % (1.7-12.7); Neutrophils % 69.3 % (38.7-73.9); Platelet Count 193 T/CUMM (130-400); Red Blood Count 5.38 MC/CUMM (3.8-5.5); Red Cell Distribution Width 20.6 % (9.3-17.3); White Blood Count 5.9 T/CUMM (4-12)
[2019-06-17 14:53] LABS: Albumin 2.5 G/DL (3.4-5.0); Bilirubin,Total 0.6 MG/DL (0.2-1.0); Calcium 8.6 MG/DL (8.5-10.1); Osmolality,Calculated 282.3 MOS/KG (273-304); Total Protein 6.5 G/DL (6.4-8.3)
[2019-06-17 14:54] LABS: PT Patient Result 10.8 SECS; Partial Thromboplastin Time 27.9 SECS (0-40)
[2019-06-17 15:42] LABS: Apearance,Urine CLEAR (Clear); Bacteria,Urine Occasional /HPF (Few); Bilirubin,Urine Negative (Negative); Blood, Urine Small mg/dL (Negative); Glucose,Urine (UA) 50 mg/dL (Negative); Hyaline Casts,Urine 4 /LPF (0-3); Ketones,Urine 5 mg/dL (Negative); Mucus,Urine Occasional /LPF (Occasional); Nitrite,Urine Negative (Negative); Protein,Urine >=500 MG/DL; RBC,Urine 1 /HPF (0-4); Squamous Epithelial Cell,Urine Occasional /HPF (0-10); Urine Color Yellow (Yellow); Urine Specific Gravity 1.018 (1.001-1.035); Urine Urobilinogen < 2.0 EU/DL (0.2-1.0); WBC,Urine 2 /HPF (0-6)
[2019-06-17 16:08] LABS: Barbiturates Screen,Urine Negative (Negative); Benzodiazepines Screen,Urine Negative (Negative); Cannabinoid Screen,Urine Negative (Negative); Opiate Screen,Urine Positive (Negative); Phencyclidine Screen,Urine Negative (Negative)
[2019-06-17] MEDS ORDERED: MAGNESIUM SULF RIDER 2 GM in PREMIX 1 EACH IV PRN (17:22)
[2019-06-17] MEDS ORDERED: GLUCAGON 1 MG VIAL IM PRN (17:22)
[2019-06-17] MEDS ORDERED: DEXTROSE 50% 25 GM/50 ML VIAL IV PRN (17:22)
[2019-06-17] MEDS ORDERED: MAGNESIUM SULF RIDER 4 GM in PREMIX 1 EACH IV PRN (17:22)
[2019-06-17] MEDS: FUROSEMIDE 40 MG/4 ML VIAL IV SCH (18:46)
[2019-06-17] MEDS: HEPARIN 5,000 UNIT/1 ML VIAL SUBCUT SCH (18:46)
[2019-06-17] MEDS: INSULIN REGULAR 100 UNIT/ML SUBCUT SCH (20:24)
[2019-06-17] MEDS: GABAPENTIN 300 MG CAPSULE PO SCH (21:17)
[2019-06-17] MEDS: INSULIN LISPRO 100 UNIT/ML SUBCUT SCH (21:17)
[2019-06-17] MEDS: hydrALAZINE 25 MG TABLET PO SCH (21:17)
[2019-06-18] MEDS: HEPARIN 5,000 UNIT/1 ML VIAL SUBCUT SCH ×2 (01:40→08:31)
[2019-06-18 07:24] LABS: Basophils % 0.2 % (0.0-0.8); Eosinophils % 0.8 % (0.00-10.9); Hemoglobin 11.1 GM/DL (14.0-18.0); Immature Granulocytes % 0.2 %; Immature Granulocytes Absolute 0.01 #; Lymphocytes # 1.3 10*3/uL (1.4-4.0); Lymphocytes % 25.7 % (21.2-54.2); Monocytes % 9.1 % (1.7-12.7); Platelet Count 170 T/CUMM (130-400); Red Blood Count 5.21 MC/CUMM (3.8-5.5); Red Cell Distribution Width 20.6 % (9.3-17.3); White Blood Count 4.9 T/CUMM (4-12)
[2019-06-18 07:45] LABS: Hypochromasia 1+; Microcytosis Slight; Platelet Estimate Adequate
[2019-06-18] MEDS: INSULIN REGULAR 100 UNIT/ML SUBCUT SCH ×2 (07:47→12:12)
[2019-06-18 07:57] LABS: Risk Ratio 2.7; VLDL CHOLESTEROL 9.6 MG/DL
[2019-06-18] MEDS ORDERED: glyBURIDE 2.5 MG TABLET PO SCH (08:00)
[2019-06-18 08:06] LABS: Calcium 8.8 MG/DL (8.5-10.1); Osmolality,Calculated 287.1 MOS/KG (273-304); Thyroid Stimulating Hormone 2.8 uIU/ml (0.358-3.74)
[2019-06-18] MEDS: hydrALAZINE 25 MG TABLET PO SCH ×2 (08:24→15:07)
[2019-06-18] MEDS: GABAPENTIN 300 MG CAPSULE PO SCH ×2 (08:24→15:08)
[2019-06-18] MEDS: FUROSEMIDE 40 MG/4 ML VIAL IV SCH ×2 (08:26→15:08)
[2019-06-18] MEDS: INSULIN LISPRO 100 UNIT/ML SUBCUT SCH (08:26)
[2019-06-18] MEDS ORDERED: POTASSIUM CHLORIDE 20 MEQ TABLET PO SCH (09:00)
[2019-06-18 11:53] VITALS: BP 129/67
[2019-06-18] MEDS ORDERED: CARVEDILOL 12.5 MG TABLET PO SCH (21:00)
[2019-06-19] MEDS ORDERED: ASPIRIN EC 81 MG TABLET PO SCH (09:00)
== END 2019-06-18 16:54 | disposition home or self-care (01) ==
LOC: EDUNIT# → N.ED 13:59 → N.EDINP 13:59 → SUATTDRO 16:48 → N.EDINP 18:14 → N.5E 18:23
PROVIDERS: ADMIT Internal Medicine; ATTEND Family Medicine

== ENCOUNTER 2019-06-29 16:56 | Inpatient (IN) ==
[2019-06-29 17:18] LABS: Basophils % 0.1 % (0.0-0.8); Eosinophils # 0.1 10*3/uL (0.0-0.87); Eosinophils % 0.7 % (0.00-10.9); Hematocrit 38.1 VOL% (42.0-52.0); Hemoglobin 11.4 GM/DL (14.0-18.0); Immature Granulocytes % 0.3 %; Immature Granulocytes Absolute 0.02 #; Lymphocytes # 1.2 10*3/uL (1.4-4.0); Mean Corpuscular HGB Conc 29.9 GM/DL (32-36); Mean Corpuscular Volume 71.2 FL (87-102); Monocytes % 7.1 % (1.7-12.7); Neutrophils % 75.8 % (38.7-73.9); Platelet Count 168 T/CUMM (130-400); Red Blood Count 5.35 MC/CUMM (3.8-5.5); White Blood Count 7.4 T/CUMM (4-12)
[2019-06-29 17:52] LABS: Albumin 2.7 G/DL (3.4-5.0); Bilirubin,Total 0.4 MG/DL (0.2-1.0); Calcium 8.8 MG/DL (8.5-10.1); Osmolality,Calculated 297.8 MOS/KG (273-304); Total Protein 6.6 G/DL (6.4-8.3)
[2019-06-29] MEDS ORDERED: KETOROLAC 30 MG/1 ML VIAL IV STA (19:26)
[2019-06-29] MEDS ORDERED: METHOCARBAMOL 1,000 MG/10 ML VIAL IV STA (19:26)
[2019-06-29 19:53] LABS: Barbiturates Screen,Urine Negative (Negative); Benzodiazepines Screen,Urine Negative (Negative); Cannabinoid Screen,Urine Negative (Negative); Opiate Screen,Urine Negative (Negative); Phencyclidine Screen,Urine Negative (Negative)
[2019-06-29] MEDS ORDERED: FUROSEMIDE 40 MG/4 ML VIAL IV STA (20:50)
[2019-06-29] MEDS ORDERED: FUROSEMIDE 100 MG/10 ML VIAL ONE (21:10)
[2019-06-29] MEDS ORDERED: DEXTROSE 50% 25 GM/50 ML VIAL IV PRN (21:20)
[2019-06-29] MEDS ORDERED: ZALEPLON 5 MG CAPSULE PO PRN (21:20)
[2019-06-29] MEDS ORDERED: BISACODYL 5 MG TABLET PO PRN (21:20)
[2019-06-29] MEDS ORDERED: ACETAMINOPHEN 325 MG TABLET PO PRN (21:20)
[2019-06-29] MEDS ORDERED: MORPHINE 4 MG/1 ML VIAL IV PRN (21:20)
[2019-06-29] MEDS ORDERED: diphenhydrAMINE CAP 25 MG CAPSULE PO PRN (21:20)
[2019-06-29] MEDS ORDERED: ONDANSETRON 4 MG/2 ML VIAL IV PRN (21:20)
[2019-06-29] MEDS ORDERED: NICOTINE 21 MG/24 HR PATCH TRANSDERM PRN (21:20)
[2019-06-29] MEDS ORDERED: GLUCAGON 1 MG VIAL IM PRN (21:20)
[2019-06-29] MEDS ORDERED: NITROGLYCERIN SL 0.4 MG TABLET SL PRN (21:20)
[2019-06-29] MEDS ORDERED: hydrALAZINE 20 MG/1 ML VIAL IV PRN (21:20)
[2019-06-29] MEDS ORDERED: guaiFENesin/DM ER 600-30 MG TABLET PO PRN (21:20)
[2019-06-29 22:18] LABS: Risk Ratio 2.51; VLDL CHOLESTEROL 11.6 MG/DL
[2019-06-30] MEDS: CARVEDILOL 12.5 MG TABLET PO SCH ×3 (00:46→22:20)
[2019-06-30] MEDS: ASPIRIN EC 81 MG TABLET PO SCH ×3 (00:46→22:20)
[2019-06-30] MEDS: HEPARIN DRIP 25,000 UNITS/500 ML PREMIX IV SCH ×2 (00:52→07:42)
[2019-06-30] MEDS: INSULIN LISPRO 100 UNIT/ML SUBCUT SCH ×3 (02:38→17:05)
[2019-06-30 03:36] LABS: Albumin 2.7 G/DL (3.4-5.0); Bilirubin,Total 0.5 MG/DL (0.2-1.0); Calcium 9.2 MG/DL (8.5-10.1); Osmolality,Calculated 295.1 MOS/KG (273-304); Total Protein 7.1 G/DL (6.4-8.3)
[2019-06-30] MEDS: INSULIN REGULAR 100 UNIT/ML SUBCUT SCH ×4 (09:16→22:22)
[2019-06-30] MEDS: hydrALAZINE 25 MG TABLET PO SCH ×3 (09:17→22:20)
[2019-06-30] MEDS: POTASSIUM CHLORIDE 20 MEQ TABLET PO SCH (09:17)
[2019-06-30] MEDS: PANTOPRAZOLE 40 MG TABLET PO SCH (09:18)
[2019-06-30 10:35] LABS: Partial Thromboplastin Time 167.6 SECS (0-40)
[2019-06-30] MEDS: FUROSEMIDE 40 MG/4 ML VIAL IV SCH ×2 (11:47→16:27)
[2019-06-30] MEDS: ISOSORBIDE MONONITRATE 30 MG TABLET PO SCH (13:16)
[2019-07-01 04:28] LABS: Basophils % 0.3 % (0.0-0.8); Eosinophils # 0.1 10*3/uL (0.0-0.87); Eosinophils % 1.8 % (0.00-10.9); Hematocrit 34.7 VOL% (42.0-52.0); Hemoglobin 10.5 GM/DL (14.0-18.0); Immature Granulocytes % 0.5 %; Immature Granulocytes Absolute 0.03 #; Lymphocytes # 1.4 10*3/uL (1.4-4.0); Lymphocytes % 20.6 % (21.2-54.2); Mean Corpuscular HGB Conc 30.3 GM/DL (32-36); Mean Corpuscular Volume 70.4 FL (87-102); Monocytes % 8.4 % (1.7-12.7); Neutrophils % 68.4 % (38.7-73.9); Platelet Count 169 T/CUMM (130-400); Red Blood Count 4.93 MC/CUMM (3.8-5.5); Red Cell Distribution Width 19.9 % (9.3-17.3); White Blood Count 6.7 T/CUMM (4-12)
[2019-07-01 04:46] LABS: Calcium 8.7 MG/DL (8.5-10.1); Osmolality,Calculated 296.3 MOS/KG (273-304)
[2019-07-01 04:51] LABS: Hypochromasia 1+; Microcytosis Slight; Platelet Estimate Adequate
[2019-07-01] MEDS: FUROSEMIDE 40 MG/4 ML VIAL IV SCH (07:50)
[2019-07-01] MEDS: INSULIN REGULAR 100 UNIT/ML SUBCUT SCH ×2 (09:27→12:24)
[2019-07-01] MEDS: hydrALAZINE 25 MG TABLET PO SCH (09:27)
[2019-07-01] MEDS: POTASSIUM CHLORIDE 20 MEQ TABLET PO SCH (09:27)
[2019-07-01] MEDS: PANTOPRAZOLE 40 MG TABLET PO SCH (09:27)
[2019-07-01] MEDS: ISOSORBIDE MONONITRATE 30 MG TABLET PO SCH (09:27)
[2019-07-01] MEDS: CARVEDILOL 12.5 MG TABLET PO SCH (09:27)
[2019-07-01] MEDS: ASPIRIN EC 81 MG TABLET PO SCH (09:27)
[2019-07-01] MEDS: INSULIN LISPRO 100 UNIT/ML SUBCUT SCH (09:28)
[2019-07-01 11:24] LABS: PT Patient Result 10.6 SECS (9.6-12.2)
[2019-07-01 11:28] LABS: Partial Thromboplastin Time 29.2 SECS (20.8-36.0)
[2019-07-01 12:36] VITALS: BP 140/75
== END 2019-07-01 14:33 | disposition home or self-care (01) | DRG 194 ==
LOC: EDBD → EDUNIT# → N.ED 16:56 → N.EDINP 16:56 → N.TELEN 22:22
PROVIDERS: ADMIT Hospitalist; ATTEND Hospitalist

== ENCOUNTER 2019-10-28 16:04 | Inpatient (IN) ==
[2019-10-28 17:20] LABS: Basophils % 0.4 % (0.0-0.8); Eosinophils # 0.1 10*3/uL (0.0-0.87); Eosinophils % 0.6 % (0.00-10.9); Hematocrit 43.9 VOL% (42.0-52.0); Immature Granulocytes % 0.4 %; Immature Granulocytes Absolute 0.03 #; Lymphocytes # 1.5 10*3/uL (1.4-4.0); Lymphocytes % 17.9 % (21.2-54.2); Mean Corpuscular HGB Conc 31.9 GM/DL (32-36); Mean Corpuscular Volume 68.7 FL (87-102); Monocytes % 9.3 % (1.7-12.7); Neutrophils % 71.4 % (38.7-73.9); Platelet Count 227 T/CUMM (130-400); Red Blood Count 6.39 MC/CUMM (3.8-5.5); Red Cell Distribution Width 19.6 % (9.3-17.3); White Blood Count 8.1 T/CUMM (4-12)
[2019-10-28 17:46] LABS: Albumin 2.8 G/DL (3.4-5.0); Bilirubin,Total 1.4 MG/DL (0.2-1.0); Calcium 9.5 MG/DL (8.5-10.1); Osmolality,Calculated 284.8 MOS/KG (273-304); Total Protein 8.2 G/DL (6.4-8.3)
[2019-10-28] MEDS ORDERED: FUROSEMIDE 100 MG/10 ML VIAL IV STA (18:02)
[2019-10-28] MEDS ORDERED: ACETAMINOPHEN 500 MG TABLET PO STA (18:25)
[2019-10-28] MEDS ORDERED: MAGNESIUM SULF RIDER 4 GM in PREMIX 1 EACH IV PRN (18:36)
[2019-10-28] MEDS ORDERED: ONDANSETRON 4 MG/2 ML VIAL IV PRN (18:36)
[2019-10-28] MEDS ORDERED: MAGNESIUM SULF RIDER 2 GM in PREMIX 1 EACH IV PRN (18:36)
[2019-10-28 18:59] LABS: Apearance,Urine Slightly Hazy (Clear); Bacteria,Urine Occasional /HPF (Few); Bilirubin,Urine Negative (Negative); Blood, Urine Moderate mg/dL (Negative); Glucose,Urine (UA) Negative (Negative); Hyaline Casts,Urine 35 /LPF (0-3); Ketones,Urine Negative (Negative); Mucus,Urine Occasional /LPF (Occasional); Nitrite,Urine Negative (Negative); Protein,Urine >=500 MG/DL; RBC,Urine 3 /HPF (0-4); Squamous Epithelial Cell,Urine Occasional /HPF (0-10); Urine Color Amber (Yellow); Urine Specific Gravity 1.023 (1.001-1.035); WBC,Urine 2 /HPF (0-6)
[2019-10-28] MEDS ORDERED: GLUCAGON 1 MG VIAL IM PRN (19:56)
[2019-10-28] MEDS ORDERED: DEXTROSE 10% 1,000 ML BAG IV PRN (19:56)
[2019-10-28] MEDS: ASPIRIN EC 81 MG TABLET PO SCH (20:23)
[2019-10-28] MEDS: hydrALAZINE 25 MG TABLET PO SCH (20:23)
[2019-10-28] MEDS: carvediloL 12.5 MG TABLET PO SCH (20:23)
[2019-10-28] MEDS: ENOXAPARIN 40 MG/0.4 ML SYRINGE SUBCUT SCH (20:26)
[2019-10-29] MEDS: ACETAMINOPHEN 325 MG TABLET PO PRN (00:02)
[2019-10-29] MEDS ORDERED: FUROSEMIDE 40 MG/4 ML VIAL IV SCH ×2 (08:00)
[2019-10-29 08:06] LABS: Basophils % 0.1 % (0.0-0.8); Eosinophils % 0.4 % (0.00-10.9); Hematocrit 38.2 VOL% (42.0-52.0); Hemoglobin 12.3 GM/DL (14.0-18.0); Immature Granulocytes % 0.1 %; Immature Granulocytes Absolute 0.01 #; Lymphocytes # 1.1 10*3/uL (1.4-4.0); Lymphocytes % 14.8 % (21.2-54.2); Mean Corpuscular HGB Conc 32.2 GM/DL (32-36); Mean Corpuscular Volume 67.7 FL (87-102); NRBC # 0.02 10*3/uL; Neutrophils % 71.6 % (38.7-73.9); Platelet Count 178 T/CUMM (130-400); Red Blood Count 5.64 MC/CUMM (3.8-5.5); Red Cell Distribution Width 18.5 % (9.3-17.3); White Blood Count 7.2 T/CUMM (4-12)
[2019-10-29 08:31] LABS: Albumin 2.3 G/DL (3.4-5.0); Bilirubin,Total 1.2 MG/DL (0.2-1.0); Calcium 8.9 MG/DL (8.5-10.1); Hypochromasia 1+; Microcytosis 1+; Osmolality,Calculated 290.5 MOS/KG (273-304); Target Cells Few
[2019-10-29 08:32] LABS: Ovalocytes Slight; Platelet Estimate Adequate
[2019-10-29] MEDS ORDERED: INFLUENZA VIRUS VACCINE 0.5 ML SYRINGE IM ONE (09:00)
[2019-10-29] MEDS: INSULIN REGULAR 100 UNIT/ML SUBCUT SCH ×2 (09:12→17:37)
[2019-10-29] MEDS: ASPIRIN EC 81 MG TABLET PO SCH ×2 (09:12→20:41)
[2019-10-29] MEDS: traMADol 50 MG TABLET PO PRN ×2 (09:12→17:44)
[2019-10-29] MEDS: carvediloL 12.5 MG TABLET PO SCH ×2 (09:13→20:40)
[2019-10-29] MEDS: PANTOPRAZOLE 40 MG TABLET PO SCH (09:13)
[2019-10-29] MEDS: hydrALAZINE 25 MG TABLET PO SCH ×4 (09:13→20:40)
[2019-10-29] MEDS: ISOSORBIDE MONONITRATE 30 MG TABLET PO SCH (12:04)
[2019-10-29] MEDS: FUROSEMIDE 40 MG TABLET PO SCH ×2 (14:48→16:48)
[2019-10-29] MEDS: ENOXAPARIN 40 MG/0.4 ML SYRINGE SUBCUT SCH (20:40)
[2019-10-29] MEDS: DULoxetine 30 MG CAPSULE PO SCH (20:41)
[2019-10-30] MEDS: traMADol 50 MG TABLET PO PRN ×2 (00:59→21:16)
[2019-10-30 04:51] LABS: Basophils % 0.2 % (0.0-0.8); Eosinophils % 0.2 % (0.00-10.9); Hematocrit 37.5 VOL% (42.0-52.0); Hemoglobin 11.8 GM/DL (14.0-18.0); Immature Granulocytes % 0.6 %; Immature Granulocytes Absolute 0.06 #; Lymphocytes # 1.3 10*3/uL (1.4-4.0); Mean Corpuscular HGB Conc 31.5 GM/DL (32-36); Mean Corpuscular Volume 68.6 FL (87-102); Monocytes % 11.1 % (1.7-12.7); NRBC # 0.02 10*3/uL; Neutrophils % 74.9 % (38.7-73.9); Platelet Count 182 T/CUMM (130-400); Red Blood Count 5.47 MC/CUMM (3.8-5.5); Red Cell Distribution Width 18.3 % (9.3-17.3); White Blood Count 10.3 T/CUMM (4-12)
[2019-10-30 05:12] LABS: Calcium 8.8 MG/DL (8.5-10.1); Osmolality,Calculated 291.8 MOS/KG (273-304)
[2019-10-30 05:19] LABS: % Iron Saturation 6.2 % (18-50); Ferritin 188.2 ng/ml (26-388)
[2019-10-30 05:33] LABS: Anisocytosis 2+; Target Cells 2+
[2019-10-30 05:34] LABS: Polychromasia Slight
[2019-10-30 05:35] LABS: Hypochromasia 1+; Microcytosis 1+; Ovalocytes Slight; Platelet Estimate Normal
[2019-10-30 05:50] LABS: Sedimentation Rate-Westergren 36 MM/HR (0-15)
[2019-10-30 06:46] LABS: Parathyroid Hormone Intact 403.9 PG/ML (18.4-80.1)
[2019-10-30 06:54] LABS: Folate 3.3 NG/ML (5.4-24.0); Vitamin B12 1420 PG/ML (211-911)
[2019-10-30] MEDS: INSULIN REGULAR 100 UNIT/ML SUBCUT SCH ×2 (07:57→17:25)
[2019-10-30] MEDS: carvediloL 12.5 MG TABLET PO SCH (10:19)
[2019-10-30] MEDS: ASPIRIN EC 81 MG TABLET PO SCH ×2 (10:19→21:15)
[2019-10-30] MEDS: hydrALAZINE 25 MG TABLET PO SCH ×3 (10:19→21:15)
[2019-10-30] MEDS: PANTOPRAZOLE 40 MG TABLET PO SCH (10:19)
[2019-10-30] MEDS: FUROSEMIDE 40 MG TABLET PO SCH (10:19)
[2019-10-30] MEDS: ISOSORBIDE MONONITRATE 30 MG TABLET PO SCH (10:19)
[2019-10-30] MEDS: calcitrioL 0.25 MCG CAPSULE PO SCH (13:43)
[2019-10-30] MEDS: FOLIC ACID 1 MG TABLET PO SCH (13:43)
[2019-10-30] MEDS: ISOSORBIDE DINITRATE 20 MG TABLET PO SCH ×2 (15:17→21:15)
[2019-10-30 16:12] LABS: Barbiturates Screen,Urine Negative (Negative); Benzodiazepines Screen,Urine Negative (Negative); Cannabinoid Screen,Urine Negative (Negative); Opiate Screen,Urine Negative (Negative); Phencyclidine Screen,Urine Negative (Negative)
[2019-10-30] MEDS: ACETAMINOPHEN 325 MG TABLET PO PRN (17:35)
[2019-10-30] MEDS: DULoxetine 30 MG CAPSULE PO SCH (21:15)
[2019-10-30] MEDS: carvediloL 3.125 MG TABLET PO SCH (21:15)
[2019-10-30] MEDS: ENOXAPARIN 40 MG/0.4 ML SYRINGE SUBCUT SCH (21:16)
[2019-10-31] MEDS: INSULIN REGULAR 100 UNIT/ML SUBCUT SCH ×2 (07:44→16:51)
[2019-10-31] MEDS: calcitrioL 0.25 MCG CAPSULE PO SCH (08:46)
[2019-10-31] MEDS: carvediloL 3.125 MG TABLET PO SCH ×2 (08:46→20:31)
[2019-10-31] MEDS: ISOSORBIDE DINITRATE 20 MG TABLET PO SCH ×3 (08:46→20:33)
[2019-10-31] MEDS: hydrALAZINE 25 MG TABLET PO SCH ×3 (08:46→20:31)
[2019-10-31] MEDS: FOLIC ACID 1 MG TABLET PO SCH (08:46)
[2019-10-31] MEDS: PANTOPRAZOLE 40 MG TABLET PO SCH (08:46)
[2019-10-31] MEDS: ASPIRIN EC 81 MG TABLET PO SCH ×2 (08:46→20:33)
[2019-10-31] MEDS ORDERED: IRON SUCROSE 300 MG in SODIUM CHLORIDE 0.9% 100 ML IV ONE (09:00)
[2019-10-31] MEDS ORDERED: FUROSEMIDE 40 MG/4 ML VIAL IV ONE (15:41)
[2019-10-31] MEDS: traMADol 50 MG TABLET PO PRN ×2 (17:00→20:31)
[2019-10-31] MEDS: ENOXAPARIN 40 MG/0.4 ML SYRINGE SUBCUT SCH (20:31)
[2019-10-31] MEDS: DULoxetine 30 MG CAPSULE PO SCH (20:31)
[2019-10-31] MEDS: allopurinoL 100 MG TABLET PO SCH (20:42)
[2019-11-01 05:23] LABS: Basophils % 0.1 % (0.0-0.8); Eosinophils % 0.1 % (0.00-10.9); Hematocrit 38.3 VOL% (42.0-52.0); Hemoglobin 12.2 GM/DL (14.0-18.0); Immature Granulocytes % 0.8 %; Immature Granulocytes Absolute 0.13 #; Lymphocytes # 1.2 10*3/uL (1.4-4.0); Lymphocytes % 6.9 % (21.2-54.2); Mean Corpuscular HGB Conc 31.9 GM/DL (32-36); Mean Corpuscular Volume 68.6 FL (87-102); Monocytes % 8.6 % (1.7-12.7); NRBC # 0.04 10*3/uL; Neutrophils % 83.5 % (38.7-73.9); Platelet Count 189 T/CUMM (130-400); Red Blood Count 5.58 MC/CUMM (3.8-5.5); Red Cell Distribution Width 18.1 % (9.3-17.3); White Blood Count 16.7 T/CUMM (4-12)
[2019-11-01 05:48] LABS: Calcium 8.9 MG/DL (8.5-10.1)
[2019-11-01 05:55] LABS: Anisocytosis 1+; Microcytosis 1+; Platelet Estimate Normal; Poikilocytosis 1+; Target Cells 1+
[2019-11-01] MEDS: INSULIN REGULAR 100 UNIT/ML SUBCUT SCH ×2 (08:30→16:35)
[2019-11-01] MEDS: hydrALAZINE 25 MG TABLET PO SCH ×2 (08:59→20:35)
[2019-11-01] MEDS: PANTOPRAZOLE 40 MG TABLET PO SCH (08:59)
[2019-11-01] MEDS: FOLIC ACID 1 MG TABLET PO SCH (08:59)
[2019-11-01] MEDS: ISOSORBIDE DINITRATE 20 MG TABLET PO SCH ×3 (08:59→20:35)
[2019-11-01] MEDS: carvediloL 3.125 MG TABLET PO SCH (08:59)
[2019-11-01] MEDS: ASPIRIN EC 81 MG TABLET PO SCH ×2 (08:59→20:34)
[2019-11-01] MEDS: calcitrioL 0.25 MCG CAPSULE PO SCH (09:00)
[2019-11-01] MEDS: SODIUM CHLORIDE 0.45% 1,000 ML IV SCH (12:21)
[2019-11-01] MEDS: traMADol 50 MG TABLET PO PRN ×2 (12:31→20:35)
[2019-11-01] MEDS: ACETIC ACID 0.25% IRRIGATION 1,000 ML BOTTLE IRRIG SCH (16:22)
[2019-11-01] MEDS: ENOXAPARIN 40 MG/0.4 ML SYRINGE SUBCUT SCH (20:34)
[2019-11-01] MEDS: METOPROLOL SUCCINATE XL 25 MG TABLET PO SCH (20:35)
[2019-11-01] MEDS: allopurinoL 100 MG TABLET PO SCH (20:35)
[2019-11-01] MEDS: DULoxetine 30 MG CAPSULE PO SCH (20:35)
[2019-11-02] MEDS: SODIUM CHLORIDE 0.45% 1,000 ML IV SCH ×2 (07:38)
[2019-11-02] MEDS: INSULIN REGULAR 100 UNIT/ML SUBCUT SCH ×2 (08:19→15:44)
[2019-11-02] MEDS: hydrALAZINE 25 MG TABLET PO SCH (09:02)
[2019-11-02] MEDS: calcitrioL 0.25 MCG CAPSULE PO SCH (09:02)
[2019-11-02] MEDS: METOPROLOL SUCCINATE XL 25 MG TABLET PO SCH (09:02)
[2019-11-02] MEDS: ASPIRIN EC 81 MG TABLET PO SCH (09:02)
[2019-11-02] MEDS: FOLIC ACID 1 MG TABLET PO SCH (09:02)
[2019-11-02] MEDS: ISOSORBIDE DINITRATE 20 MG TABLET PO SCH ×2 (09:03→14:37)
[2019-11-02] MEDS: PANTOPRAZOLE 40 MG TABLET PO SCH (09:03)
[2019-11-02] MEDS: traMADol 50 MG TABLET PO PRN (09:03)
[2019-11-02 09:04] LABS: Calcium 8.9 MG/DL (8.5-10.1); Osmolality,Calculated 294.8 MOS/KG (273-304)
[2019-11-02] MEDS: ACETIC ACID 0.25% IRRIGATION 1,000 ML BOTTLE IRRIG SCH (09:04)
[2019-11-02 09:21] LABS: Apearance,Urine CLOUDY (Clear); Bacteria,Urine Occasional /HPF (Few); Bilirubin,Urine Negative (Negative); Blood, Urine Moderate mg/dL (Negative); Glucose,Urine (UA) Negative (Negative); Hyaline Casts,Urine 1 /LPF (0-3); Ketones,Urine Negative (Negative); Mucus,Urine Occasional /LPF (Occasional); Nitrite,Urine Negative (Negative); Protein,Urine 100 MG/DL; RBC,Urine 29 /HPF (0-4); Squamous Epithelial Cell,Urine Occasional /HPF (0-10); Urine Color Amber (Yellow); Urine Specific Gravity 1.015 (1.001-1.035); WBC,Urine 117 /HPF (0-6)
[2019-11-02] MEDS ORDERED: traMADol 50 MG TABLET PO PRN (16:12)
[2019-11-02] MEDS: LEVOFLOXACIN INJ 500 MG in PREMIX 1 EACH IV SCH (18:06)
[2019-11-02 20:40] LABS: ABG Base Excess -6.6 MMOL/L (-2.5-2.5); ABG Oxygen Saturation 93.3 % (95-100); ABG PCO2 39.3 MM HG (35-48); ABG PH 7.302 (7.35-7.45); ABG PO2 66.1 MM HG (80-95); ABG TCO2 17.3 MMOL/L (23-27); Allen Test Positive; Pt O2 Delivery Device Other
[2019-11-02 21:25] LABS: Albumin 2.2 G/DL (3.4-5.0); Bilirubin,Total 1.3 MG/DL (0.2-1.0); Calcium 8.7 MG/DL (8.5-10.1); Osmolality,Calculated 298.7 MOS/KG (273-304); Total Protein 7.4 G/DL (6.4-8.3)
[2019-11-02] MEDS: PIPERACILLIN/TAZOBACTAM 3,375 MG in SODIUM CHLORIDE 0.9% 100 ML IV SCH (23:56)
[2019-11-03] MEDS: ENOXAPARIN 30 MG/0.3 ML SYRINGE SUBCUT SCH ×2 (00:08→19:44)
[2019-11-03 00:23] LABS: ABG Base Excess -6.6 MMOL/L (-2.5-2.5); ABG HCO3 19.1 MMOL/L (20-26); ABG PCO2 42.9 MM HG (35-48); ABG PH 7.279 (7.35-7.45); ABG TCO2 18.1 MMOL/L (23-27); Allen Test Positive; Pt O2 Delivery Device Other
[2019-11-03] MEDS: ASPIRIN EC 81 MG TABLET PO SCH ×3 (01:19→21:16)
[2019-11-03] MEDS: FINASTERIDE 5 MG TABLET PO SCH ×2 (01:19→21:16)
[2019-11-03] MEDS: allopurinoL 100 MG TABLET PO SCH ×2 (01:20→21:16)
[2019-11-03] MEDS: LACTULOSE 20 GM/30 ML UDCUP PO SCH ×3 (01:20→21:15)
[2019-11-03] MEDS: ISOSORBIDE DINITRATE 20 MG TABLET PO SCH ×4 (01:20→21:16)
[2019-11-03] MEDS: DULoxetine 30 MG CAPSULE PO SCH ×2 (01:20→21:15)
[2019-11-03] MEDS: TAMSULOSIN 0.4 MG CAPSULE PO SCH ×2 (01:21→21:15)
[2019-11-03] MEDS: METOPROLOL SUCCINATE XL 25 MG TABLET PO SCH ×3 (01:46→21:15)
[2019-11-03] MEDS: hydrALAZINE 25 MG TABLET PO SCH ×3 (01:47→21:15)
[2019-11-03 04:43] LABS: Basophils % 0.1 % (0.0-0.8); Eosinophils % 0.2 % (0.00-10.9); Hematocrit 37.8 VOL% (42.0-52.0); Hemoglobin 11.9 GM/DL (14.0-18.0); Immature Granulocytes % 0.7 %; Immature Granulocytes Absolute 0.07 #; Lymphocytes # 0.7 10*3/uL (1.4-4.0); Lymphocytes % 6.8 % (21.2-54.2); Mean Corpuscular HGB Conc 31.5 GM/DL (32-36); Mean Corpuscular Volume 68.1 FL (87-102); Mean Platelet Volume 10.8 FL (9.6-12.0); Monocytes % 13.6 % (1.7-12.7); NRBC # 0.02 10*3/uL; Neutrophils % 78.6 % (38.7-73.9); Platelet Count 185 T/CUMM (130-400); Red Blood Count 5.55 MC/CUMM (3.8-5.5); Red Cell Distribution Width 18.6 % (9.3-17.3); White Blood Count 10.1 T/CUMM (4-12)
[2019-11-03 05:11] LABS: Osmolality,Calculated 303.3 MOS/KG (273-304)
[2019-11-03] MEDS: INSULIN REGULAR 100 UNIT/ML SUBCUT SCH ×2 (10:22→18:00)
[2019-11-03] MEDS: PIPERACILLIN/TAZOBACTAM 3,375 MG in SODIUM CHLORIDE 0.9% 100 ML IV SCH ×2 (10:23→19:45)
[2019-11-03] MEDS: ACETIC ACID 0.25% IRRIGATION 1,000 ML BOTTLE IRRIG SCH (10:33)
[2019-11-03] MEDS: calcitrioL 0.25 MCG CAPSULE PO SCH (10:34)
[2019-11-03] MEDS: FOLIC ACID 1 MG TABLET PO SCH (10:34)
[2019-11-03] MEDS: PANTOPRAZOLE 40 MG TABLET PO SCH (10:35)
[2019-11-03] MEDS: FUROSEMIDE 100 MG/10 ML VIAL IV SCH ×2 (16:21→22:51)
[2019-11-04 06:43] LABS: Basophils % 0.2 % (0.0-0.8); Eosinophils % 0.4 % (0.00-10.9); Hematocrit 36.8 VOL% (42.0-52.0); Hemoglobin 11.8 GM/DL (14.0-18.0); Immature Granulocytes % 1.3 %; Immature Granulocytes Absolute 0.12 #; Lymphocytes # 0.8 10*3/uL (1.4-4.0); Mean Corpuscular HGB Conc 32.1 GM/DL (32-36); Mean Corpuscular Volume 68.4 FL (87-102); Mean Platelet Volume 10.7 FL (9.6-12.0); Monocytes % 13.2 % (1.7-12.7); Neutrophils % 75.9 % (38.7-73.9); Platelet Count 200 T/CUMM (130-400); Red Blood Count 5.38 MC/CUMM (3.8-5.5); Red Cell Distribution Width 18.6 % (9.3-17.3); White Blood Count 9.1 T/CUMM (4-12)
[2019-11-04] MEDS: FUROSEMIDE 100 MG/10 ML VIAL IV SCH ×3 (06:50→21:43)
[2019-11-04 07:18] LABS: Osmolality,Calculated 299.5 MOS/KG (273-304)
[2019-11-04 08:09] LABS: Hepatitis B Core IgM Quant < 0.05 Index; Hepatitis B Surface Ag Quant 0.14 Index; Hepatitis B Surface Ag Result Negative (Negative); Hepatitis C Virus Ab Quant 0.24 Index; Hepatitis C Virus Ab Result Negative (Negative)
[2019-11-04] MEDS: PIPERACILLIN/TAZOBACTAM 3,375 MG in SODIUM CHLORIDE 0.9% 100 ML IV SCH ×2 (08:13→21:39)
[2019-11-04] MEDS: INSULIN REGULAR 100 UNIT/ML SUBCUT SCH ×2 (08:24→17:04)
[2019-11-04] MEDS: ASPIRIN EC 81 MG TABLET PO SCH ×2 (09:11→21:46)
[2019-11-04] MEDS: calcitrioL 0.25 MCG CAPSULE PO SCH (09:11)
[2019-11-04] MEDS: FOLIC ACID 1 MG TABLET PO SCH (09:11)
[2019-11-04] MEDS: ISOSORBIDE DINITRATE 20 MG TABLET PO SCH ×3 (09:12→21:46)
[2019-11-04] MEDS: LACTULOSE 20 GM/30 ML UDCUP PO SCH ×2 (09:12→21:46)
[2019-11-04] MEDS: PANTOPRAZOLE 40 MG TABLET PO SCH (09:12)
[2019-11-04] MEDS: METOPROLOL SUCCINATE XL 25 MG TABLET PO SCH ×2 (09:12→21:45)
[2019-11-04] MEDS: ACETIC ACID 0.25% IRRIGATION 1,000 ML BOTTLE IRRIG SCH (09:12)
[2019-11-04] MEDS: hydrALAZINE 25 MG TABLET PO SCH ×2 (09:12→21:46)
[2019-11-04] MEDS: LEVOFLOXACIN INJ 500 MG in PREMIX 1 EACH IV SCH (17:00)
[2019-11-04] MEDS: ENOXAPARIN 30 MG/0.3 ML SYRINGE SUBCUT SCH (21:44)
[2019-11-04] MEDS: FINASTERIDE 5 MG TABLET PO SCH (21:45)
[2019-11-04] MEDS: allopurinoL 100 MG TABLET PO SCH (21:46)
[2019-11-04] MEDS: TAMSULOSIN 0.4 MG CAPSULE PO SCH (21:46)
[2019-11-04] MEDS: DULoxetine 30 MG CAPSULE PO SCH (21:46)
[2019-11-05 05:42] LABS: Basophils % 0.2 % (0.0-0.8); Eosinophils # 0.1 10*3/uL (0.0-0.87); Eosinophils % 1.1 % (0.00-10.9); Hematocrit 37.8 VOL% (42.0-52.0); Hemoglobin 12.1 GM/DL (14.0-18.0); Immature Granulocytes % 0.6 %; Immature Granulocytes Absolute 0.05 #; Lymphocytes # 0.9 10*3/uL (1.4-4.0); Lymphocytes % 10.2 % (21.2-54.2); Mean Corpuscular Volume 68.1 FL (87-102); Monocytes % 13.2 % (1.7-12.7); Neutrophils % 74.7 % (38.7-73.9); Platelet Count 202 T/CUMM (130-400); Red Blood Count 5.55 MC/CUMM (3.8-5.5); Red Cell Distribution Width 18.4 % (9.3-17.3); White Blood Count 8.6 T/CUMM (4-12)
[2019-11-05] MEDS: FUROSEMIDE 100 MG/10 ML VIAL IV SCH (06:05)
[2019-11-05 06:16] LABS: Calcium 8.9 MG/DL (8.5-10.1); Osmolality,Calculated 308.6 MOS/KG (273-304)
[2019-11-05 06:34] LABS: Platelet Estimate Adequate; Polychromasia Few; Target Cells Few
[2019-11-05] MEDS: INSULIN REGULAR 100 UNIT/ML SUBCUT SCH ×2 (09:23→17:09)
[2019-11-05] MEDS: PIPERACILLIN/TAZOBACTAM 3,375 MG in SODIUM CHLORIDE 0.9% 100 ML IV SCH ×2 (10:50→21:08)
[2019-11-05] MEDS: METOPROLOL SUCCINATE XL 25 MG TABLET PO SCH ×2 (10:54→21:09)
[2019-11-05] MEDS: ASPIRIN EC 81 MG TABLET PO SCH ×2 (10:55→21:08)
[2019-11-05] MEDS: ACETIC ACID 0.25% IRRIGATION 1,000 ML BOTTLE IRRIG SCH (10:55)
[2019-11-05] MEDS: FOLIC ACID 1 MG TABLET PO SCH (10:55)
[2019-11-05] MEDS: LACTULOSE 20 GM/30 ML UDCUP PO SCH ×2 (10:55→21:08)
[2019-11-05] MEDS: calcitrioL 0.25 MCG CAPSULE PO SCH (10:55)
[2019-11-05] MEDS: ISOSORBIDE DINITRATE 20 MG TABLET PO SCH ×3 (10:55→21:09)
[2019-11-05] MEDS: hydrALAZINE 25 MG TABLET PO SCH ×2 (10:55→21:08)
[2019-11-05] MEDS: PANTOPRAZOLE 40 MG TABLET PO SCH (10:55)
[2019-11-05] MEDS: FUROSEMIDE 40 MG/4 ML VIAL IV SCH (16:45)
[2019-11-05] MEDS: TAMSULOSIN 0.4 MG CAPSULE PO SCH (21:07)
[2019-11-05] MEDS: DULoxetine 30 MG CAPSULE PO SCH (21:07)
[2019-11-05] MEDS: ENOXAPARIN 30 MG/0.3 ML SYRINGE SUBCUT SCH (21:08)
[2019-11-05] MEDS: allopurinoL 100 MG TABLET PO SCH (21:08)
[2019-11-05] MEDS: FINASTERIDE 5 MG TABLET PO SCH (21:09)
[2019-11-06 06:12] LABS: Basophils % 0.2 % (0.0-0.8); Eosinophils # 0.1 10*3/uL (0.0-0.87); Eosinophils % 1.7 % (0.00-10.9); Hematocrit 36.6 VOL% (42.0-52.0); Hemoglobin 11.8 GM/DL (14.0-18.0); Immature Granulocytes % 0.6 %; Immature Granulocytes Absolute 0.05 #; Lymphocytes # 0.9 10*3/uL (1.4-4.0); Lymphocytes % 11.2 % (21.2-54.2); Mean Corpuscular HGB Conc 32.2 GM/DL (32-36); Mean Corpuscular Volume 67.2 FL (87-102); Mean Platelet Volume 10.6 FL (9.6-12.0); Monocytes % 11.7 % (1.7-12.7); Neutrophils % 74.6 % (38.7-73.9); Platelet Count 198 T/CUMM (130-400); Red Blood Count 5.45 MC/CUMM (3.8-5.5); Red Cell Distribution Width 17.6 % (9.3-17.3); White Blood Count 8.4 T/CUMM (4-12)
[2019-11-06] MEDS: INSULIN REGULAR 100 UNIT/ML SUBCUT SCH ×2 (08:38→16:54)
[2019-11-06] MEDS: ISOSORBIDE DINITRATE 20 MG TABLET PO SCH ×3 (09:37→22:33)
[2019-11-06] MEDS: hydrALAZINE 25 MG TABLET PO SCH ×2 (09:37→22:33)
[2019-11-06] MEDS: METOPROLOL SUCCINATE XL 25 MG TABLET PO SCH ×2 (09:37→22:32)
[2019-11-06] MEDS: LACTULOSE 20 GM/30 ML UDCUP PO SCH ×2 (09:37→22:32)
[2019-11-06] MEDS: calcitrioL 0.25 MCG CAPSULE PO SCH (09:38)
[2019-11-06] MEDS: FUROSEMIDE 40 MG/4 ML VIAL IV SCH (09:39)
[2019-11-06] MEDS: FOLIC ACID 1 MG TABLET PO SCH (09:39)
[2019-11-06] MEDS: PANTOPRAZOLE 40 MG TABLET PO SCH (09:39)
[2019-11-06] MEDS: ASPIRIN EC 81 MG TABLET PO SCH ×2 (09:39→22:32)
[2019-11-06] MEDS: PIPERACILLIN/TAZOBACTAM 3,375 MG in SODIUM CHLORIDE 0.9% 100 ML IV SCH ×2 (09:44→22:33)
[2019-11-06] MEDS: ACETIC ACID 0.25% IRRIGATION 1,000 ML BOTTLE IRRIG SCH (09:44)
[2019-11-06 11:00] LABS: Albumin 1.9 G/DL (3.4-5.0); Calcium 8.7 MG/DL (8.5-10.1)
[2019-11-06] MEDS: POTASSIUM CHLORIDE 20 MEQ TABLET PO PRN ×4 (13:26→22:33)
[2019-11-06] MEDS: CHOLECALCIFEROL 1,000 UNIT TABLET PO SCH (15:30)
[2019-11-06] MEDS: FUROSEMIDE 80 MG TABLET PO SCH (15:30)
[2019-11-06] MEDS: LEVOFLOXACIN INJ 500 MG in PREMIX 1 EACH IV SCH (17:35)
[2019-11-06] MEDS: TAMSULOSIN 0.4 MG CAPSULE PO SCH (22:32)
[2019-11-06] MEDS: allopurinoL 100 MG TABLET PO SCH (22:32)
[2019-11-06] MEDS: DULoxetine 30 MG CAPSULE PO SCH (22:32)
[2019-11-06] MEDS: FINASTERIDE 5 MG TABLET PO SCH (22:33)
[2019-11-06] MEDS: ENOXAPARIN 30 MG/0.3 ML SYRINGE SUBCUT SCH (22:33)
[2019-11-07 06:30] LABS: Basophils % 0.2 % (0.0-0.8); Eosinophils # 0.1 10*3/uL (0.0-0.87); Hematocrit 37.7 VOL% (42.0-52.0); Hemoglobin 12.4 GM/DL (14.0-18.0); Immature Granulocytes % 0.9 %; Immature Granulocytes Absolute 0.08 #; Lymphocytes # 1.3 10*3/uL (1.4-4.0); Lymphocytes % 14.2 % (21.2-54.2); Mean Corpuscular HGB Conc 32.9 GM/DL (32-36); Mean Corpuscular Volume 66.4 FL (87-102); Mean Platelet Volume 10.5 FL (9.6-12.0); Monocytes % 9.1 % (1.7-12.7); Neutrophils % 74.6 % (38.7-73.9); Platelet Count 173 T/CUMM (130-400); Red Blood Count 5.68 MC/CUMM (3.8-5.5); Red Cell Distribution Width 18.1 % (9.3-17.3); White Blood Count 9.1 T/CUMM (4-12)
[2019-11-07 06:41] LABS: Albumin 2.1 G/DL (3.4-5.0); Calcium 8.7 MG/DL (8.5-10.1); Osmolality,Calculated 294.5 MOS/KG (273-304)
[2019-11-07] MEDS: INSULIN REGULAR 100 UNIT/ML SUBCUT SCH ×2 (08:16→19:07)
[2019-11-07] MEDS: LACTULOSE 20 GM/30 ML UDCUP PO SCH ×2 (09:42→21:41)
[2019-11-07] MEDS: METOPROLOL SUCCINATE XL 25 MG TABLET PO SCH ×2 (09:42→21:40)
[2019-11-07] MEDS: ISOSORBIDE DINITRATE 20 MG TABLET PO SCH ×3 (09:42→21:41)
[2019-11-07] MEDS: POTASSIUM CHLORIDE 20 MEQ TABLET PO PRN ×2 (09:42→12:10)
[2019-11-07] MEDS: hydrALAZINE 25 MG TABLET PO SCH ×2 (09:42→21:40)
[2019-11-07] MEDS: FUROSEMIDE 80 MG TABLET PO SCH ×2 (09:42→15:00)
[2019-11-07] MEDS: calcitrioL 0.25 MCG CAPSULE PO SCH (09:43)
[2019-11-07] MEDS: PANTOPRAZOLE 40 MG TABLET PO SCH (09:43)
[2019-11-07] MEDS: PIPERACILLIN/TAZOBACTAM 3,375 MG in SODIUM CHLORIDE 0.9% 100 ML IV SCH ×2 (09:43→21:41)
[2019-11-07] MEDS: CHOLECALCIFEROL 1,000 UNIT TABLET PO SCH (09:43)
[2019-11-07] MEDS: ASPIRIN EC 81 MG TABLET PO SCH ×2 (09:43→21:41)
[2019-11-07] MEDS: FOLIC ACID 1 MG TABLET PO SCH (09:43)
[2019-11-07] MEDS: ACETIC ACID 0.25% IRRIGATION 1,000 ML BOTTLE IRRIG SCH (09:43)
[2019-11-07] MEDS: allopurinoL 100 MG TABLET PO SCH (21:40)
[2019-11-07] MEDS: TAMSULOSIN 0.4 MG CAPSULE PO SCH (21:40)
[2019-11-07] MEDS: ENOXAPARIN 40 MG/0.4 ML SYRINGE SUBCUT SCH (21:40)
[2019-11-07] MEDS: FINASTERIDE 5 MG TABLET PO SCH (21:41)
[2019-11-07] MEDS: DULoxetine 30 MG CAPSULE PO SCH (21:41)
[2019-11-08 05:51] LABS: Basophils % 0.3 % (0.0-0.8); Eosinophils # 0.1 10*3/uL (0.0-0.87); Hematocrit 41.5 VOL% (42.0-52.0); Hemoglobin 13.5 GM/DL (14.0-18.0); Immature Granulocytes % 1.1 %; Immature Granulocytes Absolute 0.08 #; Lymphocytes # 1.1 10*3/uL (1.4-4.0); Lymphocytes % 15.7 % (21.2-54.2); Mean Corpuscular HGB Conc 32.5 GM/DL (32-36); Mean Corpuscular Volume 66.7 FL (87-102); Monocytes % 7.3 % (1.7-12.7); Neutrophils % 74.6 % (38.7-73.9); Platelet Count 135 T/CUMM (130-400); Red Blood Count 6.22 MC/CUMM (3.8-5.5); Red Cell Distribution Width 18.5 % (9.3-17.3); White Blood Count 7.1 T/CUMM (4-12)
[2019-11-08 06:10] LABS: Platelet Estimate Decreased; Polychromasia Few
[2019-11-08 06:11] LABS: Albumin 2.1 G/DL (3.4-5.0); Calcium 8.3 MG/DL (8.5-10.1)
[2019-11-08] MEDS: METOPROLOL SUCCINATE XL 25 MG TABLET PO SCH ×2 (09:38→21:37)
[2019-11-08] MEDS: LACTULOSE 20 GM/30 ML UDCUP PO SCH ×2 (09:38→21:39)
[2019-11-08] MEDS: PANTOPRAZOLE 40 MG TABLET PO SCH (09:38)
[2019-11-08] MEDS: ISOSORBIDE DINITRATE 20 MG TABLET PO SCH ×3 (09:38→21:38)
[2019-11-08] MEDS: calcitrioL 0.25 MCG CAPSULE PO SCH (09:38)
[2019-11-08] MEDS: FOLIC ACID 1 MG TABLET PO SCH (09:38)
[2019-11-08] MEDS: PIPERACILLIN/TAZOBACTAM 3,375 MG in SODIUM CHLORIDE 0.9% 100 ML IV SCH ×2 (09:38→21:37)
[2019-11-08] MEDS: ASPIRIN EC 81 MG TABLET PO SCH ×2 (09:38→21:38)
[2019-11-08] MEDS: hydrALAZINE 25 MG TABLET PO SCH ×2 (09:38→21:38)
[2019-11-08] MEDS: ACETIC ACID 0.25% IRRIGATION 1,000 ML BOTTLE IRRIG SCH (09:38)
[2019-11-08] MEDS: CHOLECALCIFEROL 1,000 UNIT TABLET PO SCH (09:38)
[2019-11-08] MEDS: FUROSEMIDE 80 MG TABLET PO SCH ×2 (09:38→15:59)
[2019-11-08] MEDS: INSULIN REGULAR 100 UNIT/ML SUBCUT SCH ×2 (10:13→17:33)
[2019-11-08] MEDS: LEVOFLOXACIN INJ 500 MG in PREMIX 1 EACH IV SCH (17:34)
[2019-11-08] MEDS: TAMSULOSIN 0.4 MG CAPSULE PO SCH (21:37)
[2019-11-08] MEDS: DULoxetine 30 MG CAPSULE PO SCH (21:37)
[2019-11-08] MEDS: FINASTERIDE 5 MG TABLET PO SCH (21:38)
[2019-11-08] MEDS: allopurinoL 100 MG TABLET PO SCH (21:38)
[2019-11-08] MEDS: ENOXAPARIN 40 MG/0.4 ML SYRINGE SUBCUT SCH (21:39)
[2019-11-09 05:56] LABS: Albumin 2.2 G/DL (3.4-5.0); Calcium 8.6 MG/DL (8.5-10.1); Osmolality,Calculated 295.4 MOS/KG (273-304)
[2019-11-09] MEDS: INSULIN REGULAR 100 UNIT/ML SUBCUT SCH (08:57)
[2019-11-09] MEDS: CHOLECALCIFEROL 1,000 UNIT TABLET PO SCH (09:30)
[2019-11-09] MEDS: FUROSEMIDE 80 MG TABLET PO SCH ×2 (09:30→16:16)
[2019-11-09] MEDS: FOLIC ACID 1 MG TABLET PO SCH (09:30)
[2019-11-09] MEDS: calcitrioL 0.25 MCG CAPSULE PO SCH (09:30)
[2019-11-09] MEDS: ASPIRIN EC 81 MG TABLET PO SCH (09:30)
[2019-11-09] MEDS: PANTOPRAZOLE 40 MG TABLET PO SCH (09:30)
[2019-11-09] MEDS: hydrALAZINE 25 MG TABLET PO SCH ×2 (09:30→16:16)
[2019-11-09] MEDS: ISOSORBIDE DINITRATE 20 MG TABLET PO SCH ×2 (09:30→16:16)
[2019-11-09] MEDS: PIPERACILLIN/TAZOBACTAM 3,375 MG in SODIUM CHLORIDE 0.9% 100 ML IV SCH (09:31)
[2019-11-09] MEDS: METOPROLOL SUCCINATE XL 25 MG TABLET PO SCH (09:31)
[2019-11-09] MEDS: ACETIC ACID 0.25% IRRIGATION 1,000 ML BOTTLE IRRIG SCH (09:32)
[2019-11-09] MEDS: LACTULOSE 20 GM/30 ML UDCUP PO SCH (09:35)
[2019-11-09] MEDS ORDERED: CHOLECALCIFEROL 1,000 UNIT TABLET PO SCH (11:16)
[2019-11-09] MEDS ORDERED: calcitrioL 0.25 MCG CAPSULE PO SCH (11:16)
[2019-11-09] MEDS ORDERED: allopurinoL 100 MG TABLET PO SCH (11:44)
[2019-11-09 17:20] VITALS: BP 172/80
[2019-11-10] MEDS ORDERED: LEVOFLOXACIN 500 MG TABLET PO SCH (09:00)
== END 2019-11-09 17:22 | DRG 194 ==
LOC: EDBD → EDUNIT# → N.ED 16:04 → N.EDINP 18:36 → N.TELES 19:20
PROVIDERS: ADMIT Hospitalist; ATTEND Hospitalist

== ENCOUNTER 2019-11-29 12:58 | Inpatient (IN) ==
[2019-11-29] MEDS ORDERED: ONDANSETRON 4 MG/2 ML VIAL IV STA (13:42)
[2019-11-29] MEDS ORDERED: NITROGLYCERIN 2% OINT 1 INCH/GM PACK TOP STA (13:42)
[2019-11-29] MEDS ORDERED: DILTIAZEM 50 MG/10 ML VIAL IV STA (13:42)
[2019-11-29] MEDS ORDERED: FUROSEMIDE 40 MG/4 ML VIAL IV STA (13:42)
[2019-11-29] MEDS ORDERED: MORPHINE 4 MG/1 ML VIAL IV STA (13:42)
[2019-11-29 14:13] LABS: Basophils % 0.2 % (0.0-0.8); Eosinophils # 0.1 10*3/uL (0.0-0.87); Eosinophils % 0.7 % (0.00-10.9); Hemoglobin 12.1 GM/DL (14.0-18.0); Immature Granulocytes % 0.4 %; Immature Granulocytes Absolute 0.04 #; Lymphocytes % 11.3 % (21.2-54.2); Mean Corpuscular HGB Conc 31.8 GM/DL (32-36); Mean Corpuscular Volume 68.1 FL (87-102); Monocytes % 8.4 % (1.7-12.7); Platelet Count 171 T/CUMM (130-400); Red Blood Count 5.58 MC/CUMM (3.8-5.5); White Blood Count 9.2 T/CUMM (4-12)
[2019-11-29 14:17] LABS: INR 1.1
[2019-11-29 14:42] LABS: Alanine Aminotransferase 38 U/L (16-61); Albumin 2.6 G/DL (3.4-5.0); Alkaline Phosphatase 178 U/L (45-117); Aspartate Amino Transferase 62 U/L (0-37); Blood Urea Nitrogen 45 MG/DL (7-18); Calcium 8.6 MG/DL (8.5-10.1); Estimated Glom Filtration Rate 63 ML/MIN; Glucose 122 MG/DL (74-106); Total Protein 8.6 G/DL (6.4-8.3)
[2019-11-29 14:59] LABS: Platelet Estimate Normal
[2019-11-29 15:00] LABS: Anisocytosis 2+; Hypochromasia 1+; Microcytosis 2+; Polychromasia 1+
[2019-11-29] MEDS ORDERED: hydrALAZINE 20 MG/1 ML VIAL IV PRN (15:47)
[2019-11-29] MEDS ORDERED: DOCUSATE SODIUM 100 MG CAPSULE PO PRN (15:48)
[2019-11-29] MEDS ORDERED: ONDANSETRON 4 MG/2 ML VIAL IV PRN (15:48)
[2019-11-29] MEDS ORDERED: GLUCAGON 1 MG VIAL IM PRN (16:01)
[2019-11-29] MEDS ORDERED: DEXTROSE 10% 250 ML BAG IV PRN (16:01)
[2019-11-29 16:36] LABS: Risk Ratio 2.83; Thyroid Stimulating Hormone 3.19 uIU/ml (0.358-3.74)
[2019-11-29] MEDS: INSULIN LISPRO 100 UNIT/ML SUBCUT SCH ×2 (17:30→20:24)
[2019-11-29] MEDS: ENOXAPARIN 40 MG/0.4 ML SYRINGE SUBCUT SCH (17:39)
[2019-11-29] MEDS ORDERED: carvediloL 6.25 MG TABLET PO SCH (21:00)
[2019-11-29] MEDS ORDERED: SACUBITRIL/VALSARTAN 49-51 MG TABLET PO SCH ×2 (21:00)
[2019-11-29] MEDS ORDERED: ISOSORBIDE DINITRATE 20 MG TABLET PO SCH (21:00)
[2019-11-29] MEDS ORDERED: hydrALAZINE 25 MG TABLET PO SCH (21:00)
[2019-11-29] MEDS: ASPIRIN EC 81 MG TABLET PO SCH (21:05)
[2019-11-29] MEDS: ACETAMINOPHEN 325 MG TABLET PO PRN (21:13)
[2019-11-29] MEDS: FUROSEMIDE 40 MG/4 ML VIAL IV SCH (21:20)
[2019-11-29 22:45] LABS: Apearance,Urine Slightly Hazy (Clear); Bacteria,Urine Occasional /HPF (Few); Bilirubin,Urine Negative (Negative); Blood, Urine Moderate mg/dL (Negative); Glucose,Urine (UA) Negative (Negative); Hyaline Casts,Urine 12 /LPF (0-3); Ketones,Urine Negative (Negative); Mucus,Urine Occasional /LPF (Occasional); Nitrite,Urine Negative (Negative); Protein,Urine 100 MG/DL; RBC,Urine 3 /HPF (0-4); Squamous Epithelial Cell,Urine Occasional /HPF (0-10); Urine Color Yellow (Yellow); Urine Specific Gravity 1.012 (1.001-1.035); WBC,Urine 2 /HPF (0-6)
[2019-11-29 22:56] LABS: Barbiturates Screen,Urine Negative (Negative); Benzodiazepines Screen,Urine Negative (Negative); Cannabinoid Screen,Urine Negative (Negative); Opiate Screen,Urine Positive (Negative); Phencyclidine Screen,Urine Negative (Negative)
[2019-11-30] MEDS: ACETAMINOPHEN 325 MG TABLET PO PRN ×2 (02:17→11:55)
[2019-11-30 05:51] LABS: Basophils % 0.1 % (0.0-0.8); Eosinophils # 0.1 10*3/uL (0.0-0.87); Hematocrit 32.1 VOL% (42.0-52.0); Hemoglobin 10.3 GM/DL (14.0-18.0); Immature Granulocytes % 0.4 %; Immature Granulocytes Absolute 0.03 #; Lymphocytes # 1.3 10*3/uL (1.4-4.0); Lymphocytes % 18.4 % (21.2-54.2); Mean Corpuscular HGB Conc 32.1 GM/DL (32-36); Mean Corpuscular Volume 67.2 FL (87-102); Monocytes % 9.4 % (1.7-12.7); Neutrophils % 69.7 % (38.7-73.9); Platelet Count 157 T/CUMM (130-400); Red Blood Count 4.78 MC/CUMM (3.8-5.5); Red Cell Distribution Width 18.8 % (9.3-17.3); White Blood Count 7.1 T/CUMM (4-12)
[2019-11-30 06:08] LABS: Calcium 8.4 MG/DL (8.5-10.1); Osmolality,Calculated 286.8 MOS/KG (273-304)
[2019-11-30 06:15] LABS: Hypochromasia 1+; Microcytosis 1+; Platelet Estimate Adequate
[2019-11-30] MEDS: INSULIN LISPRO 100 UNIT/ML SUBCUT SCH ×4 (07:48→23:31)
[2019-11-30] MEDS: FUROSEMIDE 40 MG/4 ML VIAL IV SCH ×2 (08:05→16:42)
[2019-11-30] MEDS: PANTOPRAZOLE 40 MG TABLET PO SCH (08:50)
[2019-11-30] MEDS: ASPIRIN EC 81 MG TABLET PO SCH ×2 (08:50→20:30)
[2019-11-30] MEDS ORDERED: carvediloL 3.125 MG TABLET PO SCH (09:00)
[2019-11-30] MEDS: carvediloL 6.25 MG TABLET PO SCH ×2 (09:20→20:30)
[2019-11-30] MEDS ORDERED: SACUBITRIL/VALSARTAN 49-51 MG TABLET PO ONE (09:20)
[2019-11-30] MEDS ORDERED: ACETAMINOPHEN 325 MG TABLET PO PRN (14:23)
[2019-11-30] MEDS: DESITIN 4OZ/NYSTATIN 15 GRAM MIXTURE PASTE TOP SCH ×2 (14:30→20:30)
[2019-11-30] MEDS: SKIN HEALING OINT (AQUAPHOR) 50 GM TUBE TOP PRN ×2 (14:52→20:30)
[2019-11-30] MEDS: ENOXAPARIN 40 MG/0.4 ML SYRINGE SUBCUT SCH (16:42)
[2019-11-30] MEDS: SACUBITRIL/VALSARTAN 49-51 MG TABLET PO SCH (20:29)
[2019-12-01 04:56] LABS: Basophils % 0.3 % (0.0-0.8); Eosinophils # 0.1 10*3/uL (0.0-0.87); Eosinophils % 1.7 % (0.00-10.9); Hematocrit 33.3 VOL% (42.0-52.0); Hemoglobin 10.8 GM/DL (14.0-18.0); Immature Granulocytes % 0.4 %; Immature Granulocytes Absolute 0.03 #; Lymphocytes # 1.4 10*3/uL (1.4-4.0); Mean Corpuscular HGB Conc 32.4 GM/DL (32-36); Mean Corpuscular Volume 66.3 FL (87-102); Neutrophils % 67.6 % (38.7-73.9); Platelet Count 162 T/CUMM (130-400); Red Blood Count 5.02 MC/CUMM (3.8-5.5); Red Cell Distribution Width 18.8 % (9.3-17.3); White Blood Count 7.7 T/CUMM (4-12)
[2019-12-01 05:15] LABS: Calcium 8.4 MG/DL (8.5-10.1); Osmolality,Calculated 286.8 MOS/KG (273-304)
[2019-12-01 05:19] LABS: Hypochromasia Slight; Platelet Estimate Adequate; Target Cells Few
[2019-12-01 05:20] LABS: Microcytosis Slight
[2019-12-01] MEDS: INSULIN LISPRO 100 UNIT/ML SUBCUT SCH ×2 (08:35→13:26)
[2019-12-01] MEDS: carvediloL 6.25 MG TABLET PO SCH (09:23)
[2019-12-01] MEDS: PANTOPRAZOLE 40 MG TABLET PO SCH (09:23)
[2019-12-01] MEDS: ASPIRIN EC 81 MG TABLET PO SCH (09:23)
[2019-12-01] MEDS: SACUBITRIL/VALSARTAN 49-51 MG TABLET PO SCH (09:23)
[2019-12-01] MEDS: FUROSEMIDE 40 MG/4 ML VIAL IV SCH (09:23)
[2019-12-01] MEDS: DESITIN 4OZ/NYSTATIN 15 GRAM MIXTURE PASTE TOP SCH (09:26)
[2019-12-01 12:45] VITALS: BP 117/77
== END 2019-12-01 15:44 | disposition home or self-care (01) | DRG 194 ==
LOC: N.ED 12:58 → N.EDINP 15:48 → SUATTDRO 15:48 → N.ICU 18:08 → N.TELEN 11-30 15:13
PROVIDERS: ADMIT Internal Medicine; ATTEND Internal Medicine

== ENCOUNTER 2019-12-06 15:49 | Observation (INO) ==
[2019-12-06] MEDS ORDERED: NITROGLYCERIN SL 0.4 MG TABLET SL PRN (16:24)
[2019-12-06] MEDS ORDERED: ASPIRIN 325 MG TABLET PO STA (16:24)
[2019-12-06] MEDS ORDERED: FUROSEMIDE 40 MG/4 ML VIAL IV STA (16:26)
[2019-12-06 16:59] LABS: Basophils % 0.3 % (0.0-0.8); Eosinophils # 0.3 10*3/uL (0.0-0.87); Eosinophils % 3.6 % (0.00-10.9); Hematocrit 37.7 VOL% (42.0-52.0); Hemoglobin 12.1 GM/DL (14.0-18.0); Immature Granulocytes % 0.3 %; Immature Granulocytes Absolute 0.02 #; Lymphocytes # 1.2 10*3/uL (1.4-4.0); Lymphocytes % 17.4 % (21.2-54.2); Mean Corpuscular HGB Conc 32.1 GM/DL (32-36); Mean Corpuscular Volume 67.6 FL (87-102); Mean Platelet Volume 9.8 FL (9.6-12.0); Monocytes % 9.1 % (1.7-12.7); Neutrophils % 69.3 % (38.7-73.9); Platelet Count 207 T/CUMM (130-400); Red Blood Count 5.58 MC/CUMM (3.8-5.5); Red Cell Distribution Width 20.6 % (9.3-17.3); White Blood Count 6.9 T/CUMM (4-12)
[2019-12-06 17:17] LABS: Anisocytosis Slight; Hypochromasia Slight; Microcytosis Slight; Target Cells Slight
[2019-12-06 17:19] LABS: Albumin 2.6 G/DL (3.4-5.0); Bilirubin,Total 1.4 MG/DL (0.2-1.0); Calcium 9.3 MG/DL (8.5-10.1); Osmolality,Calculated 298.7 MOS/KG (273-304); Total Protein 8.2 G/DL (6.4-8.3)
[2019-12-06 17:24] LABS: Apearance,Urine Slightly Hazy (Clear); Bacteria,Urine Occasional /HPF (Few); Bilirubin,Urine Negative (Negative); Blood, Urine Moderate mg/dL (Negative); Glucose,Urine (UA) Negative (Negative); Hyaline Casts,Urine 4 /LPF (0-3); Ketones,Urine Negative (Negative); Mucus,Urine Occasional /LPF (Occasional); Nitrite,Urine Negative (Negative); Protein,Urine 100 MG/DL; RBC,Urine 3 /HPF (0-4); Squamous Epithelial Cell,Urine Occasional /HPF (0-10); Urine Color Yellow (Yellow); Urine Specific Gravity 1.014 (1.001-1.035)
[2019-12-06 17:25] LABS: Barbiturates Screen,Urine Negative (Negative); Benzodiazepines Screen,Urine Negative (Negative); Cannabinoid Screen,Urine Negative (Negative); Opiate Screen,Urine Negative (Negative); Phencyclidine Screen,Urine Negative (Negative)
[2019-12-06] MEDS ORDERED: ACETAMINOPHEN 500 MG TABLET PO PRN (18:30)
[2019-12-06] MEDS ORDERED: DEXTROSE 10% 250 ML BAG IV PRN (18:34)
[2019-12-06] MEDS ORDERED: GLUCAGON 1 MG VIAL IM PRN (18:34)
[2019-12-06] MEDS ORDERED: ENOXAPARIN 40 MG/0.4 ML SYRINGE SUBCUT SCH (21:00)
[2019-12-06] MEDS: ASPIRIN EC 81 MG TABLET PO SCH (22:46)
[2019-12-06] MEDS: hydrALAZINE 25 MG TABLET PO SCH (22:46)
[2019-12-06] MEDS: INSULIN REGULAR 100 UNIT/ML SUBCUT SCH (22:47)
[2019-12-06] MEDS: FUROSEMIDE 80 MG TABLET PO SCH (22:47)
[2019-12-07 05:56] LABS: Basophils % 0.3 % (0.0-0.8); Eosinophils # 0.3 10*3/uL (0.0-0.87); Eosinophils % 3.6 % (0.00-10.9); Hematocrit 34.2 VOL% (42.0-52.0); Hemoglobin 11.1 GM/DL (14.0-18.0); Immature Granulocytes % 0.6 %; Immature Granulocytes Absolute 0.04 #; Lymphocytes # 1.2 10*3/uL (1.4-4.0); Lymphocytes % 16.9 % (21.2-54.2); Mean Corpuscular HGB Conc 32.5 GM/DL (32-36); Mean Corpuscular Volume 67.2 FL (87-102); Monocytes % 10.3 % (1.7-12.7); Neutrophils % 68.3 % (38.7-73.9); Platelet Count 157 T/CUMM (130-400); Red Blood Count 5.09 MC/CUMM (3.8-5.5); Red Cell Distribution Width 20.2 % (9.3-17.3)
[2019-12-07 06:21] LABS: Hypochromasia 1+; Target Cells Few
[2019-12-07 06:22] LABS: Microcytosis Slight; Platelet Estimate Adequate
[2019-12-07 06:23] LABS: Calcium 9.1 MG/DL (8.5-10.1); Osmolality,Calculated 291.4 MOS/KG (273-304)
[2019-12-07] MEDS: INSULIN REGULAR 100 UNIT/ML SUBCUT SCH ×2 (08:22→12:08)
[2019-12-07] MEDS: hydrALAZINE 25 MG TABLET PO SCH (08:57)
[2019-12-07] MEDS: FUROSEMIDE 80 MG TABLET PO SCH (08:57)
[2019-12-07] MEDS: ASPIRIN EC 81 MG TABLET PO SCH (08:57)
[2019-12-07 12:05] VITALS: BP 132/69
== END 2019-12-07 15:00 | disposition home or self-care (01) ==
LOC: EDBD → EDUNIT# → N.ED 15:49 → N.EDINP 15:49 → N.2W 19:48
PROVIDERS: ADMIT Emergency Medicine; ATTEND Emergency Medicine